=== PATIENT | male | born 1945 | race Caucasian/White ===

== ENCOUNTER → 2017-09-02 17:01 | Outpatient (CLI) | payer MEDICARE, OTHER, SELFPAY ==
[2017-09-02 17:08] LABS: Bacteria 0 SEEN /hpf (None Seen); Mucous, Urine 0 SEEN /hpf (<or=2+); Squamous Epithelial Cells - UA 0 SEEN /hpf (0-5); White Blood Cells 0 SEEN /hpf (0-5)
[2017-09-02 17:35] LABS: Color, Urine Yellow (Yellow); Glucose, Dipstick Normal (Normal); Ketone-Dipstick Negative (Negative); Leukocyte Esterase-Dipstick Negative /ul (Negative); Nitrite-Dipstick Negative (Negative); Occult Blood-Urine 10 /ul (Negative); Protein-Dipstick Negative (Negative); Specific Gravity, Urine 1.015 (1.002-1.030); Urine Bilirubin Dipstick Negative (Negative); Urine Clarity Clear (Clear); Urine Urobilinogen Normal (Normal)
[2017-09-02 17:45] LABS: Red Blood Cells-Urine 0-5 SEEN /hpf (0-5)
== END ==
PROVIDERS: Family Provider Preventive Medicine Occupational Medicine; PCP Preventive Medicine Occupational Medicine; Visit Provider Nurse Practitioner Adult Health
DX: R31.29 Other microscopic hematuria (principal)
CPT/HCPCS: 81001

== ENCOUNTER → 2018-12-15 06:30 | Outpatient (CLI) | payer MEDICARE, OTHER, SELFPAY ==
[2018-12-08 13:36] VITALS: BMI 25.7
--- NOTE | 2018-12-15 06:33 | MRI_ITS ---
STUDY: MRI BRAIN WITH AND WITHOUT CONTRAST REASON FOR EXAM: Male, 73 years old. Intermittent left-sided numbness. History of large B-cell lymphoma. CLL. TECHNIQUE: Standardized multiplanar fat and water weighted pulse sequences were obtained. 17 IV Dotarem was administered for the contrast portion of the examination. COMPARISON: MRI brain with and without contrast 08/17/2015. FINDINGS: No restricted diffusion to suspect acute or subacute ischemic infarct. Normal size of the ventricles and extra-axial spaces for the patient's age. Subcortical white matter T2 FLAIR hyperintensity foci in both cerebral hemispheres, left more than right. They are presumably secondary to microvascular disease and are unchanged. No midline shift and no mass effects. Normal bilateral basal ganglia. Normal thalami. There is no extra-axial fluid accumulation. Normal flow voids within the major intracranial circulation suggesting patency by spin echo criteria. Normal venous enhancement. There is no enhancing intra-axial or extra-axial abnormality. Normal sella turcica, pituitary gland, infundibular stalk, optic chiasm and hypothalamus. Normal tectal plate and pineal gland. Normal midbrain, laura and medulla. Normal cerebellum. Normal basal cisterns. Normal bilateral temporal bones. Normal bilateral internal auditory canals. No demonstrated orbital abnormality, within the constraints of a routine brain study. Normal visualized paranasal sinuses. Normal calvarium and skull base. Normal visualized soft tissue structures. Normal visualized upper cervical spine. MRI/Brain W/WO Contrast IMPRESSION: 1. No MRI evidence of acute or subacute ischemic infarct. 2. No MRI evidence of any enhancing lesions or enhancing mass extra-axially or intraaxially. 3. Chronic subcortical white matter ischemic changes in both cerebral hemispheres, left more than right. 4. No significant interval changes when compared to 08/17/2015. Electronically Signed: Hawk Bernal MD at 13:37 EDT , Service support ,
== END ==
PROVIDERS: Family Provider Preventive Medicine Occupational Medicine; PCP Preventive Medicine Occupational Medicine; Referring Provider Internal Medicine Medical Oncology; Visit Provider Internal Medicine Medical Oncology
DX: R20.2 Paresthesia of skin (principal)
CPT/HCPCS: 70553; A9575

== ENCOUNTER → 2019-06-14 12:33 | Outpatient (CLI) | payer MEDICARE, OTHER, SELFPAY ==
[2019-06-14 11:18] VITALS: BMI 25.9
[2019-06-14 12:15] VITALS: BMI 25.9
--- NOTE | 2019-06-14 12:34 | CT_ITS ---
STUDY: CT CHEST WITH CONTRAST REASON FOR EXAM: Male, 74 years old. HX NHL, NEW AXILLARY LUMP LEFT SIDE -- LAST CHEMO 2016 -- SURG-BILAT INGUINAL HERNIA -- +HTN RADIATION DOSAGE (If Supplied By Facility): CTDIvol = ( 16.21 ) mGy, DLP = ( 1536.09 ) mGycm TECHNIQUE: Transaxial imaging was performed following intravenous administration of IV 100mL Isovue-300. Individualized dose optimization techniques were used for this CT. COMPARISON: None. FINDINGS: Bilateral axillary lymphadenopathy consistent with known non-Hodgkin''s lymphoma. The largest discrete lymph node on the right measures 1.6 x 3.0 cm and the largest lymph node on the left measures 2.6 x 3.6 cm. The lungs are normal. There is no demonstrated pleural abnormality. Normal heart and pericardium. Normal mediastinum. Normal hilar regions. Normal enhanced pulmonary arteries. Normal aorta arch and descending thoracic aorta. Normal osseous structures. There is no demonstrated abnormality of the visualized upper abdomen. CT/Chest WITH Contrast IMPRESSION: Bilateral axillary lymphadenopathy consistent with known non-Hodgkin''s lymphoma. Electronically Signed: Arthur Aceves MD at 16:07 EST Tel , Service support ,
--- NOTE | 2019-06-14 12:34 | CT_ITS ---
STUDY: CT ABDOMEN AND PELVIS WITH CONTRAST REASON FOR EXAM: Male, 74 years old. HX NHL, NEW AXILLARY LUMP LEFT SIDE -- LAST CHEMO 2016 -- SURG-BILAT INGUINAL HERNIA -- +HTN RADIATION DOSAGE (If Supplied By Facility): CTDIvol = ( 16.21 ) mGy, DLP = ( 1536.09 ) mGycm TECHNIQUE: Transaxial images were obtained from the dome of the diaphragm to the symphysis pubis with oral contrast. IV 100mL Isovue-300 was administered. Sagittal and coronal images were reconstructed. Individualized dose optimization techniques were used for this CT. COMPARISON: None. FINDINGS: The visualized lung bases are unremarkable. The visualized portions of the heart are within normal limits. Normal liver. Normal gallbladder and extrahepatic biliary system. Normal spleen. Normal pancreas. Normal bilateral adrenal glands. 3 cm cyst lower pole right kidney. 3 cm exophytic cyst in the midsection left kidney. Normal visualized stomach. Normal small intestine. There are multiple colonic diverticula consistent with diverticulosis. There is non-visualization of the appendix. Normal abdominal aorta. Normal inferior vena cava. Mesenteric and retroperitoneal lymphadenopathy consistent with known lymphoma. Retrocaval lymphadenopathy measures 1.8 x 2.0 cm. Right common iliac lymphadenopathy measures 1.8 x 2.4 cm. Left external iliac lymphadenopathy measures 1.8 x 2.0 cm. Normal urinary bladder. Radiation seeds within the prostate gland. Small bilateral anal hernias containing fat. Normal osseous structures. CT/Abdomen/Pelvis WITH Contrast IMPRESSION: Mesenteric and retroperitoneal lymphadenopathy consistent with known non-Hodgkin''s lymphoma. Electronically Signed: Arthur Aceves MD at 15:59 EST Tel , Service support ,
== END ==
PROVIDERS: Family Provider Preventive Medicine Occupational Medicine; PCP Preventive Medicine Occupational Medicine; Referring Provider Nurse Practitioner Family; Visit Provider Nurse Practitioner Family
DX: R22.9 Localized swelling, mass and lump, unspecified (principal); Z85.72 Personal history of non-Hodgkin lymphomas
CPT/HCPCS: 36415; 71260; 74177; 80053; 83615; 85025; Q9967

== ENCOUNTER 2019-06-17 12:14 | Day surgery (SDC) | payer MEDICARE, OTHER, SELFPAY ==
[2019-06-15 09:15] VITALS: BMI 25.9
--- NOTE | 2019-06-17 | AXNB_PTH ---
PATIENT: LUCIEN BASS [place] [facility] [id number] AGE/SX: 74/M ROOM: RE06/17/[address]: Dr. Patsy Shoemaker MD : 1945 BED: DIS: 06/17/2019 SPEC #: [id number] RECD: 06/17/19 14:25 STATUS: TIGRE REQ #: [id number] JOSE: 06/17/19 00:[address]: Patsy Shoemaker DEPT: SURGICAL PATHOLOGY RECD BY: Karina Srinivasan ENTERED: 06/17/19 14:57 SP TYPE: AX NODE BX OTHR DR: Dr. Baldo Lanier DO Tissues: Axillary lymph node, NOS Procedures: Special Stain Group II Surgery Specimen Level IV Imprint (control) HEADER OPERATION: Excisional axillary lymph node biopsy PRE-OP DIAGNOSIS: Left axillary adenopathy with history of non-Hodgkin's lymphoma TISSUE SUBMITTED: Left axillary lymph node sent fresh at 1418 MICROSCOPIC DIAGNOSIS Left axillary lymph node, excisional biopsy: Consistent with involvement by Non Hodgkin lymphoma, small lymphocytic lymphoma/chronic lymphocytic leukemia. [facility] by a CD5 positive, CD23 positive, clonal Bcell population, CLL/SLL phenotype. See microscopic description and comment. SJ:rg 06/21/19 COMMENT Immediate evaluation by Dr. Pulliam: Monomorphous population of small lymphocytes mixed a few large atypical lymphocytes is noted. Immunohistochemistry ([id number]) supports the above diagnosis. Please make reference to previous specimen ([id number]), left axillary lymph node, biopsy with diagnosis of non-Hodgkin B-cell lymphoma consistent with small lymphocytic lymphoma. Correlation with clinical findings and appropriate follow up are necessary. Case has been reviewed in consultation with Dr. Pearson who concurs with the above diagnosis. IDC:AM MICROSCOPIC DESCRIPTION Slides are reviewed. The specimen shows lymph node tissue with complete effacement of normal lymph node architecture with infiltration with monomorphous lymphocytes. Focal areas of proliferation centers are noted, showing intermediate sized lymphocytes and large lymphocytes with prominent nuclei (immunoblasts). Differential diagnosis also includes possible Ricther transformation. Area of necrosis is not seen. The abnormal lymphocytic infiltrate is also present in the perinodal adipose tissue. GROSS DESCRIPTION Received fresh for lymphoma protocol labeled with the patient's name is a specimen designated left axillary lymph node. The specimen consists of a nodular piece of paris-pink soft tissue measuring 5 x 3.8 x 2 cm. Sections reveal fleshy cut surfaces. A section is submitted for flow cytometry studies. Four touch imprints are prepared, two submitted for Diff-Quik staining and two for H & E staining. Stitch Bonding Machine Drawer In sections are submitted in six cassettes. / SJ:ana 06/17/19 TC:0 CPT: 14826, 69041
--- NOTE | 2019-06-17 | IMM_PTH ---
PATIENT: LUCIEN BASS [place] [facility] [id number] AGE/SX: 74/M ROOM: RE06/17/[address]: Dr. Patsy Shoemaker MD : 1945 BED: DIS: 06/17/2019 SPEC #: [id number] RECD: 06/18/19 09:39 STATUS: TIGRE REQ #: [id number] JOSE: 06/17/19 00:[address]: Patsy Shoemaker DEPT: IMMUNOHISTOCHEMISTRY RECD BY: Karina Srinivasan ENTERED: 06/18/19 09:42 SP TYPE: IMMUNO OTHR DR: Dr. aBldo Lanier DO Tissues: Axillary lymph node, NOS Procedures: BCL-2 (add) BCL-6 (add) CD10 (add) CD20 (add) CD23 (add) CD43 (add) CD45 (add) CD5 (add) CD79A (add) CYCLIN (add) KI-67 (add) MUM1 (add) CD3 (initial) PHYSICIAN & [address] [address] SPECIMEN INFORMATION: Tissue Source: Left axillary lymph node Clinical Info: Left axillary adenopathy Specimen Number: [id number] #7 CPT code: 07573, 03288 x12 METHODOLOGY: Deparaffinized sections of prefer/formalin-fixed tissue or PAP/DQ stained slides are incubated with monoclonal/polyclonal antibodies/oligonucleotide probes. Localization is made via biotin free immunoperoxidase method. Appropriate controls are performed and reacted as expected. Results on target cell population are indicated in the following table: RESULTS: ANTIBODY / CLONE RESULT Block 7 CD3 (PS1) negative CD5 (SP10) positive CD20 (L26) positive CD43 (L60) positive CD45 (RP2/18) positive CD79a (11E3) positive CD10 (56C6) negative CD23 (1B12) positive BCL-2 (bcl-2/100/D5) positive BCL-6 (WH114A/A8) negative Cyclin D1/BCL-1 (SP4) negative MUM1 (MRQ-43) positive, in large atypical lymphocytes Ki-67 (30-9) positive, low to moderate These tests were developed and their performance characteristics determined by [facility]. They may not have been cleared or approved by the U.S. Food and Drug Administration. The FDA has determined that such clearance or approval is not necessary. The above immunohistochemical/dualISH markers are ordered and reviewed by the Pathologist. INTERPRETATION: Left axillary lymph node, excisional biopsy: Consistent with involvement by non-Hodgkin B-cell lymphoma, small lymphocytic lymphoma/ chronic lymphocytic leukemia. See comment. SJ:ana 06/21/19 Comment: Focal areas also show large atypical lymphocytes consistent with proliferative center. Differential diagnosis also includes possible Arriaga's transformation. Clinical correlation is necessary. Case has been reviewed in consultation with Dr. Pearson who concurs with the above diagnosis. IDC:AM
[2019-06-17 12:37] VITALS: BP 176/75; PULSE 71; RESP 15; TEMP 36.5; O2SAT 99; BMI 26.7
--- NOTE | 2019-06-17 12:40 | PCM.HP.BLA ---
History and Physical Date of Admission: 06/17/19 Date of Service: 06/15/19 MR#: [id number] Acct: [id number] Name: LUCIEN BASS Rep #: [id number] : 1945 Provider: Patsy Shoemaker MD Age/Sex: 74/M Location: [facility] Status: Signed Intake Vital Signs 06/15/19 BMI 25.9 06/15/19 Height 6 ft 06/15/19 Weight: 197 lb 06/15/19 BMI 26.7 06/15/19 BP 177/82 H 06/15/19 Blood Pressure Location Rt brachial 06/15/19 Position Sitting 06/15/19 Respiration 18 06/15/19 Pulse 61 06/15/19 Pulse Source Monitor 06/15/19 Temp 97.5 F L 06/15/19 Temp Source Oral 06/15/19 Pulse Oximetry (%) 97 06/15/19 Oxygen Delivery Method room air Intake Visit Reasons: axil lymphnode Chief Complaint: Acute visit- Lump under arm Small Engine Technician Required: No Is patient in pain?: No Allergies No Known Allergies Allergy (Verified 06/15/19 09:14) Medications Cholecalciferol (VIT D3) [Vitamin D] 1,000 unit PO DAILY 03/27/15 [History Confirmed 06/15/19] Cyanocobalamin (Vitamin B-12) [Vitamin B-12] 1,000 mcg PO DAILY 03/27/15 [History Confirmed 06/15/19] Diltiazem HCl [Diltiazem ER] 240 mg PO DAILY 03/27/15 [History Confirmed 06/15/19] Fluticasone Propionate [Flonase Allergy Relief] 9.9 ml NS PRN PRN 03/27/15 [History Confirmed 06/15/19] Latanoprost 1 drp EACH EYE QHS 03/27/15 [History Confirmed 06/15/19] Levothyroxine [Synthroid] 100 mcg PO DAILY 03/27/15 [History Confirmed 06/15/19] Mirtazapine [Remeron] 30 mg PO QHS 09/09/16 [History Confirmed 06/15/19] Venlafaxine HCl [Venlafaxine HCl ER] 150 mg PO QHS 09/09/16 [History Confirmed 06/15/19] Losartan Potassium [Cozaar] 50 mg PO DAILY 06/02/17 [History Confirmed 06/15/19] Aspirin [Lite Coat Aspirin] 325 mg PO DAILY 06/14/19 [History Confirmed 06/15/19] COUNT INCLUDES THE [facility] Medical History Stroke (Acute) med port removal (Acute) Glaucoma (Acute) Hyperlipidemia (Acute) Hypothyroidism (Acute) Seasonal allergies (Acute) Hypertension (Chronic) Surgical History (Updated 06/15/19 @ 09:12 by Caitie Ferrell) History of bilateral inguinal hernia repair (Acute) BILATERAL SHOULDER SURGERY (Acute) H/O cataract extraction (Acute) History of back surgery (Acute) Hx of tonsillectomy (Acute) S/P cardiac catheterization (Acute) Status post glaucoma surgery (Acute) Family History Mother Arthritis Hypertension Heart disease Father Hypertension Hyperlipidemia Heart disease Social History (Updated 06/15/19 @ 09:38 by Patsy Shoemaker MD) Smoking Status: Never smoker alcohol intake: current alcohol intake frequency: a few times a month substance use type: does not use HPI HPI HPI: LUCIEN BASS, is a 74 M who presents to the office today for HPI HPI HPI: LUCIEN BASS, is a 74 M who presents to the office today for enlarged left axillary lymph node. Patient states he felt its last Friday night when he was in the shower denies any pain. Patient does have past medical history for non-Hodgkin's lymphoma and had a previous left axillary node excision in 2014 as well as chemotherapy and the last one was in 2016. Patient has had follow-up CT PET scans that did not show any activity in the lymph nodes. Patient repeat CT chest did show a left axillary node largest is 3.6 x 2.6 cm and largest right axillary node is 3 cm x 1.6 cm. Patient also had a CT abdomen pelvis showed some retroperitoneal adenopathy. ROS General General: No weight change, appetite, fatigue, colon cancer, breast cancer or weakness HEENT HEENT: Yes eye surgery; no difficulty swallowing, eye injury, swollen glands or hoarseness Endo Endocrine: Yes thyroid disease; no diabetes mellitus, thyroid cancer, Hair loss, heat intolerance or cold intolerance Skin Skin: No rash or changing moles Breast Breast: No left breast lump, right breast lump, nipple discharge, breast pain, abnormal mammogram, abnormal US or breast enlargement Musc Musculoskeletal: Yes back problems; no arthritis, rheumatoid arthritis, gout or joint pain Cardio Cardiovascular: Yes high blood pressure; no murmur, pacemaker, heart disease, atrial fibrillation, heart attack, heart stent, palpitations, shortness of breat with exertion or chest pain Psych Psychiatric: Yes depression; no anxiety or hearing voices Resp Respiratory: No shortness of breath, No sleep apnea, No cough, No COPD, No asthma, No emphysema, No wheezing Gastro Gastrointestinal: No abdominal pain, No nausea or vomiting, No diarrhea, Yes constipation, No blood in stool, Yes acid reflux, Yes hemorrhoids, No ulcers, No gallbladder problem, No black,tarry stools Nick Hematologic: Yes blood thinners, No blood disorders, No bleeding, No anemia, No blood clots Neuro Neurologic: No system reviewed and no additional complaints, except as docu, No as per HPI, No abnormal walking, No abnormal hearing, No abnormal movements, No abnormal speech, No behavioral changes, No burning sensations, No confusion, No seizure-like activity, No unsteadiness, No dizziness, No localized weakness, No frequent falls, No headache(s), No lack of coordination, No loss of vision, No memory loss, No numbness, No other visual disturbances, No radiating pain, No restless legs, No sensory deficit, No fainting, No tingling, No tremor(s), No weakness, Yes other (Stroke) Exam Const General: cooperative, comfortable, no acute distress Chest Breast inspection: abnormal inspection of the axilla (Left axilla with an obvious bulge) Breast Palpation: Yes axillary lymphadenopathy (Bilaterally, largest in the left about 4 cm x 3 cm on exam, nontender, mobile), No nipple discharge Resp Effort & Inspection: normal respiratory effort Cardio Rate: regular rate Heart Sounds: no murmurs Assessment & Plan Problems 1. Axillary adenopathy R59.0 2. History of non-Hodgkin's lymphoma Z85.72 Plan Discussed with patient would plan for an excisional left axillary lymph node biopsy. Discussed procedure including but not limited to risk of bleeding, infection, seroma, etc. Patient no further questions this time. Patsy Shoemaker M.D. Pager: [phone] [facility] [address] [place] [address], [facility], [address] [place] [address] Office: [phone] Plan Detail Follow Up We will schedule excisional biopsy Coding Level of Care Code Off vis,new,level 3 Diagnoses Axillary adenopathy R59.0 History of non-Hodgkin's lymphoma Z85.72 06/15/19 0938 <Electronically signed by Patsy Shoemaker MD> Date Patsy Shoemaker MD
[2019-06-17] MEDS: Lactated Ringers 1,000 ML 100 ML IV (12:50)
[2019-06-17] MEDS: Cefazolin 2 GM in 0.9% Normal Saline 100 ML IV (13:24)
[2019-06-17] MEDS: Bupivacaine Mpf 0.5% 30 ML VIAL (14:20)
--- NOTE | 2019-06-17 14:22 | OP.PCM_ITS ---
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 Correct patient, procedure, site, positioning, special equipment was verified prior to the procedure. General anesthesia was induced. Left axilla was prepped draped in usual sterile fashion. An incision was made with 15 blade scalpel at the lower hairline. This was dissected with electrocautery through the subcutaneous tissue. The enlarged lymph node was dissected. Clips were used for vessel/lymphatics. Left axillary lymph nodes were sent to pathology as a fresh specimen. It was approximately 4 cm x 3 cm. Wound was irrigated. Hemostasis was assured. Wound was closed with a single suture of 3-0 Vicryl interrupted to close the space, subdermal 3-0 Vicryl sutures and the skin was ran with a 4-0 Monocryl. Dermabond was placed on the incision. Patient was extubated. Patient tolerated procedure well and was taken to the postanesthesia care unit in stable condition. - Complications None
--- NOTE | 2019-06-17 14:26 | DCINST_ITS ---
Discharge Diet: Light diet - advance as tolerated May shower in (days): 1 Lifting Restrictions: No lifting greater than 20 pounds with the left arm x1 week Call your doctor if your incision/area has: Continuous Slow Oozing, Sudden Increased Bleeding, Increased Pain/ Swelling, Increased Redness, Foul Smelling Discharge, Swelling at the incision site Call your doctor if you observe: Fever of 101 or Higher Allergies/Adverse Reactions: Allergies No Known Allergies Allergy (Verified 06/17/19 12:25) Medications to take at Discharge Cholecalciferol (VIT D3) [Vitamin D] 1,000 unit PO DAILY 03/27/15 Cyanocobalamin (Vitamin B-12) [Vitamin B-12] 1,000 mcg PO DAILY 03/27/15 Diltiazem HCl [Diltiazem ER] 240 mg PO DAILY 03/27/15 Latanoprost 1 drp EACH EYE QHS 03/27/15 Levothyroxine [Synthroid] 100 mcg PO DAILY 03/27/15 Mirtazapine [Remeron] 30 mg PO QHS 09/09/16 Venlafaxine HCl [Venlafaxine HCl ER] 75 mg PO QHS 09/09/16 Losartan Potassium [Cozaar] 50 mg PO DAILY 06/02/17 Aspirin [Lite Coat Aspirin] 325 mg PO DAILY 06/14/19 Esomeprazole Mag Trihydrate [Nexium] 20 mg PO DAILY 06/15/19 Pravastatin [Pravachol] 80 mg PO QHS 06/15/19 Primary Care Physician: Baldo Lanier DO [Primary Care Provider] - Test Results: Test results from this visit will be discussed in further detail at your follow- up appointment, if applicable. Please Follow Up With: Patsy Shoemaker MD - After 5:00 on the weekends call [phone] with any concerns When: Call the office for a follow-up appointment in 1 to 2 weeks Proposed Discharge Date: 06/17/19
[2019-06-17 14:47] VITALS: BP 128/75; BP 175/75; PULSE 83; RESP 14; TEMP 37.1; O2SAT 96
[2019-06-17 15:00] VITALS: BP 133/70; BP 175/75; PULSE 68; RESP 16; O2SAT 93
[2019-06-17 15:15] VITALS: BP 127/68; BP 175/75; PULSE 63; RESP 16; O2SAT 94
[2019-06-17 15:33] VITALS: BP 122/69; BP 175/75; PULSE 61; RESP 16; TEMP 37; O2SAT 96
[2019-06-17 15:57] VITALS: BP 175/75
== END 2019-06-17 15:59 | disposition home or self-care (01) ==
LOC: SDC 12:15 → AC 12:17
PROVIDERS: Family Provider Preventive Medicine Occupational Medicine; PCP Preventive Medicine Occupational Medicine; Referring Provider Surgery; Visit Provider Surgery
PROC: (CPT 38500; principal; 2019-06-17 13:35)
DX: C91.10 Chronic lymphocytic leukemia of B-cell type not having achieved remission (principal); I10 Essential (primary) hypertension; E03.9 Hypothyroidism, unspecified; E78.5 Hyperlipidemia, unspecified; K21.9 Gastro-esophageal reflux disease without esophagitis; Z85.72 Personal history of non-Hodgkin lymphomas; Z79.82 Long term (current) use of aspirin; Z79.899 Other long term (current) drug therapy; Z86.73 Personal history of transient ischemic attack (TIA), and cerebral infarction without residual deficits
CPT/HCPCS: 38525; 88305; 88313; 88341; 88342; J7120; J2405

== ENCOUNTER → 2019-09-01 06:30 | Outpatient (CLI) | payer MEDICARE, OTHER, SELFPAY ==
[2019-08-24 10:24] VITALS: BMI 26.5
--- NOTE | 2019-09-01 06:30 | MRI_ITS ---
STUDY: MRI LEFT HAND REASON FOR EXAM: Male, 74 years old. left hand/wrist swelling, nki, hx CLL lyphoma TECHNIQUE: Standardized fat and water weighted pulse sequences were obtained in all 3 orthogonal planes. COMPARISON: None. FINDINGS: FIRST DIGIT: Normal visualized first metacarpus. Normal metacarpophalangeal joint. Normal interphalangeal joint. Normal proximal, and distal phalanges. Normal flexor and extensor tendons. There is no soft tissue abnormality. SECOND DIGIT: Normal visualized second metacarpus. Normal metacarpophalangeal joint. Normal proximal and distal interphalangeal joints. Normal proximal, middle and distal phalanges. Normal flexor and extensor tendons. There is no soft tissue abnormality. THIRD DIGIT: Normal visualized third metacarpus. Normal metacarpophalangeal joint. Normal proximal and distal interphalangeal joints. Normal proximal, middle and distal phalanges. Normal flexor and extensor tendons. There is no soft tissue abnormality. FOURTH DIGIT: Normal visualized fourth metacarpus. Normal metacarpophalangeal joint. Normal proximal and distal interphalangeal joints. Normal proximal, middle and distal phalanges. Normal flexor and extensor tendons. There is no soft tissue abnormality. FIFTH DIGIT: Normal visualized fifth metacarpus. Normal metacarpophalangeal joint. Normal proximal and distal interphalangeal joints. Normal proximal, middle and distal phalanges. Normal flexor and extensor tendons. There is no soft tissue abnormality. Normal visualized thenar and hypothenar muscles. Normal lumbricalis and interosseous muscles. Diffuse edema of the subcutaneous fat particularly in the metacarpal region and wrist but also to a lesser extent in the fingers possibly consistent with cellulitis or passive venous congestion. No left-sided fluid collection to suggest abscess. MRI/Upper Ext No Joint W/WO Cont IMPRESSION: Diffuse soft tissue swelling possibly from cellulitis or passive congestion. Electronically Signed: Arthur Aceves MD at 14:15 EDT Tel , Service support ,
--- NOTE | 2019-09-01 06:30 | MRI_ITS ---
STUDY: MRI LEFT WRIST WITH AND WITHOUT CONTRAST REASON FOR EXAM: Male, 74 years old. swelling left hand/wrist, hx of CLL lymphoma,nki TECHNIQUE: Standardized fat and water weighted pulse sequences were obtained in all 3 orthogonal planes, pre-and post contrast administration. IV Dotarem 18ml was administered for the contrast portion of the examination. COMPARISON: None. FINDINGS: Normal visualized distal radius and ulna. Normal distal radioulnar Articulation (DRUJ). Normal triangular fibrocartilaginous complex (TFCC). Normal carpal bones. Normal pisotriquetral articulation. The scapholunate ligament is torn with widening of the scapholunate interval to 10 mm consistent with scapholunate dissociation. Slight volar rotation of the scaphoid but relatively normal position of the lunate and no evidence of dorsal intercalated segment instability (DISI). Mild radiocarpal joint arthrosis with small erosions of the dorsal aspect of the distal radius and scaphoid. Normal visualized dorsal (extrinsic) ligaments. Normal visualized volar (extrinsic) ligaments. Normal extensor tendons. Normal flexor tendons. Normal carpal tunnel with a normal median nerve. There is degenerative arthrosis of the carpometacarpal articulation of the thumb with mild radial subluxation of the first metacarpus. Normal second through fifth carpometacarpal articulations. Normal visualized metacarpal bones. Diffuse skin thickening and edema of the subcutaneous fat both volarly and dorsally which may be related to cellulitis or venous congestion. There is no abnormal contrast enhancement. MRI/Upper Ext Joint Only W/WO Cont IMPRESSION: 1. Diffuse skin thickening and soft tissue swelling possibly from cellulitis or passive venous congestion. No abscess. 2. 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 Associated mild radiocarpal joint arthrosis. 3. Mild first carpometacarpal joint arthrosis. Electronically Signed: Arthur Aceves MD at 13:24 EDT Tel , Service support ,
== END ==
PROVIDERS: PCP Preventive Medicine Occupational Medicine; Referring Provider Internal Medicine Medical Oncology; Visit Provider Internal Medicine Medical Oncology
DX: M79.89 Other specified soft tissue disorders (principal); Z85.72 Personal history of non-Hodgkin lymphomas
CPT/HCPCS: 73220; 73223; A9575; A4216

== ENCOUNTER 2019-09-20 12:00 | Outpatient (RCR) | payer MEDICARE, OTHER, SELFPAY ==
[2019-09-06 11:35] VITALS: BMI 26.1
--- NOTE | 2019-09-08 14:20 | HP.OTEVAL_ITS ---
Patient's Visit Information LUCIEN BASS is a 74 year old M, referred to Occupational Therapy by Connor Roca MD, with a diagnosis of left UE lymphedema. Date of Evaluation: 09/08/19 Occupational Therapist: Vika Davison, OTR/Khalif, CHT - Subjective Subjective: This 74 year old male was seen for OT eval with dx of lymphedema. pt states Jun.17 he had one lymph node removed. pt states he has had swelling since. pt states he had this lymphnode biopsy in 2015 and had no swelling then. pt is concerned with suha- states he works out with free weights about every other day. pt would like to know what he can do to assist in decreasing edema and what compression garments he might need. - Pain left UE 0 - Lymphedema (Circumferential Measure) MCP: right 22cm left 24cm Wrist: right 18cm left 20cm Lower forearm: right 19cm left 21.5cm Largest forearm: right 27cm left 28cm Elbow: right 28cm left 28cm Largest humerus: right 29cm left 30cm Axcillary: right 36 left 36cm - Sensation Sensation Comments: denies - Quick DASH-Disab of Arm,Shoulder& Hand Quick DASH Score: 9.0900 - Goals Demonstrate a 20% reduction in edema by d/c: Yes Demonstrate adequate knowledge of self-massage by 2nd week: Yes Demonstrate adequate knowledge skin care/prec by 2nd week: Yes Demonstrate adequate knowledge therapeutic exercises by d/c: Yes Select approp compression garment w/donning/care/wear by d/c: Yes Voice need to replace compression garment every 4-6mo by dc: Yes - Rehabilitation General Assessment: Pt demo with edema in left arm/hand and would benefit from skilled OT services 2-3 visits to ensure proper fit of compression garments 20- 30mmHg, and glove, along with manual lymph drainage. Today therapists ed. pt on lymph systme, beneficial ex, and need of compression garments. pt demo understanding and agree to POC. Rehabilitation Potential: Good - Anticipated Interventions Anticipated Interventions: Education re Diagnosis, Manual Lymph Drainage, Edu cation re Life-long lymphedema Management, Education re Skin Care and Precautions, Education re Self Massage Techniques, Education re Correct Donning Tech,Care&Wearing Sched Comp Garments, Home Program - Visit Plan Frequency: 1x/Week Duration: 3 Weeks TEXT: Thank you for the opportunity to evaluate your patient. For Medicare and Medicare HMO plans, please review the plan of care and approve it. It will need to be FAXED BACK to us at [phone] for Medicare purposes. Please let me know if there are questions or concerns regarding this plan of care. Physician Signature: Date:
--- NOTE | 2020-02-16 15:41 | HP.OT.NRP ---
LUCIEN BASS was seen in my office for initial evaluation on 09/08/19. The following Plan of Care was established for this patient: Initial Frequency: 1x/Week Initial Duration: 3 Weeks Plan: pt to call if he has questions or wants to bring his in to learn manual lymph massage Anticipated Interventions: Education re Diagnosis, Manual Lymph Drainage, Education re Life-long lymphedema Management, Education re Skin Care and Precautions, Education re Self Massage Techniques, Education re Correct Donning Tech,Care&Wearing Sched Comp Garments, Home Program This patient was last seen in our office 09/20/19. Pertinent comments regarding their Occupational therapy will appear below: pt seen for one visit following initial eval- pt states he was doing fine and would call if he needed further tx. due to time lapse in services pt d/c at this time. At this point I will be discontinuing this patient from occupational therapy. I would be happy to see this patient again in the future if found appropriate by the physician. Thank you! Vika Davison, OTR/L, CHT
== END 2019-09-20 19:00 | disposition home or self-care (01) ==
LOC: OT 12:00
PROVIDERS: PCP Preventive Medicine Occupational Medicine; Referring Provider Internal Medicine Medical Oncology; Visit Provider Internal Medicine Medical Oncology
DX: M79.89 Other specified soft tissue disorders (principal)
CPT/HCPCS: 97140; 97166; 97530

== ENCOUNTER 2020-03-25 12:17 | Emergency (ER) | payer MEDICARE, OTHER, SELFPAY ==
[2020-03-23 10:26] VITALS: BMI 27.4
[2020-03-25 12:18] VITALS: BP 118/64; PULSE 103; RESP 15; TEMP 36.6; O2SAT 97; BMI 27.7
--- NOTE | 2020-03-25 12:30 | EKG12_ITS ---
Test Reason : Blood Pressure : / mmHG Vent. Rate : 092 BPM Atrial Rate : 092 BPM P-R Int : 180 ms QRS Dur : 082 ms QT Int : 356 ms P-R-T Axes : 069 070 072 degrees QTc Int : 440 ms Normal sinus rhythm Nonspecific T-wave Abnormality Confirmed by KARTHIK FLOERS, BOBBY ([id number]), news video editor FELICITA STODDARD ([id number]) on 03/28/2020 12:32:31 PM Referred By: MARIANNE Confirmed By:BOBBY ANGELES MD
--- NOTE | 2020-03-25 12:32 | CT_ITS ---
STUDY: CT ABDOMEN AND PELVIS WITH CONTRAST REASON FOR EXAM: Male, 75 years old. ABD PAIN, INCREASE IN SIZE OF? RT INGUINAL HERNIA, HX-DIVERTICULITIS, NHL, CLL HAD CHEMO, SURG-LOW BACK, BILAT INGUINAL HERNIA REPAIR RADIATION DOSAGE (If Supplied By Facility): CTDIvol = ( 16.42 ) mGy, DLP = ( 2201.53 ) mGycm TECHNIQUE: Transaxial images were obtained from the dome of the diaphragm to the symphysis pubis without oral contrast. IV 100mL Isovue-300 was administered. Sagittal and coronal images were reconstructed. Individualized dose optimization techniques were used for this CT. COMPARISON: 06/14/2019 FINDINGS: The visualized lung bases are unremarkable. The visualized portions of the heart are within normal limits. Normal liver. There is a stable right subphrenic calcification. Normal gallbladder and extrahepatic biliary system. Normal spleen. Normal pancreas. Normal bilateral adrenal glands. There are bilateral renal cysts. Normal visualized stomach. Normal small intestine. There are multiple colonic diverticula consistent with diverticulosis. There is non-visualization of the appendix. There is diffuse atherosclerotic calcification of the abdominal aorta, without a demonstrated aneurysm. Normal inferior vena cava. Normal retroperitoneum. The urinary bladder is slightly irregular anteriorly, not significantly changed since the prior examination. There are postsurgical changes of the prostate gland. Normal abdominal wall. There is a right inguinal hernia that contains a rounded low attenuation focus that appears to be focal fluid and not contiguous with a loop of bowel. There appears to be fat and mesentery extending into the right inguinal hernia as well. No bowel obstruction is visualized. There are diffuse degenerative changes of the visualized lumbar spine. CT/Abdomen/Pelvis W IV Cont ONLY IMPRESSION: Right inguinal hernia containing mesentery, fat and focal fluid. Colonic diverticulosis. Atherosclerosis. Degenerative changes of the lumbar spine. Bilateral renal cysts. Electronically Signed: Ebony Beach MD at 14:35 EDT Tel , Service support ,
--- NOTE | 2020-03-25 12:44 | ED.DCSUM_ITS ---
- ER Visit Summary Date of Service: 03/25/20 Chief Complaint: [Abdominal pain] History of Present Illness: The patient is a 75 M [presents to the emergency department complaint of abdominal pain that started initially 3 weeks ago with a lump to his right lower quadrant. Patient states that pain started about a week ago. Patient states that he was seen by the nurse practitioner at his oncologist office yesterday however the lump is gotten twice as big in the last 24 hours and become more painful. Pain worse with movement. He has had no nausea or vomiting. He denies any fever. Food does not seem to affect it. Patient states that he had bilateral mesh repair many years ago for inguinal hernias. Patient has history of hypertension high cholesterol, lymphoma, CLL, and hypothyroidism.] Physical Examination: [HEENT-PERRLA, EOMI. Cranial nerves II through XII grossly intact. TMs clear. Mucous membranes moist. No adenopathy. Cardiovascular-regular rate and rhythm without murmur or ectopy Lungs-clear to auscultation, chest wall stable without crepitus or subcu emphy sema Abdomen-normoactive bowel sounds, soft. Patient does have a right-sided inguinal swelling that is tender to palpation. There is no discoloration to the skin noted. I attempted to reduce the suspected hernia unsuccessfully and this was painful. Extremities-intact ?4, normal range of motion, normal pulses, atraumatic] Test Results: [CBC with differential showed a white of 7.2, hemoglobin 13, hematocrit 41, plates 192. Chemistries unremarkable. Lactate was normal at 1.7. CT scan of the abdomen pelvis with IV contrast obtained showed a right inguinal hernia with fat and mesentery as well as a fluid collection within it.] Emergency Department Course and Treatment: [ IV established He denies anything for pain. I immediately discussed case with surgeon on-call who asked that we obtain a CT scan of the abdomen with IV contrast and place patient in Trendelenburg position with ice to the suspected hernia.] CT results were discussed with surgeon. I was asked to have patient follow-up with Dr. Song Brennan whom the patient has an appointment to see in 2 days. Patient also to follow-up with his urologist. It was felt that patient did not need emergent surgery at this time. Treatment Plan: [Follow-up with general surgery in 2 days. Patient advised to return if worsening pain, fever, vomiting, increased swelling or discoloration to the skin. Patient given a prescription for Jameson for pain.] Disposition: [Discharged home in stable condition] Impression: [Inguinal hernia] This note was generated with [employer] dictation software. It may contain incorrect words, spelling, and punctuation that were not noted in review of the chart prior to signing ED Disposition - Plan for ED Patient: Referrals: Baldo Lanier DO [Primary Care Provider] -
[2020-03-25 13:03] LABS: Absolute Neutrophil Count 3.5 X10^3/uL (2.0-7.7); Basophil# 0.05 X10^3/uL; Basophil% 0.7 % (0-1); Eosinophil# 0.09 X10^3/uL; Eosinophils% 1.3 % (0-5); Hematocrit 40.6 % (40-54); Lymphocyte % 27.9 % (19-41); Mean Corpuscular Hgb 31.2 pg (27.0-32.0); Mean Corpuscular Volume 97.4 fL (80-94); Mean Platelet Vol. 10.3 fl (6.2-12.0); Monocyte# 1.41 X10^3/uL; Monocyte% 19.7 % (0-10); NRBC Flagged by Analyzer 0 % (0-5); Neutrophil # 3.45 X10^3/uL (2.7-7.7); Neutrophil % 48.2 % (47-70); Platelet Count 192 K/mm3 (150-450); RBC Distribution Width CV 13.7 % (11.6-14.6); RBC Distribution Width SD 49.6 fl (35.1-43.9); Red Blood Count 4.17 M/mm3 (4.6-6.2); White Blood Count 7.2 K/mm3 (4.4-11.0)
[2020-03-25 13:14] LABS: Anion Gap 5 (5-15); BUN 23 mg/dL (7-18); BUN/Creat Ratio 22.3 RATIO (10-20); Calcium,Total 8.4 mg/dL (8.5-10.1); Chloride 108 mmol/L (98-107); Creatinine, Serum 1.03 mg/dL (0.70-1.30); EST Glomerular Filtration Rate 75 mL/min (>60); Est Glom Filt Rate - Afr Amer 91 mL/min (>60); Estimated Creatinine Clearance 69.06 ml/min; Glucose 98 mg/dL (74-106); Potassium 3.8 mmol/L (3.5-5.1); Sodium Level 142 mmol/L (136-145)
[2020-03-25] MEDS: 0.9% Normal Saline 1,000 ML 150 ML IV (13:14)
[2020-03-25 13:27] LABS: Lactic Acid 1.7 mmol/L (0.4-1.9)
--- NOTE | 2020-03-25 15:14 | ED.DEP ---
ED Disposition - Plan for ED Patient: Instructions: ED Hernia Inguinal Prescriptions: Hydrocodone Bitart/Apap 5-325 [[place] 5MG-325MG] 1 tab PO Q4H PRN PRN 2 Days #10 tab PRN Reason: Pain Prescription Printed Referrals: Baldo Lanier DO [Primary Care Provider] - Song Brennan MD [STAFF PHYSICIAN] - 2 Days
[2020-03-25 15:21] VITALS: BP 150/82; PULSE 72; RESP 12; O2SAT 97
--- NOTE | 2020-03-26 08:13 | PCM.CONS.GEN ---
Problem List (1) Recurrent right inguinal hernia Status: Acute Reason for Consult Date of Consultation: 03/25/20 Reason for Consultation: Right inguinal hernia History of Present Illness: The patient is a 75 year old M presents with right inguinal pain. The patient has had bulging for several weeks and has an appointment on Friday with Dr. Brennan. Patient reports he had his hernias fixed in the 90s. Patient reports that he is having pain when pressing on the hernia but no nausea or vomiting or abdominal pain. Past Medical History Past Medical History (Chronic Problems): Chronic Problems (Last Reviewed 03/23/20 @ 10:26 by Milena Stratton) History of non-Hodgkin's lymphoma (Chronic) CLL (chronic lymphocytic leukemia) (Chronic) NHL (non-Hodgkin's lymphoma) (Chronic) Swelling of left hand (Chronic) Medical History: Medical History (Last Reviewed 03/23/20 @ 10:26 by Milena Stratton) Glaucoma H40.9 Hyperlipidemia E78.5 Hypothyroidism E03.9 Seasonal allergies J30.2 Stroke I63.22 NOVEMBER 2018 med port removal Hypertension I10 Allergies No Known Allergies Allergy (Verified 03/25/20 12:18) Home Medications: Ambulatory Orders Medication Instructions Recorded Cholecalciferol (VIT D3) [Vitamin 1,000 unit PO DAILY 03/27/15 D] Cyanocobalamin (Vitamin B-12) 1,000 mcg PO DAILY 03/27/15 [Vitamin B-12] Latanoprost 1 drp EACH EYE QHS 03/27/15 Levothyroxine [Synthroid] 100 mcg PO DAILY 03/27/15 Losartan Potassium [Cozaar] 100 mg PO DAILY 06/02/17 Aspirin [Lite Coat Aspirin] 325 mg PO DAILY 06/14/19 Esomeprazole Mag Trihydrate 20 mg PO DAILY 06/15/19 [Nexium] Pravastatin [Pravachol] 80 mg PO QHS 06/15/19 Carisoprodol [Soma] 350 mg PO 4X/DAY PRN PRN 12/23/19 Mirtazapine [Remeron] 30 mg PO QHS 12/23/19 Venlafaxine HCl [Venlafaxine HCl 150 mg PO DAILY 12/23/19 ER] hydrALAZINE [Apresoline] 50 mg PO BID 12/23/19 Ibrutinib [Imbruvica] 280 mg PO QHS 03/16/20 Hydrocodone Bitart/Apap 5-325 1 tab PO Q4H PRN PRN 2 Days #10 tab 03/25/20 [[place] 5MG-325MG] Surgical History: Surgical History (Last Reviewed 03/23/20 @ 10:26 by Milena Startton) History of surgical procedure on eye proper using laser Z98.890 BILATERAL SHOULDER SURGERY H/O cataract extraction Z98.49 History of back surgery Z98.890 History of bilateral inguinal hernia repair Z98.890, Z87.19 Hx of tonsillectomy Z98.890, Z90.89 S/P cardiac catheterization Z98.890 Status post glaucoma surgery Z98.83 s/p axillary lymph node biopsy 06/17/19 Smoking Status: Never smoker Review of Systems Constitutional: Denies: Anorexia, Fever HEENT: Denies: Difficulty Swallowing Cardiovascular: Denies: Chest Pain Respiratory: Denies: Cough, Shortness of Breath Gastrointestinal: Reports: - - Right groin bulging and pain with palpation. Denies: Constipation, Diarrhea, Hematemesis, Hematochezia, Nausea, Vomiting Musculoskeletal: Denies: Joint Tenderness Skin: Denies: Dryness Neurological: Denies: Balance problems Hematologic/ Lymphatic: Denies: Anemia Patient Problems: Active and Suspected Problems (Last Reviewed 03/23/20 @ 10:26 by Milena Stratton) Seroma after procedure (Acute) Encounter for education (Acute) Bradycardia (Acute) Inguinal hernia (Acute) - Physical Exam Vitals/I&O's: Vital Signs Temp Pulse Resp BP Pulse Ox 97.8 F 72 12 150/82 H 97 03/25/20 12:18 03/25/20 15:21 03/25/20 15:21 03/25/20 15:21 03/25/20 15:21 Oxygen Delivery Method Room Air Weight: 204 lb 5.896 oz Body Mass Index (BMI) 27.7 Intake and Output for Last 24 Hours 03/24/20 03/25/20 03/26/20 23:59 23:59 23:59 Intake Total 320 / 320 Balance 320 / 320 General: Alert, Oriented x3 Neck: No JVD Lungs: Normal air movement Cardiovascular: Regular rate, Regular Rhythm Abdomen: Soft, Non Tender, Non-Distended, - - Hernia in the right inguinal region Psych/Mental Status: Normal Affect Laboratory Results 03/25/20 12:55: WBC 7.2, RBC 4.17 L, Hgb 13.0, Hct 40.6, MCV 97.4 H, MCH 31.2, MCHC 32.0, RDW Std Deviation 49.6 H, RDW Coeff of Deborah 13.7, Plt Count 192, MPV 10.3, Immature Gran % (Auto) 2.200 H, Neut % (Auto) 48.2, Lymph % (Auto) 27.9, [place] % (Auto) 19.7 H, Eos % (Auto) 1.3, Baso % (Auto) 0.7, Absolute Neuts (auto) 3.5, Absolute Lymphs (auto) 2.00, Nucleated RBC % 0 03/25/20 12:55: Sodium 142, Potassium 3.8, Chloride 108 H, Carbon Dioxide 29.0, Anion Gap 5, BUN 23 H, Creatinine 1.03, Estim Creat Clear Calc 69.06, Est GFR (MDRD) Af Amer 91, Est GFR (MDRD) Non-Af 75, BUN/Creatinine Ratio 22.3 H, Glucose 98, Calcium 8.4 L 03/25/20 12:55: Lactic Acid 1.7 Clinical Impression(s) from Imaging Studies Abdomen/Pelvis CT 03/25/20 12:32 IMPRESSION: Right inguinal hernia containing mesentery, fat and focal fluid. Colonic diverticulosis. Atherosclerosis. Degenerative changes of the lumbar spine. Bilateral renal cysts. Electronically Signed: Ebony Beach MD at 14:35 EDT Tel , Service support , Assessment/Plan All Active Problems (Last Reviewed 03/23/20 @ 10:26 by Milena Stratton) Axillary adenopathy (Acute) Night sweats (Acute) Elevated LDH (Acute) Seroma after procedure (Acute) Encounter for education (Acute) Bradycardia (Acute) Inguinal hernia (Acute) Recurrent right inguinal hernia (Acute) 75-year-old male with recurrent right inguinal hernia 1. The patient's hernia contains fat and a fluid collection. The fluid collection is not contiguous with bowel. The fat portion of his inguinal hernia appears stable when compared to his CAT scan from May 2019. Patient is not having any nausea or vomiting or dilated bowel. I believe the fluid collection could be a new hydrocele but there was a small area that appeared to contain fluid on his prior CT and his prior PET scan. It was not as full but it is increased in size. Given the fact that he is not having any obstruction and the hernia does not contain bowel and he is not having any pain at rest only when pushing on it, I believe he does not have a surgical emergency. The patient has an appointment on Friday with Dr. Brennan. Patient may need concurrent urology consult for possible hydrocele resection during surgery if that is found. I believe the patient can be discharged and follow-up with Dr. Brennan. If anything changes he can follow-up in the emergency room tomorrow or tonight and if needed to have emergency surgery but right now his white count is normal and he does not appear to have any skin changes. Vinh Sandoval MD Pager: [facility] [address] [place] [address], [address] [place] [address] Office:
== END 2020-03-25 15:28 | disposition home or self-care (01) ==
LOC: ED 13:09
PROVIDERS: Emergency Provider Emergency Medicine; PCP Preventive Medicine Occupational Medicine
DX: K40.90 Unilateral inguinal hernia, without obstruction or gangrene, not specified as recurrent (principal); Z85.72 Personal history of non-Hodgkin lymphomas; Z86.73 Personal history of transient ischemic attack (TIA), and cerebral infarction without residual deficits
CPT/HCPCS: 74177; 80048; 83605; 85025; 93005; 96360; 96361; 99284; J7030; Q9967; A4216

== ENCOUNTER 2020-04-14 09:27 | Day surgery (SDC) | payer MEDICARE, OTHER, SELFPAY ==
[2020-03-27 13:48] VITALS: BMI 27.7
[2020-04-13 10:57] VITALS: BMI 27.6
[2020-04-14] VITALS (7 sets, daily range): BP systolic 110–150; BP diastolic 60–74; PULSE 84–97; RESP 16–18; TEMP 36.2–36.9; O2SAT 92–98; BMI 27.3
[2020-04-14] MEDS: Lactated Ringers 1,000 ML 100 ML IV ×2 (10:10→12:39)
--- NOTE | 2020-04-14 10:22 | PCM.HP.STD ---
Problem List (1) Hydrocele Status: Acute Qualifiers: Hydrocele type: encysted Qualified Code(s): N43.0 - Encysted hydrocele History of Present Illness Date of Admission: 04/14/20 Chief Complaint: Right groin with communicating hydrocele The patient is a 75 year old male who appears to have a communicating hydrocele in the right groin inguinal area down to the testicle renal proceed with a open hydrocelectomy of a complex communicating hydrocele Past Medical History Past Medical History (Chronic Problems): Chronic Problems (Last Reviewed 04/13/20 @ 10:56 by Milena Stratton) History of non-Hodgkin's lymphoma (Chronic) CLL (chronic lymphocytic leukemia) (Chronic) NHL (non-Hodgkin's lymphoma) (Chronic) Swelling of left hand (Chronic) Medical History: Medical History (Last Reviewed 04/13/20 @ 10:56 by Milena Stratton) History of non-Hodgkin's lymphoma (Chronic) Z85.72 Axillary adenopathy (Acute) R59.0 Night sweats (Acute) R61 Elevated LDH (Acute) R74.0 CLL (chronic lymphocytic leukemia) (Chronic) C91.10 Seroma after procedure (Acute) NHL (non-Hodgkin's lymphoma) (Chronic) C85.90 Swelling of left hand (Chronic) M79.89 Encounter for education (Acute) Z71.9 Bradycardia (Acute) R00.1 Inguinal hernia (Acute) K40.90 Recurrent right inguinal hernia (Acute) K40.91 Glaucoma H40.9 Hyperlipidemia E78.5 Hypothyroidism E03.9 Seasonal allergies J30.2 Stroke I63.22 NOVEMBER 2018 med port removal Hypertension I10 Allergies No Known Allergies Allergy (Verified 04/13/20 10:56) Home Medications: Ambulatory Orders Medication Instructions Recorded Cholecalciferol (VIT D3) [Vitamin 1,000 unit PO DAILY 03/27/15 D] Latanoprost 1 drp EACH EYE QHS 03/27/15 Levothyroxine [Synthroid] 100 mcg PO DAILY 03/27/15 Losartan Potassium [Cozaar] 100 mg PO QHS 06/02/17 Aspirin [Lite Coat Aspirin] 325 mg PO DAILY 06/14/19 Esomeprazole Mag Trihydrate 20 mg PO DAILY 06/15/19 [Nexium] Pravastatin [Pravachol] 80 mg PO QHS 06/15/19 Carisoprodol [Soma] 350 mg PO 4X/DAY PRN PRN 12/23/19 Mirtazapine [Remeron] 30 mg PO QHS 12/23/19 Venlafaxine HCl [Venlafaxine HCl 150 mg PO DAILY 12/23/19 ER] hydrALAZINE [Apresoline] 100 mg PO BID 12/23/19 Ibrutinib [Imbruvica] 280 mg PO QHS 03/16/20 Cyanocobalamin (Vitamin B-12) 1,000 mcg PO DAILY 04/06/20 [Vitamin B-12] Surgical History: Surgical History (Last Reviewed 04/13/20 @ 10:56 by Milena Stratton) BILATERAL SHOULDER SURGERY H/O cataract extraction Z98.49 History of back surgery Z98.890 History of bilateral inguinal hernia repair Z98.890, Z87.19 History of surgical procedure on eye proper using laser Z98.890 Hx of tonsillectomy Z98.890, Z90.89 S/P cardiac catheterization Z98.890 Status post glaucoma surgery Z98.83 s/p axillary lymph node biopsy 06/17/19 Surgical History: no surgical history Smoking Status: Never smoker Review of Systems Constitutional: Denies: Chills, Fever, Weight Change HEENT: Denies: Head Aches, Sinus Congestion, Sinus Drainage Cardiovascular: Denies: Chest Pain, Palpitations Respiratory: Denies: Cough, Shortness of breath at rest, Sputum production Gastrointestinal: Denies: Abdominal Pain, Nausea, Vomiting Genitourinary: Denies: Dysuria Musculoskeletal: Denies: Joint Pain, Joint Tenderness Skin: Denies: Rash, Wounds Neurological: Denies: Numbness, Tingling, Focal weakness Psychiatric: Denies: Anxiety, Depression, Homicidal Ideations, Suicidal Ideations Hematologic/ Lymphatic: Denies: Easy Bruising, Easy Bleeding VTE Information - Inpt Only VTE Present on Admission: No VTE Mechan Device Prophylaxis: SCD's - Physical Exam Vitals/I&O's: Vital Signs Temp Pulse Resp BP Pulse Ox 97.7 F L 91 16 150/74 H 98 04/14/20 09:51 04/14/20 09:51 04/14/20 09:51 04/14/20 09:51 04/14/20 09:51 Oxygen Delivery Method Room Air Weight: 91.5 kg Body Mass Index (BMI) 27.3 General: Alert, Oriented x3, Cooperative HEENT: Atraumatic, PERRLA, EOMI, Normocephalic Neck: Supple, No JVD, Negative Carotid Bruits Lungs: Clear to auscultation, Normal air movement Cardiovascular: Regular rate, No murmurs Abdomen: Bowel Sounds Present, Soft, Non Tender Extremities: No edema, Capillary Refill Less than 3 Seconds Skin: No rashes, No breakdown Musculoskeletal: No Tenderness to Palpation of Joints or Extremities Neurological: Cranial nerves II-XII grossly intact Psych/Mental Status: Normal Affect, Appropriate Current Medications Lactated Ringer's () 1,000 mls @ 100 mls/hr IV .Q10H KARON Last Admin: 04/14/20 10:10 Dose: 100 mls/hr Documented by: Assessment/Plan All Active Problems (Last Reviewed 04/13/20 @ 10:56 by Milena Stratton) Hydrocele (Acute) Axillary adenopathy (Acute) Night sweats (Acute) Elevated LDH (Acute) Seroma after procedure (Acute) Encounter for education (Acute) Bradycardia (Acute) Inguinal hernia (Acute) Recurrent right inguinal hernia (Acute) Plan to proceed with repair of communicating hydrocele in the right groin.
--- NOTE | 2020-04-14 10:33 | DCINST_ITS ---
Discharge Diet: Light diet - advance as tolerated Discharge Activity: May not drive while taking narcotic pain medications. Call your doctor if your incision/area has: Continuous Slow Oozing, Sudden Increased Bleeding, Increased Pain/ Swelling, Increased Redness, Foul Smelling Discharge, Swelling at the incision site Suture Line Care: Avoid Pulling/Pushing, Avoid Pinching/Bending Drain: Suction Additional Instructions: HIRAL drain to bulb suction Allergies/Adverse Reactions: Allergies No Known Allergies Allergy (Verified 04/13/20 10:56) Medications to take at Discharge Cholecalciferol (VIT D3) [Vitamin D] 1,000 unit PO DAILY 03/27/15 Latanoprost 1 drp EACH EYE QHS 03/27/15 Levothyroxine [Synthroid] 100 mcg PO DAILY 03/27/15 Losartan Potassium [Cozaar] 100 mg PO QHS 06/02/17 Aspirin [Lite Coat Aspirin] 325 mg PO DAILY 06/14/19 Esomeprazole Mag Trihydrate [Nexium] 20 mg PO DAILY 06/15/19 Pravastatin [Pravachol] 80 mg PO QHS 06/15/19 Carisoprodol [Soma] 350 mg PO 4X/DAY PRN PRN 12/23/19 Mirtazapine [Remeron] 30 mg PO QHS 12/23/19 Venlafaxine HCl [Venlafaxine HCl ER] 150 mg PO DAILY 12/23/19 hydrALAZINE [Apresoline] 100 mg PO BID 12/23/19 Ibrutinib [Imbruvica] 280 mg PO QHS 03/16/20 Cyanocobalamin (Vitamin B-12) [Vitamin B-12] 1,000 mcg PO DAILY 04/06/20 Cephalexin [Keflex] 500 mg PO Q8 #20 cap 04/14/20 Hydrocodone/Acetaminophen [[place] 5-325 Tablet] 1 ea PO Q6H PRN PRN 5 Days tab 04/14/20 The following prescriptions were given: Cephalexin [Keflex] 500 mg PO Q8 #20 cap Transmission Status: Pending to [facility]/pharmacy #[id number] Hydrocodone/Acetaminophen [[place] 5-325 Tablet] 1 ea PO Q6H PRN PRN 5 Days tab PRN Reason: Pain 1-10 Or Fever Prescription Printed Primary Care Physician: Baldo Lanier DO [Primary Care Provider] - Test Results: Test results from this visit will be discussed in further detail at your follow- up appointment, if applicable. Please Follow Up With: Christ Palomo MD - [phone] When: please call to make an appointment- next to d/c drain
[2020-04-14] MEDS: Cefazolin 2 GM in 0.9% Normal Saline 100 ML IV (10:51)
--- NOTE | 2020-04-14 12:02 | PCM.OPRPT ---
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 Description of Surgical Findings:: 75-year-old male who I saw in the office as a referral from general surgery for a hydrocele on CAT scan he did have a fluid collection in the right inguinal area he had an episode of severe pain and was in emergency room and he had a large bulge in the groin which could not be reduced. CAT scan demonstrated a fluid collection in the groin suspected that he had a communicating hydrocele so decided take the patient to the operating room to remove the communicating hydrocele. Patient was taken back to the operating room at the smooth induction of general anesthesia he was placed upon the table the right groin was shaved prepped and draped in usual sterile fashion I first made a small 3 cm incision over the right inguinal canal identified the spermatic cord and then as I was dissecting down could feel a fat hard area I did open up the incision little bit more and as I kept on dissecting down what appeared to be a fluid pocket actually turned out to be an incarcerated strangulation of a fat hernia through a very tight direct inguinal hernia at this point I called general surgery who came and inspected and general surgery then proceeded with repair of a recurrent incarcerated hernia. I assisted the general surgery with the retraction but he did the repair of the hernia please see his dictation for details in this. At the end of the case we made sure that the spermatic cord was all intact was laid back into the appropriate position within the inguinal canal and then the incision was closed in 2 layers by general surgery please see the report for full details. The end of the case the testicle was viable very healthy back in normal position of the scrotum. Type of Anesthesia:: General - Admit VTE Documentation VTE Present on Admission: No VTE Mechan Device Prophylaxis: SCD's
--- NOTE | 2020-04-14 13:19 | DCINST_ITS ---
Discharge Diet: Light diet - advance as tolerated Discharge Activity: May not drive while taking narcotic pain medications. Lifting Restrictions: 20 pounds for 8 weeks. Additional Activity Instructions:: Climbing stairs is fine, walking is encouraged. Sitting in bed may be uncomfortable. Sitting up using your lateral muscles (sitting up sideways) is usually more comfortable. Do not drive, work heavy equipment of sign legal documents for 24 hours. If your hernia repair was an ingunial repair, you may have scrotal swelling, an ice pack and/or athletic support can provide more comfort. Pain medications may cause nausea, you should typically eat light foods as you take your pain medications. Pain medications may also cause constipation. If you have difficulty with this, discuss with your doctor. Call your doctor if your incision/area has: Continuous Slow Oozing, Sudden Increased Bleeding, Increased Pain/ Swelling, Increased Redness, Foul Smelling Discharge, Swelling at the incision site Call your doctor if you observe: Fever of 101 or Higher Suture Line Care: Avoid Pulling/Pushing, Avoid Pinching/Bending Drain: Suction Additional Dressing/Incision Instructions:: Leave the operative bandage on for 2-3 days. When you remove the bandage, leave the steri-strips on place until your follow up appointment or they fall off. Additional Instructions: HIRAL drain to bulb suction Allergies/Adverse Reactions: Allergies No Known Allergies Allergy (Verified 04/13/20 10:56) Medications to take at Discharge Cholecalciferol (VIT D3) [Vitamin D] 1,000 unit PO DAILY 03/27/15 Latanoprost 1 drp EACH EYE QHS 03/27/15 Levothyroxine [Synthroid] 100 mcg PO DAILY 03/27/15 Losartan Potassium [Cozaar] 100 mg PO QHS 06/02/17 Aspirin [Lite Coat Aspirin] 325 mg PO DAILY 06/14/19 Esomeprazole Mag Trihydrate [Nexium] 20 mg PO DAILY 06/15/19 Pravastatin [Pravachol] 80 mg PO QHS 06/15/19 Carisoprodol [Soma] 350 mg PO 4X/DAY PRN PRN 12/23/19 Mirtazapine [Remeron] 30 mg PO QHS 12/23/19 Venlafaxine HCl [Venlafaxine HCl ER] 150 mg PO DAILY 12/23/19 hydrALAZINE [Apresoline] 100 mg PO BID 12/23/19 Ibrutinib [Imbruvica] 280 mg PO QHS 03/16/20 Cyanocobalamin (Vitamin B-12) [Vitamin B-12] 1,000 mcg PO DAILY 04/06/20 Cephalexin [Keflex] 500 mg PO Q8 #20 cap 04/14/20 Hydrocodone/Acetaminophen [[place] 5-325 Tablet] 1 ea PO Q6H PRN PRN 5 Days tab 04/14/20 Oxycodone HCl/Acetaminophen [Percocet 5/325] 1 - 2 tablet PO Q4H PRN PRN #30 tablet 04/14/20 The following prescriptions were given: Cephalexin [Keflex] 500 mg PO Q8 #20 cap Transmission Status: Received by [facility]/pharmacy #[id number] Hydrocodone/Acetaminophen [[place] 5-325 Tablet] 1 ea PO Q6H PRN PRN 5 Days tab PRN Reason: Pain 1-10 Or Fever Prescription Printed Oxycodone HCl/Acetaminophen [Percocet 5/325] 1 - 2 tablet PO Q4H PRN PRN #30 tablet PRN Reason: Pain Transmission Status: Received by [facility]/pharmacy #[id number] Primary Care Physician: Baldo Lanier DO [Primary Care Provider] - Test Results: Test results from this visit will be discussed in further detail at your follow- up appointment, if applicable. Please Follow Up With: Eliza Fontaine, CAROLC - [phone] When: Plan to have a follow up appointment in 7 days. Call to schedule.
--- NOTE | 2020-04-14 13:20 | PCM.OPRPT ---
Problem List (1) Incarcerated inguinal hernia, unilateral Status: Acute Report of Operation Date of Procedure: 04/14/20 Pre-Operative Diagnosis: Incarcerated left inguinal hernia Post-Operative Diagnosis: Same Surgery/Procedure Performed:: Incarcerated inguinal hernia with mesh plug Type of Anesthesia:: General Description of Procedure: I had originally seen Sepideh in my office with a CAT scan suggested that there was a hydrocele and I sent him to Dr. Palomo for surgery. Dr. Aguayo had done the initial dissection dissected down and identified an incarcerated preperitoneal fat hernia. He called me in for evaluation and treatment. Identified the hernia he had already secured the cord and vessel structures with a Denise drain I lengthened the incision in a cephalad direction and was able to dissect down to the external oblique there was a significant amount of scarring in here from the previous surgery. Patient had mesh but it was not in a standard gonzalez ring fashion that high have been used to. Dr. Ragland had repaired this many years ago in [place]. I unfortunately did not have access to his operative report prior to coming down to the OR. This mesh appeared to be attached to the pubic tubercle and extended laterally To the external oblique fascia. We initially dissected he had a very small defect that was felt and we were unable to push this back into its preperitoneal space. I opened the mesh and we were easily able to push this hernia back into its preperitoneal space. I dissected some cremasteric muscles free with the electrocautery. I felt the safest thing to do was dissect the surrounding fascia free with electrocautery. I then placed a medium mesh plug into this defect and sutured it to surrounding fascia it covered the area quite nicely. I used 0 Prolene for the sutures. When this was completed I brought the mesh back together using a running 0 Prolene. When I was completed I could only get my fifth digit into the area and since I use the mesh plug I was confident that this would scar in and not allow any other hernias to come back through. We had very little bleeding with this procedure. And I was confident that the blood supply to the cord and vessel structures was intact. Dr. Palomo also made sure that the cord and vessel structures were intact and placed the testicle back into the scrotum. I brought the wound together with subcu of 2-0 Vicryl's. Deep dermal stitches of 3-0 Vicryl's. Then a running 4-0 Monocryl. Local was injected. Steri-Strips were applied sterile dressings were applied and the patient tolerated the procedure well. - Admit VTE Documentation VTE Present on Admission: No VTE Mechan Device Prophylaxis: SCD's VTE Pharm Prophylaxis ordered?: No Reason prophylaxis not ordered:: Treatment Not Indicated [id number]: Other Procedure See Notes - [id number] repair of a recurrent incarcerated inguinal hernia
== END 2020-04-14 15:22 | disposition home or self-care (01) ==
LOC: SDC 09:27 → AC 09:27
PROVIDERS: Anesthesiology; Surgery; PCP Preventive Medicine Occupational Medicine; Referring Provider Urology; Visit Provider Urology
PROC: (CPT 49521; 2020-04-14 11:05)
DX: K40.31 Unilateral inguinal hernia, with obstruction, without gangrene, recurrent (principal); C91.10 Chronic lymphocytic leukemia of B-cell type not having achieved remission; N43.0 Encysted hydrocele; Z79.899 Other long term (current) drug therapy; Z79.82 Long term (current) use of aspirin; E78.5 Hyperlipidemia, unspecified; E03.9 Hypothyroidism, unspecified; Z85.72 Personal history of non-Hodgkin lymphomas; I10 Essential (primary) hypertension
CPT/HCPCS: 00830; 49521; 87635; C9803; J7120; C1781; J2405; U0003

== ENCOUNTER 2020-08-22 11:10 | Outpatient (RCR) | payer MEDICARE, OTHER, SELFPAY ==
[2020-07-13 11:10] VITALS: BMI 29.0
[2020-08-22] MEDS: COVID-19 VACC, MRNA(PFIZER)/PF 30 MCG/0.3 ML SYRINGE IM (16:06)
[2020-09-12] MEDS: COVID-19 VACC, MRNA(PFIZER)/PF 30 MCG/0.3 ML SYRINGE IM (16:09)
== END 2020-11-21 23:59 ==
LOC: IMMUN 11:10
PROVIDERS: PCP Preventive Medicine Occupational Medicine; Referring Provider Family Medicine; Visit Provider Family Medicine
DX: Z23 Encounter for immunization (principal)
CPT/HCPCS: 0001A; 0002A; 91300

== ENCOUNTER → 2020-09-22 15:56 | Outpatient (CLI) | payer MEDICARE, OTHER, SELFPAY ==
[2020-09-07 10:39] VITALS: BMI 28.9
== END ==
PROVIDERS: PCP Preventive Medicine Occupational Medicine; Referring Provider Internal Medicine Gastroenterology; Visit Provider Internal Medicine Gastroenterology
DX: Z11.59 Encounter for screening for other viral diseases (principal)
CPT/HCPCS: 87635; C9803; U0002

== ENCOUNTER 2021-08-23 00:13 | Inpatient (IN) | payer MEDICARE, OTHER, SELFPAY ==
[2021-08-23] VITALS (7 sets, daily range): BP systolic 106–161; BP diastolic 51–84; PULSE 63–80; RESP 16–18; TEMP 36.6–37.2; O2SAT 94–96; BMI 27.8
--- NOTE | 2021-08-23 00:38 | HP.PCM.HOS_ITS ---
HPI - General General Date of Admission: 08/23/21 Date of Service: 08/23/21 Chief Complaint: Abdominal pain. HPI Narrative The patient is a 76 y/o M w/ PMHx: Anxiety and Depression, Hx CVA, HTN, HLD, Hypothyroidism, Hx NH Lymphoma, CLL following w/ Dr. Roca with most recent evaluation noted 08/07/2021 with reported ongoing treatments with ibrutinib which was started 09/29/2019 secondary to doubled lymphocytes over 3 months following left hand and wrist swelling with scapholunate ligament injury with following start of this medication complete hematological remission with transition 10/2019 140 mg daily steadily decreasing the dose who presents to the [facility] on 08/23/21 as direction admission from [facility] ED secondary to abdominal pain, ongoing 1-2 days, worsened over the last several house prior to OSH ED arrival, primarily RLQ, sharp pain which radiates rated 5-6/10 in severity, through to the back similar to a prior inguinal hernia pain with no fever but chills with diarrhea (>10 episodes on day of presentation) with no nausea or emesis. He notes upon [facility] presentation that pain improved with OSH ED morphine administration, currently pain 4/10. Vital signs: T 36.9, HR 71, RR 20, BP 165/81, 96% on RA CBC: WBC 13.9, Hgb 12.9, Plts 184 with mildly elevated abs neut CMP: Glucose 104, Na 139, K 3.4, Chl 100, CO2 24, BUn/Cr 19/1.02, hepatic profile unremarkable Lipase: 86 LA: 1.8 EKG with SR, low voltage T waves, prolonged QT 598--> mag pending, no arrythmia on telemetry (tender around burise on chest) CT abdomen and pelvis with IV contrast: Widespread lymphoproliferative disease with wall thickening cecum and free fluid tracking along the R pericolic gutter concerning for typhlitis with no evidence of perforation. Treatment at OSH ED: IV zosyn, morphine, zofran, 1L NS. [facility], [facility] Medical History (Updated 08/23/21 @ 00:[address] Kait Reeves MD) Axillary adenopathy Bradycardia CLL (chronic lymphocytic leukemia) Elevated LDH Encounter for education Glaucoma History of non-Hodgkin's lymphoma Hyperlipidemia Hypertension Hypothyroidism Inguinal hernia med port removal NHL (non-Hodgkin's lymphoma) Night sweats Recurrent right inguinal hernia Seasonal allergies Seroma after procedure Stroke Swelling of left hand Home Medications latanoprost 1 drp EACH EYE QHS 03/27/15 [History Last Taken Unknown] levothyroxine 100 mcg PO DAILY 03/27/15 [History Last Taken 04/14/20 08:30 100 MCG] losartan 100 mg PO QHS 06/02/17 [History Last Taken Unknown] esomeprazole magnesium 20 mg PO DAILY 06/15/19 [History Last Taken 04/14/20 08:30 20 MG] pravastatin 80 mg PO QHS 06/15/19 [History Last Taken Unknown] carisoprodol 350 mg PO 4X/DAY PRN PRN 12/23/19 [History Last Taken Unknown] hydralazine 100 mg PO BID 12/23/19 [History Last Taken 04/14/20 08:30 100 MG] mirtazapine 30 mg PO QHS 12/23/19 [History Last Taken Unknown] venlafaxine 150 mg PO DAILY 12/23/19 [History Last Taken Unknown] tzckqdtrplis-qvz-rung-FA-vit K 1 each PO DAILY 09/07/20 [History Last Taken Unknown] aspirin 81 mg chewable tablet 81 mg PO DAILY 11/02/20 [History Last Taken Unknown] pantoprazole 40 mg tablet,delayed release 40 mg PO DAILY 11/02/20 [History Last Taken Unknown] apple cider vinegar 300 mg tablet 500 mg PO DAILY tab 03/01/21 [History Last Taken Unknown] biotin 5,000 mcg disintegrating tablet 10,000 mcg PO DAILY 03/01/21 [History Last Taken Unknown] finasteride 5 mg tablet tablet PO 06/21/21 [History Last Taken Unknown] ibrutinib 140 mg PO DAILY 08/23/21 [History Last Taken 08/19/21] Allergy/AdvReac Type Severity Reaction Status Date / Time No Known Allergies Allergy Verified 08/07/21 13:00 Family History Mother Arthritis Hypertension Heart disease Father Hypertension Hyperlipidemia Heart disease Arthritis Sister Colon cancer Uncle Diabetes Surgical History BILATERAL SHOULDER SURGERY H/O cataract extraction History of back surgery History of bilateral inguinal hernia repair History of surgical procedure on eye proper using laser Hx of right inguinal hernia repair Hx of tonsillectomy s/p axillary lymph node biopsy S/P cardiac catheterization Status post glaucoma surgery Social History (Updated 08/23/21 @ 00:[address] Kait Reeves MD) household members: spouse Smoking Status: Never smoker alcohol intake: current alcohol intake frequency: a few times a month substance use type: does not use ROS ROS Narrative Admission Review of Systems: CONSTITUTIONAL: No weight loss, fever, + chills, weakness or fatigue. HEENT: Eyes: No visual loss, blurred vision, double vision or yellow sclerae. Ears, Nose, Throat: No hearing loss, sneezing, congestion, runny nose or sore throat. SKIN: No rash or itching, lesions, wounds. CARDIOVASCULAR: No chest pain, chest pressure or chest discomfort, palpitations, edema, orthopnea, syncopal events. RESPIRATORY: No shortness of breath, cough or sputum, wheezing, hemoptysis. GASTROINTESTINAL: + anorexia, abdominal pain, diarrhea, No nausea, vomiting, melena, BRBPR. GENITOURINARY: No dysuria, frequency, urgency or retention. NEUROLOGICAL: No headache, dizziness, syncope, paralysis, ataxia, numbness or tingling in the extremities, focal weakness, change in bowel or bladder control, seizure. MUSCULOSKELETAL: No muscle, back pain, joint pain or stiffness. HEMATOLOGIC: + anemia, bleeding or bruising. LYMPHATICS: No enlarged nodes. No history of splenectomy. PSYCHIATRIC: + history of depression or anxiety. ENDOCRINOLOGIC: No reports of sweating, cold or heat intolerance. No polyuria or polydipsia. ALLERGIES: No history of asthma, hives, eczema or rhinitis. Physical Exam Narrative Physical Examination: General: Awake, alert, oriented x 3 and cooperative, seated upright in the PCU bed in no apparent distress, notes pain improved, currently 4-5 out of 10. Skin: Normal color, normal turgor, no icterus, no cyanosis. HEENT: AT/NC, EOMI, PERRLA, mildly dry MM, no carotid bruits or JVD noted. Lungs: Mildly diminished bases, moderate effort, no rales, ronchi or wheezing. Heart: Currently regular rate and rhythm; no gallop, rub audible. Abdomen: Soft, still some residual right sided lower quadrant discomfort but no rebound or guarding, notes improved since outside hospital treatment with morphine, no obvious distention, mildly hyperactive bowel sounds, no obvious HSM. Extremities: No cyanosis, clubbing, or edema. Neurological: Patient awake, alert, oriented x 3, cognitive function intact; pupils equally reactive to light and accommodation, cranial nerves II-XII grossly normal, moving all 4 extremities, no focal deficits, strength mildly to moderately globally Melania secondary to acute pain/presentation Psychiatric: Affect appears fatigued, no acute evidence of depressive or anxiety feelings. Assessment & Plan Assessment/Plan (1) Typhlitis: PLAN: The patient is a 76 y/o M w/ PMHx: Anxiety and Depression, Hx CVA, HTN, HLD, Hypothyroidism, Hx NH Lymphoma, CLL following w/ Dr. Roca with most recent evaluation noted 08/07/2021 with reported ongoing treatments with ibrutinib who presents to the [facility] on 08/23/21 as direction admission from [facility] ED secondary to abdominal pain, ongoing x 2 days, worsened over the last several house prior to OSH ED arrival, primarily RLQ, sharp pain which radiates through to the back. #1. Acute ? typhlitis: CT A/P w/ widespread lymphoproliferative disease with wall thickening cecum and free fluid tracking along the R pericolic gutter concerning for typhlitis with no evidence of perforation with CBC at outside facility with WBC 13.9 with mildly elevated absolute neutrophil count so not neutropenic of note. Will admit to medical surgical floor, maintain on aggressive hydration, monitor I&Os, maintain NPO status w/ bowel rest, treat with BSA with Zosyn, IV PPI, anti-emetics, pain regimen PRN. #2. CLL, Hx NH Lymphoma: Patient following w/ Dr. Roca with most recent evaluation noted 08/07/2021 with reported ongoing treatments with ibrutinib which was started 09/29/2019 secondary to doubled lymphocytes over 3 months. Following left hand and wrist swelling with scapholunate ligament injury with following start of this medication complete hematological remission with transition 10/2019 1 to 140 mg daily steadily decreasing the dose. Mag, Phos pending. OSH did discuss case with Oncology, given CT findings of widespread lymphoproliferative disease will continue consultation request. #3. Hypertension: Continue home regimen including hydralazine, losartan with hold parameters as needed, PRN hydralazine. #4. Hyperlipidemia: We will continue patient on statin therapy. #5. Hypothyroidism: We will continue patient home levothyroxine regimen. #6. History CVA: We will continue patient aspirin, statin, hypertensive regimen as noted. #7. Anxiety and depression: We will continue patient home venlafaxine and mirtazapine regimen. #8. BPH: We will continue patient home finasteride regimen. #9. GERD: We will maintain on IV PPI. #10. DVT prophylaxis: SCDs, lovenox. Charges/Coding Visit Charges Inpatient E&M: 57749 Init Hosp L3
[2021-08-23] MEDS: 0.9% Normal Saline 1,000 ML 125 ML IV ×3 (00:59→17:44)
[2021-08-23 04:35] LABS: Hematocrit 37.9 % (40-54); Hemoglobin 12.6 g/dL (13.0-16.5); Mean Corp Hgb Conc 33.2 g/dL (32-36); Mean Corpuscular Hgb 31.1 pg (27.0-32.0); Mean Corpuscular Volume 93.6 fL (80-94); Mean Platelet Vol. 10.1 fl (6.2-12.0); POSITIVE COUNT YES; POSITIVE DIFFERENTIAL YES; POSITIVE MORPHOLOGY YES; Platelet Count 173 K/mm3 (150-450); RBC Distribution Width CV 14.4 % (11.6-14.6); RBC Distribution Width SD 49.1 fl (35.1-43.9); Red Blood Count 4.05 M/mm3 (4.6-6.2); White Blood Count 13.3 K/mm3 (4.4-11.0)
[2021-08-23 04:38] LABS: Differential Indicated MANUAL DIFF
[2021-08-23 04:53] LABS: Absolute Lymphocyte Count 1.07 X10^3/uL (0.83-4.51); Absolute Neutrophil Count 8.3 X10^3/uL (2.0-7.7); Lymphocyte 8 % (19-41); Myelocyte 4 % (0-0); Neutrophil-Band 8 % (0-5); Neutrophil-Segmented 59 % (47-70); Total Cells Counted 100 (MANUAL DIFF)
[2021-08-23 04:54] LABS: Monocyte 26 % (0-10); Platelet Estimate ADEQUATE (ADEQ); Red Cell Morphology NORM C+C NORMAL (NORM C&C)
[2021-08-23 04:56] LABS: Magnesium 1.9 mg/dL (1.6-2.6); Phosphorus 2.5 mg/dL (2.5-4.9)
[2021-08-23 05:04] LABS: ALB/GLOB Ratio 1.2 RATIO (0.9-2.4); AST(SGOT) 40 U/L (15-37); Alanine Aminotransfer ALT/SGPT 32 U/L (16-61); Albumin, Serum 2.9 g/dL (3.2-5.0); Alkaline Phosphatase 93 U/L (45-117); Anion Gap 7 (5-15); BUN 13 mg/dL (7-18); BUN/Creat Ratio 13.6 RATIO (10-20); Calcium,Total 7.5 mg/dL (8.5-10.1); Chloride 110 mmol/L (98-107); Creatinine, Serum 0.96 mg/dL (0.70-1.30); EST Glomerular Filtration Rate 81 mL/min (>60); Est Glom Filt Rate - Afr Amer 98 mL/min (>60); Estimated Creatinine Clearance 72.97 ml/min; Globulin 2.5 g/dL (2.2-4.2); Glucose 108 mg/dL (74-106); Protein, Total 5.4 g/dL (6.4-8.2); Sodium Level 141 mmol/L (136-145)
[2021-08-23] MEDS: oxyCODONE 5 MG Tablet PO ×4 (05:26→20:07)
[2021-08-23] MEDS: Piperacil/Tazobactam 3.375 GM/50 ML ML IV ×3 (05:45→22:41)
[2021-08-23] MEDS: Enoxaparin 40 MG/0.4 ML Syringe SC (08:49)
--- NOTE | 2021-08-23 10:00 | ONC.CONSULT ---
Assessment & Plan Assessment/Plan (1) CLL (chronic lymphocytic leukemia): Status: Chronic Code(s): C91.10 - Chronic lymphocytic leukemia of B-cell type not having achieved remission Plan: Ibrutinib has been on hold x1 week due to interruption of medication co pay assistance (this is being worked through by [facility] patient navigation and prior [facility] nurse staff) Typically, patient tolerates ibrutinib well without complaints. He is advised to remain off ibrutinib temporarily until etiology of abd pain is determined d/t increase risk for hemorrhage. CBC reviewed, it is reassuring that Hgb is stable, abs lymph count stable, no evidence of thrombocytopenia. With the exception of abd pain, he is not endorsing any systemic symptoms concerning for disease progression or transformation. Add LDH to today's labs. CT A/P performed at OSH yesterday, 08/22/2021. That report is not available for me to review however primary team documentation indicates concern was raised for typhlitis and the presence of widespread lymphoproliferative disease. Request disc with images be sent to radiology for internal second read and compared to CT abdomen and pelvis obtained 03/25/2020. If radiology reports progressive lymphadenopathy with comparison or extranodal sites of concern, will recommend PET/CT in the out patient setting and biopsy based on PET findings to exclude Arriaga transformation. (2) Abdominal pain: Status: Acute Code(s): R10.9 - Unspecified abdominal pain Qualifiers: Abdominal location: right lower quadrant Qualified Code(s): R10.31 - Right lower quadrant pain Plan: Acute x 2 days, accompanied by diarrhea with recent use of atb. Stool studies, culture and C. difficile are pending. Case was discussed with Dr. Roca who was in agreement aforementioned plan. Will follow with more suggestions if LDH grossly elevated or based on CT A/P internal read. Otherwise, advised patient to follow up with [facility] 1 to 2 days after discharge. HPI Consult Data Date of Service:: 08/23/21 PCP / Referring Provider: Dr. Baldo Lanier DO Attending: Dr. Ok Nava MD Chief Complaint Chief Complaint: CLL History of Present Illness History of Present Illness: Mr. Luther Roque is a very pleasant 76 year old gentleman with a PMH significant for HTN, HLD, CVA, inguinal hernia and CLL. 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 He is s/p standard dose R [facility] Patient was on surveillance until developed painful left axillary node for which he underwent biopsy on 06/17/2019. Pathology showed Small lymphocytic lymphoma. Flow cytometry on 06/28/2019 showed CLL, CD38 negative. Cytogenetics 06/28/2019 showed 45XY, +12, add17, t(8:15). ZAP70 and CD38 were positive on 07/21/2019. IgVH was done 07/21/2019 showed hypermutated. Lymphocytes doubled within a 3 month period early 2019, thus he initiated therapy with ibrutinib 09/29/19. Experienced complete hematologic response. Dose reduced to 280 mg March 2020 and further to 140 mg daily October 2020. Has remained in remission. He presented to OSH yesterday with c/o RLQ pain and diarrhea x [address] A/P was performed (although that report is unavailable for me to review at this time). Per [facility] records and verbal communication from [facility] ED physician, Dr. Simeon last evening prior to transfer, concern was raised for typhilitis. Thus, transferred with [facility]. Upon entering the room, the patient is lying supine in bed conversing with spouse at the bedside. Confirms he has not taken any ibrutinib in approx 1 week d/t a lapse in co pay assist. States pain involving RLQ is improved today, now rates 5/10. Describes pain as beginning yesterday mid-day. He administered otc dulcolax yesterday morning and subsequently had 6-7 episodes of diarrhea yesterday, with last episode at OSH. He admits bowel habits have been off lately, citing typically he produces a BM every other day. Reports had a day last week in which he produced 5 small BMs, experienced urgency but stool was not loose and the frequency/urgency resolved without intervention. He did complete a 10 day of course of atb to address concerns for sinusitis prescribed by his pcp just 4 days ago. He has been afebrile throughout. He specifically denies chills, sweats, dysphagia, enlarged lymph nodes, CP, SOB, cough, swelling of his extremities and any episodes of bleeding although admits he bruises easily. Advanced Directives Power of Inside Horticultural Specialty Grower: No Living Will: No [facility] Medical History (Updated 08/23/21 @ 11:56 by Melissa Lopez CLAY PIGEON SETTER, CLAY PIGEON SETTER-C) Abdominal pain Axillary adenopathy Bradycardia CLL (chronic lymphocytic leukemia) CLL (chronic lymphocytic leukemia) Elevated LDH Encounter for education Glaucoma History of non-Hodgkin's lymphoma Hyperlipidemia Hypertension Hypothyroidism Inguinal hernia med port removal NHL (non-Hodgkin's lymphoma) Night sweats Recurrent right inguinal hernia Seasonal allergies Seroma after procedure Stroke Swelling of left hand Home Medications latanoprost 1 drp EACH EYE QHS 03/27/15 [History Last Taken Unknown] levothyroxine 100 mcg PO DAILY 03/27/15 [History Last Taken 04/14/20 08:30 100 MCG] losartan 100 mg PO QHS 06/02/17 [History Last Taken Unknown] esomeprazole magnesium 20 mg PO DAILY 06/15/19 [History Last Taken 04/14/20 08:30 20 MG] pravastatin 80 mg PO QHS 06/15/19 [History Last Taken Unknown] carisoprodol 350 mg PO 4X/DAY PRN PRN 12/23/19 [History Last Taken Unknown] hydralazine 100 mg PO BID 12/23/19 [History Last Taken 04/14/20 08:30 100 MG] mirtazapine 30 mg PO QHS 12/23/19 [History Last Taken Unknown] venlafaxine 150 mg PO DAILY 12/23/19 [History Last Taken Unknown] paxikvbvqpad-ayy-xvrn-FA-vit K 1 each PO DAILY 09/07/20 [History Last Taken Unknown] aspirin 81 mg chewable tablet 81 mg PO DAILY 11/02/20 [History Last Taken Unknown] pantoprazole 40 mg tablet,delayed release 40 mg PO DAILY 11/02/20 [History Last Taken Unknown] apple cider vinegar 300 mg tablet 500 mg PO DAILY tab 03/01/21 [History Last Taken Unknown] biotin 5,000 mcg disintegrating tablet 1,000 mcg PO DAILY 03/01/21 [History Last Taken Unknown] finasteride 5 mg tablet 5 tablet PO DAILY 06/21/21 [History Last Taken Unknown] ibrutinib 140 mg PO DAILY 08/23/21 [History Last Taken 08/19/21] Allergy/AdvReac Type Severity Reaction Status Date / Time No Known Allergies Allergy Verified 08/07/21 13:00 Family History Mother Arthritis Hypertension Heart disease Father Hypertension Hyperlipidemia Heart disease Arthritis Sister Colon cancer Uncle Diabetes Surgical History BILATERAL SHOULDER SURGERY H/O cataract extraction History of back surgery History of bilateral inguinal hernia repair History of surgical procedure on eye proper using laser Hx of right inguinal hernia repair Hx of tonsillectomy s/p axillary lymph node biopsy S/P cardiac catheterization Status post glaucoma surgery Social History (Updated 08/23/21 @ 00:[address] Kait Reeves MD) household members: spouse Smoking Status: Never smoker alcohol intake: current alcohol intake frequency: a few times a month substance use type: does not use ROS ROS Narrative Negative except as documented in the interval HPI Physical Exam Const alert, oriented x3 and no apparent distress General Appearance: cooperative and comfortable HEENT normocephalic and head/scalp atraumatic Eyes PERRL, conjunctivae normal and no scleral icterus Neck supple and no JVD General: trachea midline Lymph Lymphatic: no lymphadenopathy noted Chest Chest: symmetrical chest wall rise Resp normal respiratory effort and normal air movement Effort and Inspection: able to speak in complete sentences Auscultation: clear to auscultation bilaterally Cardio regular rate, regular rhythm, S1 normal heart sound and S2 normal heart sound GI soft to palpation and non-distended; Negative for hepatosplenomegaly Auscultation: normoactive bowel sounds Palpation: tender RLQ no CVA tenderness Extremity no clubbing, cyanosis or edema and no calf tenderness Skin no jaundice General Skin Exam: ecchymosis; Negative for petechiae Neuro CN's II-XII intact bilaterally Speech: speech normal Psych cooperative and affect normal Attitude: calm and engaged Vital Signs Temperature 97.9 F 08/23/21 05:27 Temperature Source Oral 08/23/21 05:27 Pulse Rate 66 08/23/21 05:27 Respiratory Rate 16 08/23/21 05:27 Respiratory Effort Non-Labored 08/23/21 08:50 Respiratory Depth Normal 08/23/21 00:20 Respiratory Pattern Normal 08/23/21 00:20 Blood Pressure 132/75 H 08/23/21 05:27 Blood Pressure Mean 94 08/23/21 05:27 Blood Pressure Source Monitor 08/23/21 05:27 Blood Pressure Position Sitting 08/23/21 05:27 Blood Pressure Location Left Arm 08/23/21 05:27 Pulse Ox 96 08/23/21 05:27 Oxygen Delivery Method Room Air 08/23/21 08:50 Laboratory Results - last 24 hr 08/23/21 04:30: Phosphorus 2.5, Magnesium 1.9 08/23/21 04:30: WBC 13.3 H, RBC 4.05 L, Hgb 12.6 L, Hct 37.9 L, MCV 93.6, MCH 31.1, MCHC 33.2, RDW Std Deviation 49.1 H, RDW Coeff of Deborah 14.4, Plt Count 173, MPV 10.1, Neut % (Auto) Not Reportable, Absolute Neuts (auto) 8.3 H, Absolute Lymphs (auto) 1.07, Total Counted 100, Neutrophils % (Manual) 59, Band Neutrophils % 8 H, Lymphocytes % (Manual) 8 L, Monocytes % (Manual) 26 H, Myelocytes % 4 H, Diff Path Review May foll, Platelet Estimate ADEQUATE, RBC Morphology NORM C+C 08/23/21 04:30: Sodium 141, Potassium 4.0, Chloride 110 H, Carbon Dioxide 24.0, Anion Gap 7, BUN 13, Creatinine 0.96, Estim Creat Clear Calc 72.97, Est GFR (MDRD) Af Amer 98, Est GFR (MDRD) Non-Af 81, BUN/Creatinine Ratio 13.6, Glucose 108 H, Calcium 7.5 L, Total Bilirubin 0.40, AST 40 H, ALT 32, Alkaline Phosphatase 93, Total Protein 5.4 L, Albumin 2.9 L, Globulin 2.5, Albumin/Globulin Ratio 1.2
--- NOTE | 2021-08-23 10:30 | CASEMGMT ---
RN CM Face to Face with patient for initial transition planning/care coordination assessment. RN CM introduced self and role at [facility]. Patient lying in bed, alert and oriented, at bedside. Patient willing to participate in assessment and is able to answer all questions appropriately. Care providers, pharmacy, and demographics verified. Patient wishes to discharge home, denies need for home health at this time. Patient states he has no further needs or concerns at this time. CM to follow for discharge planning needs that may arise. PCP: Yolande Specialists: Chanelle, oncologist; Dewey, urologist; Tomy, cloth spreader; Mae GI; Zi PROFESSIONAL APPLICATION DESIGNER, packaging associate; Preferred Pharmacy: [facility] Insurance: [facility] [place] Prescription Benefit: yes Living Will/HPOA: none LNOK: Living Arrangements: Patient lives with in a 1.5 story home with bed and bath on 1st floor. Patient is independent at home. Transportation: self, DME/HHC: Patient states he has raised toilet, cane, walker, and grab bars at home. No previous HHC or SNF. Disposition Plan: Patient to discharge home with family support and follow-up plans in place. Gillian VEGA, RN, CM
--- NOTE | 2021-08-23 11:59 | PCM.PN.HOSP ---
Documented by User: Gaby Ashford CIVIL GEOTECHNICAL ENGINEER, CIVIL GEOTECHNICAL ENGINEER-C 08/23/21 12:13 Subjective Subjective Patient seen and examined. Reports ongoing abdominal pain. Denies nausea, vomiting. Denies further diarrhea. States he was on antibiotics recently and stopped 2 days prior to admission. Objective Data Objective Data Vital Signs: Vital Signs Temp Pulse Resp BP Pulse Ox 98.4 F 68 18 129/54 H 94 08/23/21 11:45 08/23/21 11:45 08/23/21 11:45 08/23/21 11:45 08/23/21 11:45 Oxygen Delivery Method Room Air Weight: 205 lb 4.006 oz Body Mass Index (BMI) 27.8 Intake & Output: Intake and Output for Last 24 Hours 08/21/21 08/22/21 08/23/21 23:59 23:59 23:59 Intake Total 1350 / 1350 Balance 1350 / 1350 Lab / Micro Data Result Diagrams: 08/23/21 04:30 08/23/21 04:30 Labs: Laboratory Results - last 24 hr 08/23/21 04:30: Phosphorus 2.5, Magnesium 1.9 08/23/21 04:30: WBC 13.3 H, RBC 4.05 L, Hgb 12.6 L, Hct 37.9 L, MCV 93.6, MCH 31.1, MCHC 33.2, RDW Std Deviation 49.1 H, RDW Coeff of Deborah 14.4, Plt Count 173, MPV 10.1, Neut % (Auto) Not Reportable, Absolute Neuts (auto) 8.3 H, Absolute Lymphs (auto) 1.07, Total Counted 100, Neutrophils % (Manual) 59, Band Neutrophils % 8 H, Lymphocytes % (Manual) 8 L, Monocytes % (Manual) 26 H, Myelocytes % 4 H, Diff Path Review October, Platelet Estimate ADEQUATE, RBC Morphology NORM C+C 08/23/21 04:30: Sodium 141, Potassium 4.0, Chloride 110 H, Carbon Dioxide 24.0, Anion Gap 7, BUN 13, Creatinine 0.96, Estim Creat Clear Calc 72.97, Est GFR (MDRD) Af Amer 98, Est GFR (MDRD) Non-Af 81, BUN/Creatinine Ratio 13.6, Glucose 108 H, Calcium 7.5 L, Total Bilirubin 0.40, AST 40 H, ALT 32, Alkaline Phosphatase 93, Total Protein 5.4 L, Albumin 2.9 L, Globulin 2.5, Albumin/Globulin Ratio 1.2 Physical Exam Const alert, oriented x3 and no apparent distress Orientation / Consciousness: awake, oriented to person, oriented to place and oriented to time HEENT normocephalic and moist oral mucous membranes Eyes PERRL, EOMs intact bilaterally and conjunctivae normal Neck no lymphadenopathy Resp normal respiratory effort and clear to auscultation bilaterally Cardio regular rate, regular rhythm and no murmurs Peripheral Pulses: pulses 2+ throughout GI normal to inspection, nondistended, normoactive bowel sounds, non-tender and non-distended Extremity normal to inspection Skin no rashes or lesions noted Lesions: no lesions Rashes: no rashes Trauma: no lacerations or abrasions Neuro CN's II-XII intact bilaterally, no focal motor deficits, no sensory deficits noted and deep tendon reflexes 2+ bilaterally Psych mental status grossly normal and affect normal A/P Addt'l Comments Addt'l Comments 1. Suspected acute typhlitis-CT of abdomen pelvis with widespread lymphoproliferative disease with wall thickening of cecum and free fluid tracking along the right pericolic gutter concerning for typhlitis. Oncology consulted. On IV PPI and IV Zosyn empirically. Per oncology, plan to have CT read by internal radiology. If radiology reports progressive lymphadenopathy compared to prior study, will need further outpatient evaluation including PET/biopsy. As needed pain regimen. As needed antiemetics. 2. CLL, history of non-Hodgkin's lymphoma- follows with Dr. Roca. Oncology consulted as noted above. 3. Hypertension-continue home regimen including hydralazine, losartan. 4. Hyperlipidemia-continue statin. 5. Hypothyroidism-continue Synthroid regimen. 6. History of CVA-continue aspirin, statin. 7. Anxiety/depression-on venlafaxine, mirtazapine. 8. BPH- on finasteride. 9. GERD-PPI. DVT prophylaxis-Lovenox This patient was seen by BILLY Gorman under the supervision of Dr. Nava. Documented by User: Dr. Ok Nava MD 08/23/21 13:34 Objective Data Lab / Micro Data Result Diagrams: 08/23/21 04:30 08/23/21 04:30 Charges/Coding Visit Charges Inpatient E&M: 28347 Subs Hosp L3 A/P Addt'l Comments Addt'l Comments This patient was seen in conjunction with BILLY Gorman . I have independently interviewed and examined the patient and reviewed pertinent historical, laboratory, and other data. Please refer to BILLY Gorman note for details of this patient's presentation, findings, and recommendations. I have reviewed BILLY Gorman note and concur with documented findings. In brief, patient is a 36-year-old gentleman with a history of chronic lymphocytic leukemia of B-cell type who was admitted with abdominal pain. CT obtained demonstrated widespread lymphoproliferative disease with wall thickening involving the cecum and free fluid tracking along the right paracolic gutter concerning for typhlitis with no evidence of perforation. Antibiotics initiated per protocol patient admitted to regular nursing floor for further management Physical Examination: GENERAL: cooperative HEENT: Atraumatic; EYES; Anicteric, Normal Conjunctiva NECK; supple, normal thyroid, RESPIRATORY: Diminished to auscultation CARDIOVASCULAR: Regular S1 S2, GI: soft, normoactive bowel sounds, : No Renal angle tenderness; EXTREMITIES: No edema, no clubbing, MUSCULOSKELETAL: no muscle wasting NEURO: Awake; no lateralizing signs. SKIN: No Rash PSYCH; Flat affect Assessment: 1. Acute typhlitis 2. Chronic lymphocytic leukemia of B-cell type 3. History of non-Hodgkin's lymphoma 4. Essential hypertension 5. Dyslipidemia 6. Hypothyroidism 7. History of previous CVA with no residual effect 8. Depression with anxiety 9. BPH 10. DVT prophylaxis next Recommendations: 1. I have discussed the results of my overview and impressions with the patient 2. Options for management were reviewed Total time spent by myself and the advanced practice practitioner evaluating patient, reviewing labs, subsequent management decisions, discussion with patient as well as other providers 40 minutes ( 25 of which was spent by myself)
[2021-08-23 12:48] LABS: Pathologist Review Reviewed
[2021-08-23 13:03] LABS: LDH 380 U/L (87-241)
--- NOTE | 2021-08-23 14:06 | CHAPLAIN ---
Type of Pastoral Visit _x__ Initial Visit ___ Follow-up Visit ___ On-call Visit ___ General Patient Visit ___ Spiritual Assessment ___ Family Conference ___ Bereavement ___ Rapid Response ___ Code Blue ___ Other (describe below) Pastoral Care Referral From _x__ Patient ___ Family ___ Nurse ___ Physician ___ General Scrap Worker ___ Financial Advisor ___ Other (describe below) Sacrament/Intervention _x__ Active listening ___ Anointing ___ Religious ___ Bereavement ___ Communion ___ Anjelica exploration ___ _x__ Life review _x__ Prayer ___ Reconciliation ___ Sacrament of Sick __x_ Supportive presence ___ Wedding ___ Other (describe below) Pastoral Comments patient and spouse in room; pt admits to some discomfort and lack of sleep since this episode started; pt is a cancer patient undergoing treatment; life review and anjelica connection is explored; pt has managed cancer for several years and has been doing his best through it; spouse is evidently very supportive; pt welcomes prayer; pt has local gnosticism connection for support too
[2021-08-23] MEDS: hydrALAZINE 50 MG Tablet 100 MG PO (17:44)
[2021-08-23] MEDS: Pravastatin 80 MG Tablet PO (22:36)
[2021-08-23] MEDS: Mirtazapine 30 MG Tablet PO (22:36)
[2021-08-23] MEDS: Losartan Potassium 100 MG Tablet PO (22:37)
[2021-08-24] MEDS: 0.9% Normal Saline 1,000 ML 125 ML IV ×2 (02:11→08:59)
[2021-08-24 04:30] VITALS: BP 157/78; PULSE 73; RESP 18; TEMP 36.7; O2SAT 96
[2021-08-24 05:09] LABS: Hematocrit 35.7 % (40-54); Hemoglobin 11.6 g/dL (13.0-16.5); Mean Corp Hgb Conc 32.5 g/dL (32-36); Mean Corpuscular Hgb 30.9 pg (27.0-32.0); Mean Corpuscular Volume 94.9 fL (80-94); Mean Platelet Vol. 10.6 fl (6.2-12.0); POSITIVE COUNT YES; POSITIVE DIFFERENTIAL YES; POSITIVE MORPHOLOGY YES; Platelet Count 172 K/mm3 (150-450); RBC Distribution Width CV 14.7 % (11.6-14.6); RBC Distribution Width SD 51.2 fl (35.1-43.9); Red Blood Count 3.76 M/mm3 (4.6-6.2); White Blood Count 14.2 K/mm3 (4.4-11.0)
[2021-08-24 05:40] LABS: Anion Gap 7 (5-15); BUN 13 mg/dL (7-18); BUN/Creat Ratio 15.1 RATIO (10-20); Calcium,Total 7.2 mg/dL (8.5-10.1); Chloride 110 mmol/L (98-107); Creatinine, Serum 0.86 mg/dL (0.70-1.30); EST Glomerular Filtration Rate 92 mL/min (>60); Est Glom Filt Rate - Afr Amer 111 mL/min (>60); Estimated Creatinine Clearance 81.46 ml/min; Glucose 114 mg/dL (74-106); Potassium 3.4 mmol/L (3.5-5.1); Sodium Level 139 mmol/L (136-145)
[2021-08-24] MEDS: Piperacil/Tazobactam 3.375 GM/50 ML ML IV (06:01)
[2021-08-24] MEDS: Levothyroxine 112 MCG Tablet PO (06:01)
[2021-08-24 07:54] VITALS: O2SAT 94
[2021-08-24 08:00] LABS: Blast 6 % (0-0); Lymphocyte 7 % (19-41); Monocyte 29 % (0-10); Neutrophil-Band 1 % (0-5); Neutrophil-Segmented 57 % (47-70); Total Cells Counted 100 (MANUAL DIFF)
[2021-08-24 08:01] LABS: Platelet Estimate ADEQUATE (ADEQ); Red Cell Morphology NORM C+C NORMAL (NORM C&C)
[2021-08-24 08:02] LABS: Differential Indicated MANUAL DIFF
[2021-08-24 08:04] LABS: Absolute Neutrophil Count 8.2 X10^3/uL (2.0-7.7)
[2021-08-24 08:05] LABS: Absolute Lymphocyte Count 0.99 X10^3/uL (0.83-4.51); Lymphocyte # 0.99 X10^3/ul (0.83-4.51)
[2021-08-24 08:56] VITALS: BP 178/89; PULSE 83; RESP 18; TEMP 36.7; O2SAT 94
[2021-08-24 09:00] VITALS: BP 178/89; PULSE 83
[2021-08-24] MEDS: hydrALAZINE 50 MG Tablet 100 MG PO (09:00)
[2021-08-24] MEDS: Finasteride 5 MG Tablet PO (09:01)
[2021-08-24] MEDS: Venlafaxine XR 150 MG Capsule PO (09:01)
[2021-08-24] MEDS: Enoxaparin 40 MG/0.4 ML Syringe SC (09:01)
[2021-08-24] MEDS: Potassium Chloride Oral Tablet 20 MEQ 40 MEQ PO (09:06)
--- NOTE | 2021-08-24 10:58 | PCM.DC ---
Discharge Instructions Diet Discharge Diet: Light diet - advance as tolerated Activity Discharge Activity: Return to Normal Activity Dressing / Incision Call your doctor if you observe: Fever of 101 or Higher, Shortness of breath, Dizziness, Chest pain and Uncontrolled pain Follow Up Care Test Results: Test results from this visit will be discussed in further detail at your follow-up appointment, if applicable. Discharge Plan Admission Admit Date/Time: 08/23/21 00:13 Primary Reason for Your Visit: Abdominal pain Attending Provider: Ok Nava Primary Care Provider: Baldo Lanier Consulting Providers: Ok Orozco ; Connor Roca ; Brooks Mistry ; Baldo Boss ; Rudi Vega ; Carter Irving ; Daniel Cohen ; Melissa Lopez DRAWBRIDGE TENDER Instructions Additional Instructions / Restrictions: If you have any recurrent abdominal pain, signs of bleeding or worsening of symptoms, you will need to return the ER immediately for evaluation. Discharge Orders/Prescriptions Prescriptions: New amoxicillin-pot clavulanate 875-125 mg tablet 1 tab PO BID Qty: 20 RF: 0 Continued pantoprazole [Protonix] 40 mg tablet,delayed release (DR/EC) 40 mg PO DAILY RF: 0 aspirin 81 mg tablet,chewable 81 mg PO DAILY RF: 0 biotin 5,000 mcg tablet,disintegrating 1,000 mcg PO DAILY RF: 0 finasteride 5 mg tablet 5 tablet PO DAILY RF: 0 latanoprost 2.5 ML drops 1 drp EACH EYE QHS RF: 0 levothyroxine 88 MCG tablet 112 mcg PO DAILY RF: 0 losartan 50 MG tablet 100 mg PO QHS RF: 0 carisoprodol 350 MG tablet 350 mg PO 4X/DAY PRN PRN (Reason: Muscle Spasm) RF: 0 venlafaxine 75 MG capsule,extended release 24hr 150 mg PO DAILY RF: 0 mirtazapine 30 MG tablet 30 mg PO QHS RF: 0 hydralazine 50 MG tablet 100 mg PO BID RF: 0 dkrncevjkdjp-lqy-noqh-FA-vit K 1 EACH tablet 1 each PO DAILY RF: 0 apple cider vinegar 300 mg tablet 500 mg PO DAILY RF: 0 pravastatin 80 MG tablet 80 mg PO QHS RF: 0 esomeprazole magnesium 20 MG capsule 20 mg PO DAILY RF: 0 Held ibrutinib 140 mg tablet 140 mg PO DAILY RF: 0 Hold Instructions: Resume on 08/31/21. Until OK per oncology Referrals / Follow Up: Baldo Lanier DO [Primary Care Provider] - In 1 Week Melissa Lopez DRAWBRIDGE TENDER, DRAWBRIDGE TENDER-C [Nurse Practitioner] - 08/27/21 2:30 pm (Friday) Disposition Disposition (needs filled in before D/C Order can be placed): Home, Self Care
--- NOTE | 2021-08-24 13:10 | PCM.DC.SUM ---
Documented by User: Gaby Ashford NP, DIRECTOR PHYSICAL THERAPY-C 08/24/21 13:16 Providers Date of Admission: 08/23/21 Date of Discharge: 08/24/21 Primary Care Physician: Dr. Baldo Lanier DO Consultations 08/23/21 01:00 Consult: Oncology/Hematology Routine Consulting Provider: [facility] ([facility]) Reason for Consult: Txf from [facility] to [facility] w/ ?Typhlitis EMERGENT Consult: No MD Notified: Yes Date Notified: 08/23/21 Time Notified: 01:00 Method of Notification: notified per ED. Reason For Visit: TYPHLITIS Diagnosis Discharge Diagnosis (1) CLL (chronic lymphocytic leukemia): Status: Chronic Code(s): C91.10 - Chronic lymphocytic leukemia of B-cell type not having achieved remission (2) Abdominal pain: Status: Acute Code(s): R10.9 - Unspecified abdominal pain Qualifiers: Abdominal location: right lower quadrant Qualified Code(s): R10.31 - Right lower quadrant pain Medications at Discharge Home Medications latanoprost 1 drp EACH EYE QHS 03/27/15 levothyroxine 112 mcg PO DAILY 03/27/15 losartan 100 mg PO QHS 06/02/17 esomeprazole magnesium 20 mg PO DAILY 06/15/19 pravastatin 80 mg PO QHS 06/15/19 carisoprodol 350 mg PO 4X/DAY PRN PRN 12/23/19 hydralazine 100 mg PO BID 12/23/19 mirtazapine 30 mg PO QHS 12/23/19 venlafaxine 150 mg PO DAILY 12/23/19 rslmglvxervy-njq-dujh-FA-vit K 1 each PO DAILY 09/07/20 aspirin 81 mg chewable tablet 81 mg PO DAILY 11/02/20 pantoprazole 40 mg tablet,delayed release 40 mg PO DAILY 11/02/20 apple cider vinegar 300 mg tablet 500 mg PO DAILY tab 03/01/21 biotin 5,000 mcg disintegrating tablet 1,000 mcg PO DAILY 03/01/21 finasteride 5 mg tablet 5 tablet PO DAILY 06/21/21 ibrutinib 140 mg PO DAILY 08/23/21 amoxicillin-pot clavulanate 1 tab PO BID #20 tab 08/24/21 Hospital Course Operations None Procedures None Summary of Care Provided Hospital Course: Patient is a 76-year-old male admitted 08/23/2021 due to abdominal pain. 1. Acute typhlitis-CT of abdomen pelvis with widespread lymphoproliferative disease with wall thickening of cecum and free fluid tracking along the right pericolic gutter concerning for typhlitis. Oncology consulted during admission. IV PPI and IV Zosyn during admission. Patient's abdominal pain completely resolved, tolerating diet. Discharged on Augmentin to complete course. Continue oral PPI. Advance diet as tolerated. Instructed if any return of abdominal pain, will need to return to the emergency room immediately. Follow-up with PCP and oncology at discharge. 2. CLL, history of non-Hodgkin's lymphoma- follows with Dr. Roca. Oncology consulted as noted above. Patient noted to have 6% blast cells, elevated LDH. CT at outside facility concerning for worsening lymphoproliferative disease. Patient has follow-up with oncology on 08/27/2021. Plan for aggressive outpatient work-up. 3. Hypertension-continue home regimen including hydralazine, losartan. 4. Hyperlipidemia-continue statin. 5. Hypothyroidism-continue Synthroid regimen. 6. History of CVA-continue aspirin, statin. 7. Anxiety/depression-on venlafaxine, mirtazapine. 8. BPH- on finasteride. 9. GERD-PPI. Physical Exam Const alert, oriented x3 and no apparent distress Orientation / Consciousness: awake, oriented to person, oriented to place and oriented to time HEENT normocephalic and moist oral mucous membranes Eyes PERRL, EOMs intact bilaterally and conjunctivae normal Neck no lymphadenopathy Resp normal respiratory effort and clear to auscultation bilaterally Cardio regular rate, regular rhythm and no murmurs Peripheral Pulses: pulses 2+ throughout GI normal to inspection, nondistended, normoactive bowel sounds, non-tender and non-distended Extremity normal to inspection Skin no rashes or lesions noted Lesions: no lesions Rashes: no rashes Trauma: no lacerations or abrasions Neuro CN's II-XII intact bilaterally, no focal motor deficits, no sensory deficits noted and deep tendon reflexes 2+ bilaterally Psych mental status grossly normal and affect normal Patient seen and examined prior to discharge. Physical assessment as noted above. Patient is stable for discharge with follow up recommendations as noted above. This patient was seen by BILLY Gorman under the supervision of Dr. Nava. Weight / BMI Weight Weight: 212 lb 1.355 oz Body Mass Index (BMI) 27.8 ABG / Lab / Microbiology Data Result Diagrams: 08/24/21 03:56 08/24/21 03:56 Laboratory: Laboratory Results - last 24 hr 08/24/21 03:56: WBC 14.2 H, RBC 3.76 L, Hgb 11.6 L, Hct 35.7 L, MCV 94.9 H, MCH 30.9, MCHC 32.5, RDW Std Deviation 51.2 H, RDW Coeff of Deborah 14.7 H, Plt Count 172, MPV 10.6, Immature Gran % (Auto) DIRECTOR PHYSICAL THERAPY, Neut % (Auto) DIRECTOR PHYSICAL THERAPY, Lymph % (Auto) DIRECTOR PHYSICAL THERAPY, [place] % (Auto) DIRECTOR PHYSICAL THERAPY, Eos % (Auto) DIRECTOR PHYSICAL THERAPY, Baso % (Auto) DIRECTOR PHYSICAL THERAPY, Absolute Neuts (auto) 8.2 H, Absolute Lymphs (auto) 0.99, Total Counted 100, Neutrophils % (Manual) 57, Band Neutrophils % 1, Lymphocytes % (Manual) 7 L, Monocytes % (Manual) 29 H, Blast Cells % 6 H*, Nucleated RBC % DIRECTOR PHYSICAL THERAPY, Diff Path Review May foll, Platelet Estimate ADEQUATE, RBC Morphology NORM C+C 08/24/21 03:56: Sodium 139, Potassium 3.4 L, Chloride 110 H, Carbon Dioxide 22.0, Anion Gap 7, BUN 13, Creatinine 0.86, Estim Creat Clear Calc 81.46, Est GFR (MDRD) Af Amer 111, Est GFR (MDRD) Non-Af 92, BUN/Creatinine Ratio 15.1, Glucose 114 H, Calcium 7.2 L Microbiology: Microbiology 08/24/21 08:45 Stool C. difficile DNA Amplification - Final D/C Instructions Discharge Diet: Light diet - advance as tolerated Call your doctor if you observe: Fever of 101 or Higher, Shortness of breath, Dizziness, Chest pain and Uncontrolled pain Meaningful Use Info Meaningful Use Diagnoses (Choose all that apply): None applicable Discharge Plan Admission Admit Date/Time: 08/23/21 00:13 Primary Reason for Your Visit: Abdominal pain Attending Provider: Ok Nava Primary Care Provider: Baldo Lanier Consulting Providers: Ok Orozco ; Connor Roca ; Brooks Mistry ; Baldo Boss ; Rudi Vega ; Carter Irving ; Daniel Cohen ; Melissa Lopez DIRECTOR PHYSICAL THERAPY Instructions Additional Instructions / Restrictions: If you have any recurrent abdominal pain, signs of bleeding or worsening of symptoms, you will need to return the ER immediately for evaluation. Discharge Orders/Prescriptions Prescriptions: New amoxicillin-pot clavulanate 875-125 mg tablet 1 tab PO BID Qty: 20 RF: 0 Continued pantoprazole [Protonix] 40 mg tablet,delayed release (DR/EC) 40 mg PO DAILY RF: 0 aspirin 81 mg tablet,chewable 81 mg PO DAILY RF: 0 biotin 5,000 mcg tablet,disintegrating 1,000 mcg PO DAILY RF: 0 finasteride 5 mg tablet 5 tablet PO DAILY RF: 0 latanoprost 2.5 ML drops 1 drp EACH EYE QHS RF: 0 levothyroxine 88 MCG tablet 112 mcg PO DAILY RF: 0 losartan 50 MG tablet 100 mg PO QHS RF: 0 carisoprodol 350 MG tablet 350 mg PO 4X/DAY PRN PRN (Reason: Muscle Spasm) RF: 0 venlafaxine 75 MG capsule,extended release 24hr 150 mg PO DAILY RF: 0 mirtazapine 30 MG tablet 30 mg PO QHS RF: 0 hydralazine 50 MG tablet 100 mg PO BID RF: 0 zrtakxrjnigu-sra-piyp-FA-vit K 1 EACH tablet 1 each PO DAILY RF: 0 apple cider vinegar 300 mg tablet 500 mg PO DAILY RF: 0 pravastatin 80 MG tablet 80 mg PO QHS RF: 0 esomeprazole magnesium 20 MG capsule 20 mg PO DAILY RF: 0 Held ibrutinib 140 mg tablet 140 mg PO DAILY RF: 0 Hold Instructions: Resume on 08/31/21. Until OK per oncology Referrals / Follow Up: Baldo Lanier DO [Primary Care Provider] - In 1 Week Melissa Lopez DIRECTOR PHYSICAL THERAPY, DIRECTOR PHYSICAL THERAPY-C [Nurse Practitioner] - 08/27/21 2:30 pm (Friday) Disposition Disposition (needs filled in before D/C Order can be placed): Home, Self Care Documented by User: Dr. Ok Nava MD 08/24/21 13:27 Providers Date of Admission: 08/23/21 Reason For Visit: TYPHLITIS Medications at Discharge Home Medications latanoprost 1 drp EACH EYE QHS 03/27/15 levothyroxine 112 mcg PO DAILY 03/27/15 losartan 100 mg PO QHS 06/02/17 esomeprazole magnesium 20 mg PO DAILY 06/15/19 pravastatin 80 mg PO QHS 06/15/19 carisoprodol 350 mg PO 4X/DAY PRN PRN 12/23/19 hydralazine 100 mg PO BID 12/23/19 mirtazapine 30 mg PO QHS 12/23/19 venlafaxine 150 mg PO DAILY 12/23/19 ezdrfhpdcmiz-jzn-yttt-FA-vit K 1 each PO DAILY 09/07/20 aspirin 81 mg chewable tablet 81 mg PO DAILY 11/02/20 pantoprazole 40 mg tablet,delayed release 40 mg PO DAILY 11/02/20 apple cider vinegar 300 mg tablet 500 mg PO DAILY tab 03/01/21 biotin 5,000 mcg disintegrating tablet 1,000 mcg PO DAILY 03/01/21 finasteride 5 mg tablet 5 tablet PO DAILY 06/21/21 ibrutinib 140 mg PO DAILY 08/23/21 amoxicillin-pot clavulanate 1 tab PO BID #20 tab 08/24/21 Hospital Course Summary of Care Provided Minutes Spent on Discharge: 40 Hospital Course: This patient was seen in conjunction with BILLY Gorman . I have independently interviewed and examined the patient and reviewed pertinent historical, laboratory, and other data. Please refer to BILLY Gorman note for details of this patient's presentation, findings, and recommendations. I have reviewed BILLY Gorman note and concur with documented findings. In brief, patient is a 36-year-old gentleman with a history of chronic lymphocytic leukemia of B-cell type who was admitted with abdominal pain. CT obtained demonstrated widespread lymphoproliferative disease with wall thickening involving the cecum and free fluid tracking along the right paracolic gutter concerning for typhlitis with no evidence of perforation. Antibiotics initiated per protocol patient admitted to regular nursing floor for further management Physical Examination: GENERAL: cooperative HEENT: Atraumatic; EYES; Anicteric, Normal Conjunctiva NECK; supple, normal thyroid, RESPIRATORY: Diminished to auscultation CARDIOVASCULAR: Regular S1 S2, GI: soft, normoactive bowel sounds, : No Renal angle tenderness; EXTREMITIES: No edema, no clubbing, MUSCULOSKELETAL: no muscle wasting NEURO: Awake; no lateralizing signs. SKIN: No Rash PSYCH; Flat affect Assessment: 1. Acute typhlitis 2. Chronic lymphocytic leukemia of B-cell type 3. History of non-Hodgkin's lymphoma 4. Essential hypertension 5. Dyslipidemia 6. Hypothyroidism 7. History of previous CVA with no residual effect 8. Depression with anxiety 9. BPH 10. DVT prophylaxis next Hospital course; as documented above Total time spent by myself and the advanced practice practitioner evaluating patient, reviewing labs, subsequent management decisions, discussion with patient as well as other providers 40 minutes ( 25 of which was spent by myself) ABG / Lab / Microbiology Data Result Diagrams: 08/24/21 03:56 08/24/21 03:56 Discharge Plan Admission Admit Date/Time: 08/23/21 00:13 Primary Reason for Your Visit: Abdominal pain Attending Provider: Ok Nava Primary Care Provider: Baldo Lanier Consulting Providers: Ok Orozco ; Connor Roca ; Brooks Mistry ; Baldo Boss ; Rudi Vega ; Carter Irving ; Daniel Cohen ; Melissa Lopez DIRECTOR PHYSICAL THERAPY Instructions Additional Instructions / Restrictions: If you have any recurrent abdominal pain, signs of bleeding or worsening of symptoms, you will need to return the ER immediately for evaluation. Discharge Orders/Prescriptions Prescriptions: New amoxicillin-pot clavulanate 875-125 mg tablet 1 tab PO BID Qty: 20 RF: 0 Continued pantoprazole [Protonix] 40 mg tablet,delayed release (DR/EC) 40 mg PO DAILY RF: 0 aspirin 81 mg tablet,chewable 81 mg PO DAILY RF: 0 biotin 5,000 mcg tablet,disintegrating 1,000 mcg PO DAILY RF: 0 finasteride 5 mg tablet 5 tablet PO DAILY RF: 0 latanoprost 2.5 ML drops 1 drp EACH EYE QHS RF: 0 levothyroxine 88 MCG tablet 112 mcg PO DAILY RF: 0 losartan 50 MG tablet 100 mg PO QHS RF: 0 carisoprodol 350 MG tablet 350 mg PO 4X/DAY PRN PRN (Reason: Muscle Spasm) RF: 0 venlafaxine 75 MG capsule,extended release 24hr 150 mg PO DAILY RF: 0 mirtazapine 30 MG tablet 30 mg PO QHS RF: 0 hydralazine 50 MG tablet 100 mg PO BID RF: 0 btycgmbwygbm-hhp-qoor-FA-vit K 1 EACH tablet 1 each PO DAILY RF: 0 apple cider vinegar 300 mg tablet 500 mg PO DAILY RF: 0 pravastatin 80 MG tablet 80 mg PO QHS RF: 0 esomeprazole magnesium 20 MG capsule 20 mg PO DAILY RF: 0 Held ibrutinib 140 mg tablet 140 mg PO DAILY RF: 0 Hold Instructions: Resume on 08/31/21. Until OK per oncology Referrals / Follow Up: Baldo Lanier DO [Primary Care Provider] - In 1 Week Melissa Lopez NP, DIRECTOR PHYSICAL THERAPY-C [Nurse Practitioner] - 08/27/21 2:30 pm (Friday) Disposition Disposition (needs filled in before D/C Order can be placed): Home, Self Care Charges/Coding Visit Charges Inpatient E&M: 57332 Disch Hosp
[2021-08-24 13:32] LABS: Pathologist Review Reviewed
[2021-08-24 13:56] VITALS: BP 163/82; PULSE 80; RESP 18; TEMP 36.7; O2SAT 91
[2021-08-24 14:59] LABS: Scan Smear per Review Criteria MANUAL DIFF
== END 2021-08-24 14:22 | disposition home or self-care (01) | DRG 392 ==
PROVIDERS: Nurse Practitioner Family; Admitting Provider Family Medicine; PCP Preventive Medicine Occupational Medicine; Visit Provider Internal Medicine
DX: K52.89 Other specified noninfective gastroenteritis and colitis (principal); K35.80 Unspecified acute appendicitis; C91.10 Chronic lymphocytic leukemia of B-cell type not having achieved remission; E03.9 Hypothyroidism, unspecified; E78.5 Hyperlipidemia, unspecified; K21.9 Gastro-esophageal reflux disease without esophagitis; I10 Essential (primary) hypertension; N40.0 Benign prostatic hyperplasia without lower urinary tract symptoms; F41.8 Other specified anxiety disorders; Z79.82 Long term (current) use of aspirin; Z79.890 Hormone replacement therapy; Z79.899 Other long term (current) drug therapy; Z86.73 Personal history of transient ischemic attack (TIA), and cerebral infarction without residual deficits; Z85.72 Personal history of non-Hodgkin lymphomas
CPT/HCPCS: 36415; 80048; 80053; 83615; 83735; 84100; 85025; 87493; 87506; J7030; J7050

== ENCOUNTER 2021-08-28 08:45 | Outpatient (CLI) | payer MEDICARE, OTHER, SELFPAY ==
--- NOTE | 2021-08-28 08:48 | CT_ITS ---
STUDY: CT CHEST, ABDOMEN T PELVIS WITH CONTRAST REASON FOR EXAM: Male, 76 years old. abd bloating, concern for progressive CLL RADIATION DOSAGE (If Supplied By Facility): CTDIvol = ( 28.53 ) mGy, DLP = ( 1987.25 ) mGycm TECHNIQUE: Transaxial imaging was performed following intravenous administration of 100 mm ISOVUE 300. Individualized dose optimization techniques were used for this CT. COMPARISON: 06/14/2019 FINDINGS: CHEST Mild fibrotic changes are the lung bases. There is no demonstrated pleural abnormality. Normal heart and pericardium. There are calcifications of the coronary arteries. Bilateral axillary adenopathy redemonstrated with interval surgery on the left side (new surgical clips). Lymph node lateral to the right pectoralis muscle on image 48 of series 2 has increased in size currently measuring 1.6 x 1.9 cm (previously measured 1.0 x 1.1 cm) on image 37 of series 2. Mediastinal adenopathy has also increased in size. For instance, 2 lymph nodes of the anterior superior mediastinum measure up to 1.1 x 1.7 cm on the left side on image 51 of series 2 (previously measured 0.8 x 1.0 cm). Normal hilar regions. Normal unenhanced pulmonary arteries. There is atherosclerotic calcification of the aortic arch with tortuosity and elongation of the aortic arch and descending thoracic aorta. No destructive bony process. ABDOMEN Focal fatty sparing adjacent to the falciform ligament. No solid hepatic masses. Normal gallbladder and extrahepatic biliary system. Normal spleen. Normal pancreas. Normal bilateral adrenal glands. Simple bilateral renal cysts. No required imaging follow-up needed given high likelihood of benign nature. No hydronephrosis. There is a small hiatal hernia. Normal small intestine. There are multiple colonic diverticula consistent with diverticulosis. There is non-visualization of the appendix. There is diffuse atherosclerotic calcification of the abdominal aorta, without a demonstrated aneurysm. Normal inferior vena cava. Increased retroperitoneal and bilateral iliac chain adenopathy extending to the inguinal regions. For instance, largest single retroperitoneal lymph node on image 43 of series 3 measures 3.1 x 3.6 cm (previously measured 1.6 x 1.8 cm). Distal right iliac chain adenopathy on image 87 of series 3 measures 2.5 x 3.7 cm (previously measured 1.4 x 1.8 cm). Mesenteric adenopathy has also increased in size. Normal abdominal wall. PELVIS Bladder diverticula are noted but incompletely distended bladder. There is no pelvic fluid. Mildly enlarged pelvic sidewall lymph nodes have also increased in size. There is diffuse atherosclerotic calcification of the pelvic arteries. There is are bilateral inguinal hernia containing fat. There are diffuse degenerative changes of the visualized lumbar spine. CT/CT Chest, Abd, Pel w/Contrast IMPRESSION: Since 06/14/2019, unfavorable change. Increased bilateral axillary, mediastinal, retroperitoneal, mesenteric and bilateral iliac chain adenopathy. Electronically Signed: Isaac Griffin MD (Brooks) at 12:48 EDT ,
== END 2021-08-28 23:59 | disposition home or self-care (01) ==
LOC: CT 08:46
PROVIDERS: PCP Preventive Medicine Occupational Medicine; Referring Provider Nurse Practitioner Family; Visit Provider Nurse Practitioner Family
DX: C91.10 Chronic lymphocytic leukemia of B-cell type not having achieved remission (principal)
CPT/HCPCS: 71260; 74177; Q9967; A4216

== ENCOUNTER → 2022-04-02 | Outpatient (CLI) | payer MEDICARE, OTHER, SELFPAY ==
--- NOTE | 2022-04-02 07:15 | CT_ITS ---
CT without contrast involving the left lower extremity. COMPARISON: None FINDINGS: Numerous varicosities within the subcutaneous tissues of the extremity both anteriorly and posteriorly. Irregularity suggestive of Juan R-Schlatter''s disease at the anterior tibial tubercle. Thickened appearance of the distal patellar tendon. Tricompartmental osteoarthrosis of the knee. No acute or healing fracture or malalignment. No unusual lytic or sclerotic lesions of bone. Peripheral vascular calcifications, multivessel. Small lipoma involving the medial head of the gastrocnemius. CT/Extremity Lower WITH Contrast IMPRESSION: No concerning soft tissue masses. Thickening of the distal patellar tendon along with adjacent irregularity at the tibial tuberosity suggestive of sequela of the osseous/disease or sequela of microtrauma. Electronically Signed: Marshall Richardson MD at 23:50 EDT ,
== END | disposition home or self-care (01) ==
LOC: CT 07:13
PROVIDERS: PCP Preventive Medicine Occupational Medicine; Referring Provider Internal Medicine Medical Oncology; Visit Provider Internal Medicine Medical Oncology
DX: M79.89 Other specified soft tissue disorders (principal)
CPT/HCPCS: 73701; Q9967

== ENCOUNTER → 2022-08-21 | Outpatient (CLI) | payer MEDICARE, OTHER, SELFPAY ==
--- NOTE | 2022-08-21 10:44 | VDUE_ITS ---
Reason For Study: Swelling Left Proximal Left jugular vein is spontaneous, widely patent, phasic, with no intraluminal echogenicity noted. Left subclavian vein is spontaneous, widely patent, phasic, with no intraluminal echogenicity noted. Left Arm Left axillary vein is spontaneous, patent, phasic, competent, compressible and demonstrates augmentation. Left brachial vein is compressible. Left cephalic vein is compressible. Left basilic vein is compressible. Left Lower Arm Left radial vein is compressible. Left ulnar vein is compressible. Patient Safety Preliminary called to RN @ Jessica's office. VL/Venous Duplex US, Unilateral Interpretation Summary No evidence for acute deep venous thrombosis[left] upper extremity with patent and compressible cephalic and basilic veins. Ordering Physician: Melissa Lopez Referring Physician: Baldo Lanier Performed By: Gillian Haines RVT ???
== END | disposition home or self-care (01) ==
LOC: CVS 10:44
PROVIDERS: PCP Preventive Medicine Occupational Medicine; Visit Provider Internal Medicine Medical Oncology
DX: M79.89 Other specified soft tissue disorders (principal); C91.10 Chronic lymphocytic leukemia of B-cell type not having achieved remission
CPT/HCPCS: 36415; 80053; 83615; 85025; 93971

== ENCOUNTER 2022-11-26 14:30 | Outpatient (RCR) | payer MEDICARE, OTHER, SELFPAY ==
--- NOTE | 2022-08-30 08:01 | HP.OTEVAL_ITS ---
Patient's Visit Information LUCIEN BASS is a 77 year old M, referred to Occupational Therapy by BILLY Rodriguez, with a diagnosis of left UE lymphedema. Date of Evaluation: 08/29/22 Occupational Therapist: Vika Davison, ANTIONETTER/Khalif, CHT - Subjective This 77 year old male was seen for OT eval with dx of left UE lymphedema pt states swelling started about a month ago. pt states he had swelling almost two years ago and did some lymphedema treatment and used compression sleeve at that time. But now left arm began swelling about 4 weeks ago. At this time he can not find his compression sleeve pt states in 2014 he was dx with non Hodgkin's lymphoma- he had increase in numbers so medication changed to maximum dose. pt works out at [facility] and would like to continue. pt would like to know what more he can do to decrease the swelling in his left UE. - Lymphedema (Circumferential Measure) MCP: right 22.5cm left 24cm Wrist: right 18cm left 20.5cm Lower forearm: right 21cm left 24cm Largest forearm: right left 26cm 30.5cm Elbow: right 27cm left 30cm Largest humerus: right 29.5cm left 30cm Axcillary: right 34cm left 33.5cm - Sensation Sensation Comments: denies - Goals Demonstrate a 20% reduction in edema by d/c: Yes Demonstrate adequate knowledge of self-bangaging by 1st week: Yes Demonstrate adequate knowledge of self-massage by 2nd week: Yes Demonstrate adequate knowledge skin care/prec by 2nd week: Yes Demonstrate adequate knowledge therapeutic exercises by d/c: Yes Select approp compression garment w/donning/care/wear by d/c: Yes Voice need to replace compression garment every 4-6mo by dc: Yes - Rehabilitation General Assessment: pt demo with stage II left UE lymphedema- pt would benefit from skilled OT services 3-4 visits to ensure proper understanding of lymphedema mtg. lymph stimulation ex. self manual lymph drainage massage and fitting and use of compression garment 20-30 mmHg. Today therapist ed. pt on skin care precautions, and POC- will initiate use of compression sleeve and glove daily- off at night- lotion for skin and initiate Exercise. pt to work on his own for 1-2 weeks and return - if arm has not changed will initiate compression short stretch wrapping at night. Pt demo understanding and agree to POC. - Anticipated Interventions Education re assistive Equipment, Education re Diagnosis, Education re Life-long lymphedema Management, Education re Self-Bandaging Techniques, Education re Skin Care and Precautions, Education re Self Massage Techniques, Education re Correct Donning Tech,Care&Wearing Sched Comp Garments, Home Program - Visit Plan TEXT: Thank you for the opportunity to evaluate your patient. For Medicare and Medicare HMO plans, please review the plan of care and approve it. It will need to be FAXED BACK to us at [phone] for Medicare purposes. Please let me know if there are questions or concerns regarding this plan of care. Physician Signature: __Date:
--- NOTE | 2022-08-30 08:03 | HP.OTEVAL_ITS ---
Patient's Visit Information LUCIEN BASS is a 77 year old M, referred to Occupational Therapy by BILLY Rodriguez, with a diagnosis of left UE lymphedema. Date of Evaluation: 08/29/22 Occupational Therapist: Vika Davison, ANTIONETTER/Khalif, CHT - Subjective This 77 year old male was seen for OT eval with dx of left UE lymphedema pt states swelling started about a month ago. pt states he had swelling almost two years ago and did some lymphedema treatment and used compression sleeve at that time. But now left arm began swelling about 4 weeks ago. At this time he can not find his compression sleeve pt states in 2014 he was dx with non Hodgkin's lymphoma- he had increase in numbers so medication changed to maximum dose. pt works out at [facility] and would like to continue. pt would like to know what more he can do to decrease the swelling in his left UE. - Lymphedema (Circumferential Measure) MCP: right 22.5cm left 24cm Wrist: right 18cm left 20.5cm Lower forearm: right 21cm left 24cm Largest forearm: right left 26cm 30.5cm Elbow: right 27cm left 30cm Largest humerus: right 29.5cm left 30cm Axcillary: right 34cm left 33.5cm - Sensation Sensation Comments: denies - Quick DASH-Disab of Arm,Shoulder& Hand Quick DASH Score: 0 - Goals Demonstrate a 20% reduction in edema by d/c: Yes Demonstrate adequate knowledge of self-bangaging by 1st week: Yes Demonstrate adequate knowledge of self-massage by 2nd week: Yes Demonstrate adequate knowledge skin care/prec by 2nd week: Yes Demonstrate adequate knowledge therapeutic exercises by d/c: Yes Select approp compression garment w/donning/care/wear by d/c: Yes Voice need to replace compression garment every 4-6mo by dc: Yes - Rehabilitation General Assessment: pt demo with stage II left UE lymphedema- pt would benefit from skilled OT services 3-4 visits to ensure proper understanding of lymphedema mtg. lymph stimulation ex. self manual lymph drainage massage and fitting and use of compression garment 20-30 mmHg. Today therapist ed. pt on skin care precautions, and POC- will initiate use of compression sleeve and glove daily- off at night- lotion for skin and initiate Exercise. pt to work on his own for 1-2 weeks and return - if arm has not changed will initiate compression short stretch wrapping at night. Pt demo understanding and agree to POC. - Anticipated Interventions Education re assistive Equipment, Education re Diagnosis, Education re Life-long lymphedema Management, Education re Self-Bandaging Techniques, Education re Skin Care and Precautions, Education re Self Massage Techniques, Education re Correct Donning Tech,Care&Wearing Sched Comp Garments, Home Program - Visit Plan TEXT: Thank you for the opportunity to evaluate your patient. For Medicare and Medicare HMO plans, please review the plan of care and approve it. It will need to be FAXED BACK to us at [phone] for Medicare purposes. Please let me know if there are questions or concerns regarding this plan of care. Physician Signature: Date:
--- NOTE | 2022-11-19 14:26 | OTREVAL_ITS ---
Melissa Lopez, PEDIATRIC CRITICAL CARE NURSE-C, It has been my pleasure to treat LUCIEN BASS over the last 4 visits for left UE lymphedema. Please see the progress note below for an update on the occupational therapy plan of care! Subjective: pt states he is interested in the arm pump-. would like to see if he can get one for home Objective/Function: Lymphedema (Circumferential Measure). MCP: right 22.5cm left 21cm. Wrist: right 18cm left 20 cm. Lower forearm: right 21cm left 21.5cm. Largest forearm: right left 26cm left 27cm. Elbow: right 27cm left 30cm. Largest humerus: right 29.5cm left 30cm. Axcillary: right 34cm left 35cm Plan Plan: pt has not progressed well with decreasing his left arm limb. will work on home compression pump for more consistent mtg of left UE lymphedema. Goals - Goals Demonstrate a 20% reduction in edema by d/c: Yes Demonstrate adequate knowledge of self-bangaging by 1st week: Yes Demonstrate adequate knowledge of self-massage by 2nd week: Yes Demonstrate adequate knowledge skin care/prec by 2nd week: Yes Demonstrate adequate knowledge therapeutic exercises by d/c: Yes Select approp compression garment w/donning/care/wear by d/c: Yes Voice need to replace compression garment every 4-6mo by dc: Yes Patient Goals: Learn how to Manage Lymphedema, Learn how to Apply Compression Stockings Anticipated Interventions Anticipated Interventions: Education re assistive Equipment, Education re Diagnosis, Education re Life-long lymphedema Management, Education re Self- Bandaging Techniques, Education re Skin Care and Precautions, Education re Self Massage Techniques, Education re Correct Donning Tech,Care&Wearing Sched Comp Garments, Home Program Please do not hesitate to contact me at [phone] by phone or if you have questions or concerns regarding this new plan of care! Sincerely, Vika Davison OTR/L, CHT
--- NOTE | 2023-02-06 10:55 | HP.OTDCNRP_ITS ---
Patient Information Patient Information: LUCIEN BASS was seen in my office for initial evaluation on 08/29/22. The following Plan of Care was established for this patient: POC Established Plan: pt has not progressed well with decreasing his left arm limb. will work on home compression pump for more consistent mtg of left UE lymphedema. Anticipated Interventions Anticipated Interventions: Education re assistive Equipment, Education re Diagnosis, Education re Life-long lymphedema Management, Education re Self- Bandaging Techniques, Education re Skin Care and Precautions, Education re Self Massage Techniques, Education re Correct Donning Tech,Care&Wearing Sched Comp Garments and Home Program Last Seen Last Seen: This patient was last seen in our office 11/26/22. Pertinent comments regarding their Occupational therapy will appear below: pt was seen for 5 OT session to ed. pt on mtg of lymphedema- pt did get home compression pump from [facility] and is happy with results. At this time pt will cont. with home mtg and is d/c from OT services. At this point I will be discontinuing this patient from occupational therapy. I would be happy to see this patient again in the future if found appropriate by the physician. Thank you! Vika Davison, OTR/L, CHT
== END 2022-11-26 19:00 | disposition home or self-care (01) ==
LOC: OT 14:30
PROVIDERS: PCP Preventive Medicine Occupational Medicine; Referring Provider Nurse Practitioner Family; Visit Provider Nurse Practitioner Family
DX: I89.0 Lymphedema, not elsewhere classified (principal)
CPT/HCPCS: 97166; 97530

== ENCOUNTER 2023-10-17 08:00 | Outpatient (RCR) | payer MEDICARE, OTHER, SELFPAY ==
--- NOTE | 2023-05-20 11:50 | HP.OTEVAL_ITS ---
Patient's Visit Information Visit Information Visit Information: LUCIEN BASS is a 78 year old M, referred to Occupational Therapy by BILLY Rodriguez, with a diagnosis of left UE lymphedema. Date of Evaluation: 05/19/23 Occupational Therapist: CHER Bella/Khalif, CHT Subjective Subjective: This 78 year old male was seen for OT eval with dx of left UE lymphedema- pt arrives with compression sleeve. pt states he is using compression sleeve during the day 20-30 mmHg. And using his compression pump 1 x a day for 60 min. pt states he has good success with using pump and his compression sleeve. pt states he does take compression sleeve on and off during the day to avoid getting his sleeve dirty. pt admits he does not wear his compression sleeve at times. pt states arm is swollen when he wakes up. states compression sleeve is greater than 6 months old pt would like to know if he should use pump 2x a day to help mtg. his swelling. Lymphedema (Circumferential Measure) MCP: left 21cm Wrist: left 20cm Lower forearm: left 22cm Largest forearm: left 30cm Elbow: left 30cm Largest humerus: left 29cm Axcillary: left 34cm Upper Exremity Comments: retrieved from initial eval: MCP: right 22.5cm left 24cm Wrist: right 18cm left 20.5cm Lower forearm: right 21cm left 24cm Largest forearm: right left 26cm 30.5cm Elbow: right 27cm left 30cm Largest humerus: right 29.5cm left 30cm Axillary: right 34cm left 33.5cm measurements demo reduction from prior therapy sessions Quick DASH-Disab of Arm,Shoulder& Hand Quick DASH Score: 20.4525 Goals Goal: Patient will demonstrate a 20% reduction in edema by discharge: Yes Goal: Patient will demonstrate adequate knowledge of self-bandaging by the end of the first week.: Yes Goal: Patient will demonstrate adequate knowledge of self-massage by the end of the second week.: Yes Goal: Patient will demonstrate adequate knowledge of skin care and precautions by the end of the first week.: Yes Goal: Patient will select an appropriate compression garment and demonstrate graham quate knowledge of correct donning technique, care and wearing schedule by discharge.: Yes Goal: Patient will voice understanding of need to replace compression garment every four to six months by discharge.: Yes Rehabilitation General Assessment: pt demo with stage 2 lymphedema and demo with increase swelling at night ( pt is without compression at night) After further discussion with pts on POC- pt will order new compression sleeve 20-30mmH- and use daily- if this does not help mtg swelling advised pt he will need to wrap arm at night to help mtg. his lymphedema- therapist reviewed pts home program- of performing his self manual lymph massage to neck/under arm even with the pump to assist in fluid movement- pt demo understanding- pt to return in 2-3 weeks after receiving his new garment, returning to perform SMLD and using compression pump 1x a day for 60 min, use compression sleeve daily and with his UB strengthening program. pt demo understanding and agree to POC. Rehabilitation Potential: Good Anticipated Interventions Anticipated Interventions: A/AAROM/PROM, Education re Life-long lymphedema Management, Education re Self-Bandaging Techniques, Education re Skin Care and Precautions, Education re Self Massage Techniques and Education re Correct Donning Tech,Care&Wearing Sched Comp Garments Visit Plan Frequency: 1-2x /Week Duration: 4 Weeks TEXT: Thank you for the opportunity to evaluate your patient. For Medicare and Medicare HMO plans, please review the plan of care and approve it. It will need to be FAXED BACK to us at [phone] for Medicare purposes. Please let me know if there are questions or concerns regarding this plan of care. Physician Signature:____ Date:
--- NOTE | 2023-09-09 12:25 | HP.OTREVAL ---
Re-Evaluation Intro: Melissa Lopez, JOSEFA-C, It has been my pleasure to treat LUCIEN BASS over the last 3 visits for left UE lymphedema. Please see the progress note below for an update on the occupational therapy plan of care! Subjective Subjective: pt arrives to session- states he just finished using his pump for his arm- has not been able to perform short stretch wrapping as this is to hard on his wifes hands. Pt states he continues to wear his compression sleeve and glove but still is unable to keep swelling down- states he is using his pump 2 x a day. Objective Objective/Function: pt demo with edema distal to left elbow MCP: right 22.5cm left 24cm Wrist: right 18cm left 23cm increase from 20 cm Lower forearm: right 21cm left 27cm increase from 24cm Largest forearm: right 26cm left 33.4cm increase from 30.5cm Elbow: right 27cm left 32cm increase from 30cm Largest humerus: right 29.5cm left 34cm increase from 33cm Axillary: right 34cm left 33.5cm no change pt reports compliance with his HEP of using compression garments- and home compression pump x 2 without change in limb size. pt states short stretch wrapping did not go well due to wifes OA in her hands. due to regression and increase in limb size pt rec'd custom compression sleeve and glove increasing compression class to 30-40mmHg. will send order to be sign by to submit custom compression garment order. pt will return in 2-3 weeks following a sx procedure. Plan Plan Plan: advised pt we can wrap hand/arm at night use compression during the day and pump obtain custom compression garment Goals Goals Goal: Patient will demonstrate a 20% reduction in edema by discharge: Yes Goal: Patient will demonstrate adequate knowledge of self-bandaging by the end of the first week.: Yes Goal: Patient will demonstrate adequate knowledge of self-massage by the end of the second week.: Yes Goal: Patient will demonstrate adequate knowledge of skin care and precautions by the end of the first week.: Yes Goal: Patient will select an appropriate compression garment and demonstrate adequate knowledge of correct donning technique, care and wearing schedule by discharge.: Yes Goal: Patient will voice understanding of need to replace compression garment every four to six months by discharge.: Yes Patient Goals: Learn how to Manage Lymphedema and Learn how to Apply Compression Stockings Anticipated Interventions Anticipated Interventions Anticipated Interventions: A/AAROM/PROM, Education re Life-long lymphedema Management, Education re Self-Bandaging Techniques, Education re Skin Care and Precautions, Education re Self Massage Techniques and Education re Correct Donning Tech,Care&Wearing Sched Comp Garments Re-Evaluation Ending Re-evaluation ending: Please do not hesitate to contact me at [phone] by phone or if you have questions or concerns regarding this new plan of care! Sincerely, Vika Davison, OTR/L, CHT
== END 2023-10-17 19:00 | disposition home or self-care (01) ==
LOC: OT 08:00
PROVIDERS: PCP Preventive Medicine Occupational Medicine; Visit Provider Nurse Practitioner Family
DX: I89.0 Lymphedema, not elsewhere classified (principal)
CPT/HCPCS: 97166; 97530

== ENCOUNTER 2024-04-17 18:16 | Emergency (ER) | payer MEDICARE, OTHER, SELFPAY ==
[2024-04-17 18:16] VITALS: BP 149/86; PULSE 63; RESP 16; TEMP 36.6; O2SAT 98; BMI 26.9
--- NOTE | 2024-04-17 18:20 | EKG12_ITS ---
Test Reason : CP Blood Pressure : */* mmHG Vent. Rate : 66 BPM Atrial Rate : 66 BPM P-R Int : 202 ms QRS Dur : 68 ms QT Int : 404 ms P-R-T Axes : 57 13 27 degrees QTcB Int : 423 ms Normal sinus rhythm Septal infarct , age undetermined Abnormal ECG Confirmed by MILADYS ECHOLS MD ([id number]), material expeditor MAREK REIS ([id number]) on 04/19/2024 9:25:13 AM Referred By: Confirmed By: MILADYS ECHOLS MD
--- NOTE | 2024-04-17 18:55 | RAD_ITS ---
INDICATION: chest pain EXAMINATION/TECHNIQUE: X-RAY - portable upright AP chest x-ray COMPARISON: 05/02/2015 FINDINGS: LINES/DEVICES: None. LUNGS: Bibasilar subsegmental atelectasis and/or fibrosis. No consolidation, vascular congestion or pleural effusion. MEDIASTINUM AND CARDIOVASCULAR STRUCTURES: Cardiac silhouette stable within normal limits. BONES AND SOFT TISSUES: Unremarkable. RAD/Chest 1 View (Portable) IMPRESSION: No acute consolidative process. Electronically Signed: Trav Henderson MD at 19:44 EDT ,
[2024-04-17 19:06] LABS: Hematocrit 39.5 % (40-54); Mean Corp Hgb Conc 32.9 g/dL (32-36); Mean Corpuscular Hgb 28.6 pg (27.0-32.0); Mean Platelet Vol. 10.8 fl (6.2-12.0); POSITIVE COUNT YES; POSITIVE DIFFERENTIAL YES; POSITIVE MORPHOLOGY YES; Platelet Count 124 K/mm3 (150-450); RBC Distribution Width CV 16.1 % (11.6-14.6); RBC Distribution Width SD 51.1 fl (35.1-43.9); Red Blood Count 4.54 M/mm3 (4.6-6.2); White Blood Count 14.9 K/mm3 (4.4-11.0)
[2024-04-17 19:11] LABS: Differential Indicated MANUAL DIFF
[2024-04-17 19:22] LABS: Anion Gap 7 (5-15); BUN 24 mg/dL (7-18); BUN/Creat Ratio 24.7 RATIO (10-20); Chloride 105 mmol/L (98-107); Creatinine, Serum 0.97 mg/dL (0.70-1.30); EST Glomerular Filtration Rate 80 mL/min (>60); Est Glom Filt Rate - Afr Amer 96 mL/min (>60); Estimated Creatinine Clearance 68.89 ml/min; Glucose 159 mg/dL (74-106); Potassium 3.7 mmol/L (3.5-5.1); Sodium Level 138 mmol/L (136-145); Troponin-I HS (w/2H Reflex) 20 pg/mL (3.0-78.0)
--- NOTE | 2024-04-17 19:25 | ED.RN ---
Patient ambulated to bathroom.
[2024-04-17 19:38] LABS: Mucous, Urine 0 SEEN /hpf (<or=2+)
[2024-04-17 19:41] LABS: Color, Urine Yellow (Yellow); Glucose, Dipstick Normal (Normal); Ketone-Dipstick 5 mg/dl (Negative); Leukocyte Esterase-Dipstick 25 /ul (Negative); Nitrite-Dipstick Positive (Negative); Occult Blood-Urine 250 /ul (Negative); Protein-Dipstick 100 mg/dl (Negative); Specific Gravity, Urine 1.015 (1.002-1.030); Urine Bilirubin Dipstick Negative (Negative); Urine Clarity Cloudy (Clear); Urine Urobilinogen 1 mg/dl (Normal)
[2024-04-17 19:53] LABS: Bacteria 1+ /hpf (None Seen); Red Blood Cells-Urine 50-100 SEEN /hpf (0-5); Red Cell Cast 0-5 SEEN /lpf (None Seen); Squamous Epithelial Cells - UA 0-5 SEEN /hpf (0-5); White Blood Cells 5-10 SEEN /hpf (0-5)
[2024-04-17 20:10] LABS: Lymphocyte 7 % (19-41); Monocyte 19 % (0-10); Neutrophil-Band 2 % (0-5); Neutrophil-Segmented 72 % (47-70); Total Cells Counted 100 (MANUAL DIFF)
[2024-04-17 20:13] LABS: Absolute Lymphocyte Count 1.04 X10^3/uL (0.83-4.51); Reactive Lymphocyte RARE
[2024-04-17 20:16] VITALS: PULSE 81; RESP 13
--- NOTE | 2024-04-17 20:43 | EDS_ITS ---
HPI HPI - GI History of Present Illness Chief Complaint: Abd Pain Informant: patient and spouse/S.O. Abdominal Pain/Flank Pain Onset: Days Context: Gradual Onset Timing: Intermittent Quality: Cramping Location: - (Suprapubic abdominal pain.) Current Severity: Mild Maximum Severity: Mild Worsened by: Nothing Relieved by: Nothing Nausea/Vomiting/Emesis GI Symptom: Negative for Nausea or Vomiting Diarrhea/Melena/Hematochezia GI Symptom: Negative for Diarrhea, Melena or Hematochezia Associated Symptoms Associated Symptoms: Positive for Hematuria; Negative for Dysuria or Frequency Narrative Narrative: 79-year-old male history of non-Hodgkin's lymphoma and CLL. Prior to 3 hernias repaired. Complaint of lower abdominal pain that started 2 days ago. Is intermittent. No nausea vomiting diarrhea. No dysuria. But today did notice hematuria. He was seen at [place] emergency department diagnosis abdominal pain uncertain etiology and discharged home on narcotic pain medication Zofran as needed. He denies any other prior abdominal surgeries other than his hernia repairs. Denies any back pain. No fever Prior similar symptoms: No Recent Illness/Hospitalization: No PFSH PFSH Medical History Infectious colitis Prerenal azotemia Lymphedema of left upper extremity Left upper extremity swelling CLL (chronic lymphocytic leukemia) Abdominal pain Recurrent right inguinal hernia Inguinal hernia Bradycardia Encounter for education Swelling of left hand NHL (non-Hodgkin's lymphoma) Seroma after procedure CLL (chronic lymphocytic leukemia) Elevated LDH Night sweats Axillary adenopathy Stroke med port removal Hypothyroidism Hypertension Hyperlipidemia Glaucoma Seasonal allergies History of non-Hodgkin's lymphoma Home Medications ?Medication ?Instructions ?Recorded ?Last Taken ?Type latanoprost 0.005 % eye drops 1 drp EACH EYE QHS Check with 03/27/15 Unknown History primary doctor losartan 50 mg tablet 100 mg PO QHS bp 06/02/17 Unknown History pravastatin 80 mg tablet 80 mg PO QHS Check with primary 06/15/19 Unknown History doctor carisoprodol 350 mg tablet 350 mg PO 4X/DAY PRN PRN Muscle 12/23/19 Unknown History Spasm hydralazine 50 mg tablet 100 mg PO BID bp 12/23/19 04/14/20 08:30 History 100 MG mirtazapine 30 mg tablet 30 mg PO QHS Check with primary 12/23/19 Unknown History doctor venlafaxine 75 mg capsule,extended 150 mg PO DAILY depression 12/23/19 Unknown History release 24 hr pantoprazole 40 mg tablet,delayed 40 mg PO DAILY reflux 11/02/20 Unknown History release (Protonix) biotin 5,000 mcg disintegrating 1,000 mcg PO DAILY Check with 03/01/21 Unknown History tablet primary doctor ibrutinib 140 mg tablet 140 mg PO DAILY cancer 08/23/21 08/19/21 History ferrous sulfate 140 mg (45 mg 140 mg PO DAILY 03/05/23 Unknown History iron) tablet,extended release levothyroxine 88 mcg tablet 112 mcg PO DAILY Check with 04/02/23 Unknown History primary doctor multivitamin 1 tab PO DAILY 06/25/23 Unknown History aspirin 81 mg chewable tablet 81 mg PO BID Check with primary 12/31/23 Unknown History doctor ciprofloxacin HCl 500 mg tablet 500 mg PO BID 10 days #20 tabs 04/17/24 Unknown Rx (Cipro) hydralazine 100 mg tablet 100 mg PO BID 04/17/24 Unknown History hydrocodone-acetaminophen 5-325mg 1 tab PO Q6H PRN PRN pain 04/17/24 Unknown History 5mg-325mg liothyronine 5 mcg tablet 10 mcg PO DAILY 04/17/24 Unknown History losartan 100 mg tablet 100 mg PO DAILY 04/17/24 Unknown History ondansetron 4 mg disintegrating 4 mg PO Q8H PRN PRN nausea and 04/17/24 Unknown History tablet vomiting venlafaxine 150 mg 150 mg PO DAILY 04/17/24 Unknown History capsule,extended release 24 hr Allergy/AdvReac Type Severity Reaction Status Date / Time No Known Allergies Allergy Verified 04/17/24 18:16 Family History Mother Arthritis Hypertension Heart disease Father Hypertension Hyperlipidemia Heart disease Arthritis Sister Colon cancer Uncle Diabetes Surgical History Hx of right inguinal hernia repair History of surgical procedure on eye proper using laser s/p axillary lymph node biopsy History of bilateral inguinal hernia repair Status post glaucoma surgery S/P cardiac catheterization BILATERAL SHOULDER SURGERY Hx of tonsillectomy H/O cataract extraction History of back surgery Social History household members: spouse Smoking Status: Never smoker alcohol intake: current alcohol intake frequency: a few times a month substance use type: does not use ROS ROS ED ROS Narrative Lower abdominal pain. Hematuria today. Constitutional Constitutional ED: Denies chills or fever(s) ENT ENT ED: Denies ear pain Respiratory/Chest Respiratory/Chest: Denies cough or dyspnea Gastrointestinal Gastrointestinal: Reports abdominal pain; Denies constipation, diarrhea, melena, nausea or vomiting Genitourinary Genitourinary ED: Reports hematuria; Denies dysuria Musculoskeletal Musculoskeletal: Denies arthralgias or back pain Integumentary Denies abscess Neurologic Neurologic: Denies headache(s) Psychiatric Psychiatric: Denies anxiety Endocrine Endocrinology: Denies polydipsia Hematologic/Lymphatic Hematologic/Lymphatic: Denies easy bleeding Allergic/Immunologic Allergic/Immunologic ED: Denies mouth swelling, tongue swelling or urticaria EXAM Physical Exam Narrative Exam Narrative: Well-appearing or male. Vital signs stable afebrile. H EENT exam unremarkable. Neck nontender no JVD. Lungs to auscultation. Heart regular rate and rhythm rate about 60 no murmur. Chest wall ribs nontender. Abdomen soft nondistended normal bowel sounds no peritoneal signs. Right upper outer quadrant unremarkable. Mild suprapubic tenderness. No hernia or mass. No pulsatile mass. Moving all 4 extremities. Nontender no edema. Back nontender. Neurologically is awake alert no focal motor deficits. Const Vital Signs: 04/17/24 18:16 04/17/24 18:53 04/17/24 20:16 Temperature 98 F Temperature Source Oral Pulse Rate 63 81 Respiratory Rate 16 13 Blood Pressure 149/86 H Blood Pressure Mean 107 Pulse Ox 98 Oxygen Delivery Method Room Air Room Air 04/17/24 22:00 Temperature Temperature Source Pulse Rate 70 Respiratory Rate 16 Blood Pressure Blood Pressure Mean Pulse Ox Oxygen Delivery Method Room Air Positive well nourished and well developed; Negative for obese, cachectic, cont ractures or unkempt General Appearance ED: well developed and NAD; Negative for unkempt, cachectic, contractures or pallor Nutritional Appearance: Negative for cachectic or obese HEENT Reports moist mucous membranes normocephalic and atraumatic; Negative for trauma or tenderness Eyes PERRL and EOMs intact bilaterally General Eye ED: Negative for pale conjunctiva or scleral icterus Neck no lymphadenopathy, supple and no JVD General: Negative for tenderness Resp normal respiratory effort and clear to auscultation bilaterally Effort and Inspection: Negative for respiratory distress Auscultation: Negative for rales, rhonchi, wheezes or diminished lung sounds Cardio regular rate, regular rhythm, S1 normal heart sound, S2 normal heart sound and no murmurs Rate: Negative for bradycardia or tachycardic Rhythm: Negative for abnormal rhythm GI non-distended and no masses; Negative for non-tender Inspection: Negative for abdominal distention Auscultation: normoactive bowel sounds Palpation: soft and tender; Negative for guarding, rigid, hepatomegaly, splenomegaly, hernia, mass, pulsatile mass or rebound tenderness present Back/Spine no CVA tenderness General Back: Negative for CVA tenderness Cervical Spine: Negative for cervical spine tenderness Thoracic Spine / Upper Back: Negative for thoracic spinal tenderness Lumbar Spine / Lower Back: Negative for lumbar spinal tenderness Extremity full ROM General Extremety ED: Negative for edema or tenderness General Extremity: Negative for edema Neuro CN's II-XII intact bilaterally and moves all extremities Sensorium / Orientation: alert, oriented to person, oriented to place and oriented to time; Negative for orientation impaired, confused, lethargic or stuporous Motor Exam: strength 5/5 throughout; Negative for general weakness or strength abnormal Psych mental status grossly normal and thought process normal Appearance: Negative for unkempt Attitude: No agitated Mood & Affect: Negative for depressed, anxious or tearful Skin no wounds General Skin Exam: Negative for jaundice or pallor Lesions: no lesions Rashes: no rashes Trauma: Negative for abrasion Nails: Negative for discolored MDM MDM MDM Narrative Medical decision making narrative: 79-year-old male lower abdominal pain. May be UTI versus other etiologies. CAT scan and labs are being obtained. This could be diverticulitis I do not think it is going to be. Clinically does not look like appendicitis or gallbladder disease. Clinically does not look like an obstruction. Repeat exam patient is doing well at 10:05 PM. We went over his test results. Repeat abdominal exam is benign. Awaiting his CAT scan results. Currently treated for a UTI. Culture sent. He will be placed on Cipro 500 twice daily for 10 days. History & Record Review Discussion w/independent historian: Patient Additional record(s) reviewed:: Prior inpatient record, Prior outpatient record, Prior ED visit and Prior labs Lab Data Attestation: I reviewed the patient's lab results. Lab results narrative: CBC shows white count 14.9. H&H 13 and 39. Platelets 124. Electrolytes show 7. BUN 24 creatinine 0.9. Nursing protocol to the troponin is normal at 20. UA shows 50-100 red cells. 5-10 white cells. 1+ bacteria and positive nitrates consistent with a UTI. A culture will be sent. Labs: Laboratory Results - last 24 hr 04/17/24 04/17/24 04/17/24 18:52 19:29 21:12 WBC 14.9 H RBC 4.54 L Hgb 13.0 Hct 39.5 L MCV 87.0 MCH 28.6 MCHC 32.9 RDW Std Deviation 51.1 H RDW Coeff of Deborah 16.1 H Plt Count 124 L MPV 10.8 Neut % (Auto) Not Reportable Absolute Neuts (auto) 11.0 H Absolute Lymphs (auto) 1.04 Total Counted 100 Neutrophils % (Manual) 72 H Band Neutrophils % 2 Lymphocytes % (Manual) 7 L Monocytes % (Manual) 19 H Diff Path Review May foll Reactive Lymphocytes RARE Sodium 138 Potassium 3.7 Chloride 105 Carbon Dioxide 26.0 Anion Gap 7 BUN 24 H Creatinine 0.97 Estim Creat Clear Calc 68.89 Est GFR (MDRD) Af Amer 96 Est GFR (MDRD) Non-Af 80 BUN/Creatinine Ratio 24.7 H Glucose 159 H Calcium 9.0 Troponin I High Sens 20 20 Urine Color Yellow Urine Clarity Cloudy Urine pH 6.0 Ur Specific [place] 1.015 Urine Protein 100 H Urine Glucose (UA) Normal Urine Ketones 5 H Urine Occult Blood 250 H Urine Nitrite Positive H Urine Bilirubin Negative Urine Urobilinogen 1 H Ur Leukocyte Esterase 25 H Urine RBC 50-100 SEEN Urine WBC 5-10 SEEN Ur Squamous Epith Cells 0-5 SEEN Urine Bacteria 1+ RBC Casts 0-5 SEEN Urine Mucus 0 SEEN Radiography Diagnostic Testing: Clinical Impression(s) from Imaging Studies Chest X-Ray 04/17/24 18:55 IMPRESSION: No acute consolidative process. Electronically Signed: Trav Henderson MD at 19:44 EDT , Abdomen/Pelvis CT 04/17/24 20:48 IMPRESSION: No acute findings in the abdomen or pelvis. Overall progression of retroperitoneal, mesenteric and pelvic adenopathy consistent with lymphoproliferative disorder. Electronically Signed: Trav Henderson MD at 22:13 EDT Reading Location ID and State: [address] [place] [address] Tel , Service support , Chest x-ray, portable, single view interpreted by myself showed no acute abnormality. Normal cardiac silhouette. Normal lung christie. Chronic changes. Also read the radiologist who agrees. Discharge Plan Triage Chief Complaint: Abd Pain ED Provider: Don Manrique Dx/Rx/DC Orders Clinical Impression: Urinary tract infection, Abdominal pain, History of lymphoma Instructions: ED Bladder Infection, Male (Adult) Prescriptions: New ciprofloxacin HCl [Cipro] 500 mg tablet 500 mg PO BID 10 Days Qty: 20 0RF No Action pantoprazole [Protonix] 40 mg tablet,delayed release (DR/EC) 40 mg PO DAILY aspirin 81 mg tablet,chewable 81 mg PO BID biotin 5,000 mcg tablet,disintegrating 1,000 mcg PO DAILY ferrous sulfate 140 mg (45 mg iron) tablet extended release 140 mg PO DAILY Rx Instructions: 45mg oral tablet (elemental iron) multivitamin Tablet 1 tab PO DAILY latanoprost 2.5 ML drops 1 drp EACH EYE QHS Patient Comments: EACH EYE levothyroxine 88 mcg tablet 112 mcg PO DAILY losartan 50 MG tablet 100 mg PO QHS carisoprodol 350 MG tablet 350 mg PO 4X/DAY PRN PRN (Reason: Muscle Spasm) venlafaxine 75 MG capsule,extended release 24hr 150 mg PO DAILY mirtazapine 30 MG tablet 30 mg PO QHS hydralazine 50 MG tablet 100 mg PO BID pravastatin 80 MG tablet 80 mg PO QHS ibrutinib 140 mg tablet 140 mg PO DAILY hydrocodone-acetaminophen 5-325 mg tablet 1 tab PO Q6H PRN PRN (Reason: pain) hydralazine 100 mg tablet 100 mg PO BID liothyronine 5 mcg tablet 10 mcg PO DAILY ondansetron 4 mg tablet,disintegrating 4 mg PO Q8H PRN PRN (Reason: nausea and vomiting) venlafaxine 150 mg capsule,extended release 24hr 150 mg PO DAILY losartan 100 mg tablet 100 mg PO DAILY Primary Care Provider: Baldo Lanier Referrals: Baldo Lanier DO [Primary Care Provider] - 3-5 Days Activity Restrictions/Additional Instructions: Tylenol for pain. Cipro the antibiotic 1 pill twice a day for 10 days. You have a urinary tract infection. Follow-up to ensure it is improving. Return if worse. Plenty of fluids like water to help flush out your bladder and prevent blood from obstructing you from being able to urinate. Print Language: Romansh Disposition Disposition: Home, Self Care
--- NOTE | 2024-04-17 20:48 | CT_ITS ---
INDICATION: Lower abdominal pain, history of non-Hodgkin''s lymphoma, CLL EXAMINATION: CT ABDOMEN AND PELVIS WITH CONTRAST - CT Abdomen And Pelvis W/ Contrast Injection TECHNIQUE: Helically acquired images were obtained of the abdomen and pelvis following IV contrast. A radiation dose optimization technique was used for this scan. IV Contrast dosage and agent: 100 cc [id number] Oral contrast: None. COMPARISON: 08/28/2021 FINDINGS: LOWER CHEST: Bibasilar dependent and/or fibrotic changes. No cardiomegaly or pericardial effusion. LIVER: No concerning focal mass. GALLBLADDER AND BILIARY TREE: No calcified gallstones. No gallbladder distension or wall edema. No intra- or extrahepatic biliary ductal dilation. PANCREAS: No focal cystic or solid mass. SPLEEN: Normal size without focal cystic or solid mass. ADRENAL GLANDS: No nodules. KIDNEYS AND URETERS: Uniform enhancement with bilateral cortical cysts. No hydronephrosis. PERITONEUM: No ascites or free air. BOWEL: No evidence of acute appendicitis. No stomach or bowel distension. Colonic diverticulosis without focal inflammatory bowel wall changes. LYMPH NODES: Progressive enlargement to numerous to count retroperitoneal, mesenteric and pelvic lymph nodes consistent with the clinical history. VESSELS: Aorta is non-dilated. URINARY BLADDER: Small bladder diverticula. REPRODUCTIVE ORGANS: Mild prostate hypertrophy. ABDOMINAL WALL: Small fat-containing umbilical hernia. BONES: No lytic or blastic abnormality. CT/Abdomen/Pelvis W IV Cont ONLY IMPRESSION: No acute findings in the abdomen or pelvis. Overall progression of retroperitoneal, mesenteric and pelvic adenopathy consistent with lymphoproliferative disorder. Electronically Signed: Trav Henderson MD at 22:13 EDT ,
[2024-04-17 20:57] LABS: Reflex Troponin-HS? (from REC) Y
[2024-04-17 21:57] LABS: Troponin-I HS 20 pg/mL (3.0-78.0)
[2024-04-17 22:00] VITALS: PULSE 70; RESP 16
[2024-04-17] MEDS: Ciprofloxacin 500 MG Tablet PO (22:28)
[2024-04-17 22:35] VITALS: BP 149/86; PULSE 70; RESP 16; TEMP 36.6; O2SAT 98
[2024-04-19 14:24] LABS: Pathologist Review Reviewed
== END 2024-04-17 22:35 | disposition home or self-care (01) ==
PROVIDERS: Emergency Provider Emergency Medicine; PCP Preventive Medicine Occupational Medicine; Visit Provider Emergency Medicine
DX: N39.0 Urinary tract infection, site not specified (principal); R10.9 Unspecified abdominal pain; E78.5 Hyperlipidemia, unspecified; I10 Essential (primary) hypertension; E03.9 Hypothyroidism, unspecified; Z79.82 Long term (current) use of aspirin; Z79.899 Other long term (current) drug therapy; Z86.73 Personal history of transient ischemic attack (TIA), and cerebral infarction without residual deficits
CPT/HCPCS: 71045; 74177; 80048; 81001; 84484; 85025; 87077; 87086; 87088; 87186; 93005; 99284; Q9967; A4216

== ENCOUNTER → 2024-07-30 | Outpatient (CLI) | payer MEDICARE, OTHER, SELFPAY ==
--- NOTE | 2024-07-30 09:47 | VDUE_ITS ---
Reason For Study Reason For Study: Swelling Right Proximal Left Proximal Right subclavian vein is spontaneous, widely patent, Left jugular vein is spontaneous, widely patent, phasic, with no intraluminal echogenicity noted. phasic, with no intraluminal echogenicity noted. Left subclavian vein is spontaneous, widely patent, phasic, with no intraluminal echogenicity noted. Left Arm Left axillary vein is spontaneous, patent, phasic, competent, compressible and demonstrates augmentation. Left brachial vein is compressible. Left cephalic vein is compressible. Left basilic vein is compressible. Left Lower Arm Left radial vein is compressible. Left ulnar vein is compressible. Procedure This was a unilateral left upper extremity venous doppler examination. Exam performed in department. VL/Venous Duplex US, Unilateral Interpretation Summary Deep veins of the left upper extremity are patent and compressible segmentally. There is no evidence of deep vein thrombosis. Superficial veins of the left upper extremity are patent and compressible segme ntally. There is no evidence of superficial vein thrombosis. Ordering Physician: Baldo Marsh Referring Physician: MD Baldo Lanier Performed By: Gillian Haines RVT and Student ???
== END | disposition home or self-care (01) ==
LOC: CVS 09:44
PROVIDERS: PCP Preventive Medicine Occupational Medicine; Referring Provider Surgery Plastic and Reconstructive Surgery; Visit Provider Surgery Plastic and Reconstructive Surgery
DX: M79.89 Other specified soft tissue disorders (principal); I70.92 Chronic total occlusion of artery of the extremities; I89.0 Lymphedema, not elsewhere classified
CPT/HCPCS: 93971

== ENCOUNTER 2024-08-25 06:38 | Day surgery (SDC) | payer MEDICARE, OTHER, SELFPAY ==
[2024-08-25] VITALS (7 sets, daily range): BP systolic 136–150; BP diastolic 67–80; PULSE 69; RESP 17; TEMP 36.6; O2SAT 97–98; BMI 26.9
--- NOTE | 2024-08-25 07:35 | HP.PCM.SX_ITS ---
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 Roca for chronic suppression of the disease) who presents today for left upper extremity lymphedema evaluation. Patient reports that he developed lymphedema several months after the completion axillary dissection, but that it went away, and then returned a couple of years ago and got persistently worse. He reports for the past year or so and no longer comes and goes, but his left upper extremity is persistently swollen from the hand, wrist, and distal arm. He has been working with our physical therapy team for years and has pumps and lymphedema wear, which helps but does not alleviate the problem. He has not yet had any bouts of cellulitis. Patient follows with Dr. Godfrey, and is getting a left knee replacement this month. He has been off of his CLL medication in anticipation of the surgery. Patient does not smoke. He does not have a history personally or within his family of bleeding or clotting problems. He has never had problems with anesthesia. Current encounter, 23 July 2024: Patient doing well overall after his left knee replacement with Dr. Godfrey. Patient was dealing with these orthopedic issues, but is now ready to work on the lymphedema. He has been off of his CLL medicine and is following up with Dr. Roca. He reports persistent left upper extremity lymphedema, that is not improving while using his pump and his compression garments. He follows with [facility], Occupational Therapy. He would like to continue to pursue options. Minimal improvement with elevation. He thinks it is getting worse. He has not yet had a bout of cellulitis, but is concerned about this. Current Encounter (DATE OF SURGERY H&P UPDATE): I saw and examined the patient this morning in pre-operative holding. We discussed risks and benefits of today's surgery and they would like to proceed. NO CHANGE in health history since last seen and evaluated. Ready to proceed with lymphogram [facility] Medical History History of neuropathy History of thyroid disease History of gastroesophageal reflux (GERD) History of osteoarthritis History of high cholesterol History of hypertension History of hearing problem History of glaucoma History of arthritis Infectious colitis Prerenal azotemia Lymphedema of left upper extremity Left upper extremity swelling CLL (chronic lymphocytic leukemia) Abdominal pain Recurrent right inguinal hernia Inguinal hernia Bradycardia Encounter for education Swelling of left hand NHL (non-Hodgkin's lymphoma) Seroma after procedure CLL (chronic lymphocytic leukemia) Elevated LDH Night sweats Axillary adenopathy Stroke med port removal Hypothyroidism Hypertension Hyperlipidemia Glaucoma Seasonal allergies History of non-Hodgkin's lymphoma Home Medications ?Medication ?Instructions ?Recorded ?Last Taken ?Type latanoprost 0.005 % eye drops 1 drp EACH EYE QHS Check with 03/27/15 08/24/24 History primary doctor pravastatin 80 mg tablet 80 mg PO QHS Check with prim anthony 06/15/19 08/24/24 History doctor carisoprodol 350 mg tablet 350 mg PO 4X/DAY PRN PRN Mu scle 12/23/19 Unknown History Spasm mirtazapine 30 mg tablet 30 mg PO QHS Check with prim anthony 12/23/19 08/24/24 History doctor pantoprazole 40 mg tablet,delayed 40 mg PO DAILY reflu x 11/02/20 08/24/24 History release (Protonix) ferrous sulfate 140 mg (45 mg 140 mg PO DAILY 03/05/23 08/25/24 History iron) tablet,extended release levothyroxine 88 mcg tablet 112 mcg PO DAILY Check wit h 04/02/23 08/25/24 History primary doctor aspirin 81 mg chewable tablet 81 mg PO BID Check with primary 12/31/23 08/24/24 History doctor hydralazine 100 mg tablet 100 mg PO BID 04/17/2408/24 History liothyronine 5 mcg tablet 10 mcg PO DAILY 04/17/2405/10 History losartan 100 mg tablet 100 mg PO DAILY 04/17/2406/09 History venlafaxine 150 mg 150 mg PO DAILY 04/17/2405/10 History capsule,extended release 24 hr ibrutinib 420 mg tablet 420 mg PO QDAY 30 days #30 t abs 05/24/24 08/24/24 Rx Allergy/AdvReac Type Severity Reaction Status Date / Time No Known Allergies Allergy Verified 08/25/24 06:55 Family History Mother Arthritis Hypertension Heart disease Father Hypertension Hyperlipidemia Heart disease Arthritis Sister Colon cancer Uncle Diabetes Surgical History History of bilateral knee replacement Hx of right inguinal hernia repair History of surgical procedure on eye proper using laser s/p axillary lymph node biopsy History of bilateral inguinal hernia repair Status post glaucoma surgery S/P cardiac catheterization BILATERAL SHOULDER SURGERY Hx of tonsillectomy H/O cataract extraction History of back surgery Social History household members: spouse Smoking Status: Never smoker alcohol intake: current alcohol intake frequency: a few times a month substance use type: does not use additional social history: pt denies vaping, denies marijuana use denies edibles, denies blood clotting disorder uses aspirin daily uses ibuprofen as needed Vital Signs Vital Signs Vital Signs: 08/25/24 06:59 08/25/24 06:59 Temperature 97.8 F Temperature Source Temporal Pulse Rate 69 Respiratory Rate 17 Respiratory Pattern Normal Blood Pressure 150/80 H Blood Pressure Mean 103 Blood Pressure Source Monitor Blood Pressure Position Semi-Fowlers Blood Pressure Location Left Arm Pulse Ox 97 Oxygen Delivery Method Room Air Weight Weight: 198 lb 6.656 oz Body Mass Index (BMI) 26.9 Physical Exam Narrative Left upper extremity with bulky lymphedema, Campisi stage III. Lymphedema feels firm Well-healed left axillary scar. No palpable axillary lymphadenopathy. Assessment & Plan Assessment/Plan (1) Lymphedema of left upper extremity: PLAN: Discussed risks, benefits and alternatives to lymhogram. INTERVAL H&P PLAN, DATE OF SURGERY: We will proceed with LYMPHOGRAM today.
[2024-08-25] MEDS: Lidocaine 1% (30 ml sdv) 30 ML Vial (07:50)
--- NOTE | 2024-08-25 08:47 | PCM.OPRPT ---
Operative Report (Standard) Operative Information Date of Procedure: 08/25/24 Pre-Operative Diagnosis: Left upper extremity lymphedema Post-Operative Diagnosis: Same Surgery/Procedure Performed: Indocyanine green lymphography (ICGL) of LEFT UPPER EXTREMITY (CPT 43968) artificial glass eye maker: No Type of Anesthesia: Local (3 cc of 1% lidocaine ) RN Documented Start/Stop Times: Operation Date: 08/25/24 07:30 Case Time Into Pre-Op 08/25/24 06:45 Out of Pre-Op 08/25/24 07:39 Into Room 08/25/24 07:41 Procedure Start 08/25/24 07:50 Procedure End 08/25/24 08:10 Out of Room 08/25/24 08:16 Into Phase II Recovery 08/25/24 08:18 Out of Phase II 08/25/24 08:31 Procedure Start Time: 07:50 Procedure Stop Time: 08:10 Select all DRAINS/GRAFTS/IMPLANTS that apply: None Estimated Blood Loss: none Specimen collected: No Description of surgery: PROCEDURE: Indocyanine green lymphography (ICGL) of LEFT UPPER EXTREMITY (CPT 64626) Last ICGL date: ICGL niave ? 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 ICG lymphography was offered for definitive diagnosis and severity staging.?? The rational, alternatives, the risks and benefits of the proposed procedure were thoroughly discussed.? The patient expressed clearly understanding of what discussed.? A consent form was signed. ? TECHNIQUE: The patient was taken to the operating room and placed in supine position.? 0.25% indocyanine green solution was injected, 0.1 cc per injection site, with a total of 0.4 cc injected. ? Injections sites: LEFT Hand- webspaces (two) ?- Radial and ulnar side of wrist Scanning was performed with SPY machine. FINDINGS: Grading of [facility] Stage 4 with no obvious patent lymphatic vessels and extensive dermal backflow in the dorsal hand. There was extensive stardust patterns in the dorsal hand. In the radial and volar forearm, there was one area with reticular patterns. IMMEDIATE SCAN (3 minutes) Reach of ICG: To the middle of the forearm Number of linear channels: 0 obvious forearm channels at 3 min (small and poorly defined channels after 20 min seen, but limited) Orientation of the linear channels: N/A Any reticular (tortuous) channels: only on radial forearm after 20 min Any collaterals: No Dermal backflow: Yes, in the hand Improved as compared to the last scan?: N/A What improved?: N/A Surgical Findings: Hand after 3 min RADIAL FOREARM after 20 min (nothing in the forearm after 3 min) Complications Complications: No
== END 2024-08-25 08:30 | disposition home or self-care (01) ==
LOC: SDC 06:40 → AC 06:42
PROVIDERS: PCP Preventive Medicine Occupational Medicine; Referring Provider Surgery Plastic and Reconstructive Surgery; Visit Provider Surgery Plastic and Reconstructive Surgery
PROC: (CPT 38790; principal; 2024-08-25 07:20)
DX: I89.0 Lymphedema, not elsewhere classified (principal); C91.10 Chronic lymphocytic leukemia of B-cell type not having achieved remission; E78.00 Pure hypercholesterolemia, unspecified; K21.9 Gastro-esophageal reflux disease without esophagitis; I10 Essential (primary) hypertension; E03.9 Hypothyroidism, unspecified; Z80.0 Family history of malignant neoplasm of digestive organs; Z79.82 Long term (current) use of aspirin; Z79.899 Other long term (current) drug therapy
CPT/HCPCS: 38790; 75801

== ENCOUNTER 2024-09-26 05:36 | Emergency (ER) | payer MEDICARE, OTHER, SELFPAY ==
[2024-09-26 05:37] VITALS: BP 157/72; PULSE 78; RESP 16; TEMP 36.4; O2SAT 98; BMI 26.4
--- NOTE | 2024-09-26 05:39 | EKG12_ITS ---
Test Reason : CP Blood Pressure : */* mmHG Vent. Rate : 75 BPM Atrial Rate : 75 BPM P-R Int : 214 ms QRS Dur : 70 ms QT Int : 384 ms P-R-T Axes : 51 6 42 degrees QTcB Int : 428 ms Sinus rhythm with 1st degree A-V block Nonspecific T wave abnormality Abnormal ECG When compared with ECG of 17-Apr-2024 18:24, Nonspecific T wave abnormality, worse in Lateral leads Confirmed by Francis Burger ([id number]), copy editor BALA SANDERSON ([id number]) on 09/29/2024 10:05:48 AM Referred By: Confirmed By: Francis Burger
--- NOTE | 2024-09-26 05:39 | ED.VIS.CHEST ---
HPI History of Present Illness Chief Complaint: Chest Pain [facility] Medical History (Updated 09/26/24 @ 07:[address] Aung Dominique, DO) History of stress test Wears hearing aid Wears glasses Cancer Arthritis Anemia High cholesterol Easy bruising Excessive bleeding History of leukemia TIA (transient ischemic attack) Non-smoker Cardiology follow-up encounter History of rheumatic fever History of neuropathy History of thyroid disease History of gastroesophageal reflux (GERD) History of osteoarthritis History of high cholesterol History of hypertension History of hearing problem History of glaucoma History of arthritis Infectious colitis Prerenal azotemia Lymphedema of left upper extremity Left upper extremity swelling CLL (chronic lymphocytic leukemia) Abdominal pain Recurrent right inguinal hernia Inguinal hernia Bradycardia Encounter for education Swelling of left hand NHL (non-Hodgkin's lymphoma) Seroma after procedure CLL (chronic lymphocytic leukemia) Elevated LDH Night sweats Axillary adenopathy Stroke med port removal Hypothyroidism Hypertension Hyperlipidemia Glaucoma Seasonal allergies History of non-Hodgkin's lymphoma Home Medications ?Medication ?Instructions ?Recorded ?Last Taken ?Type latanoprost 0.005 % eye drops 1 drp EACH EYE QHS Check with 03/27/15 08/24/24 History primary doctor pravastatin 80 mg tablet 80 mg PO QHS Check with primary 06/15/19 08/24/24 History doctor carisoprodol 350 mg tablet 350 mg PO 4X/DAY PRN PRN Muscle 12/23/19 Unknown History Spasm mirtazapine 30 mg tablet 30 mg PO QHS Check with primary 12/23/19 08/24/24 History doctor pantoprazole 40 mg tablet,delayed 40 mg PO DAILY reflux 11/02/20 08/24/24 History release (Protonix) ferrous sulfate 140 mg (45 mg 140 mg PO DAILY 03/05/23 08/25/24 History iron) tablet,extended release aspirin 81 mg chewable tablet 81 mg PO DAILY Check with primary 12/31/23 09/22/24 History Held on 09/26/24. doctor Instructions: procedure hydralazine 100 mg tablet 100 mg PO BID 04/17/24 08/24/24 History liothyronine 5 mcg tablet 10 mcg PO DAILY 04/17/24 08/24/24 History losartan 100 mg tablet 100 mg PO DAILY 04/17/24 08/25/24 History venlafaxine 150 mg 150 mg PO DAILY 04/17/24 08/24/24 History capsule,extended release 24 hr ibrutinib 420 mg tablet 420 mg PO QDAY 30 days #30 tabs 05/24/24 09/22/24 Rx levothyroxine 100 mcg tablet 100 mcg PO DAILY 09/26/24 Unknown History sucralfate 1 gram tablet (Carafate) 1 g PO BID PRN reflux #14 tabs 09/26/24 Unknown Rx Allergy/AdvReac Type Severity Reaction Status Date / Time No Known Allergies Allergy Verified 09/26/24 05:37 Family History Mother Arthritis Hypertension Heart disease Father Hypertension Hyperlipidemia Heart disease Arthritis Sister Colon cancer Uncle Diabetes Surgical History (Updated 09/22/24 @ 08:23 by Ysabel Molina) History of cardiac catheterization Hx of hernia repair History of bilateral knee replacement Hx of right inguinal hernia repair History of surgical procedure on eye proper using laser s/p axillary lymph node biopsy History of bilateral inguinal hernia repair Status post glaucoma surgery S/P cardiac catheterization BILATERAL SHOULDER SURGERY Hx of tonsillectomy H/O cataract extraction History of back surgery Social History household members: spouse Smoking Status: Never smoker alcohol intake: current alcohol intake frequency: a few times a month substance use type: does not use additional social history: pt denies vaping, denies marijuana use denies edibles, denies blood clotting disorder uses aspirin daily uses ibuprofen as needed EXAM Physical Exam Const Vital Signs: 09/26/24 05:37 09/26/24 05:37 09/26/24 06:37 Temperature 97.5 F L Temperature Source Oral Pulse Rate 78 73 Respiratory Rate 16 19 H Respiratory Effort Short of Breath Blood Pressure 157/72 H 156/75 H Blood Pressure Mean 100 102 Pulse Ox 98 95 Oxygen Delivery Method Room Air Room Air 09/26/24 07:00 Temperature Temperature Source Pulse Rate 71 Respiratory Rate 18 Respiratory Effort Blood Pressure 156/80 H Blood Pressure Mean 105 Pulse Ox 96 Oxygen Delivery Method Room Air MDM MDM MDM Narrative Medical decision making narrative: HISTORY OF PRESENT ILLNESS: Chief complaint: 79-year-old male history of CLL, non-Hodgkin's lymphoma, hypertension, GERD, hyperlipidemia, anemia, inguinal hernia cardiac catheterization, presents with abdominal pain. Notes this began yesterday. Describes as burning. Notes radiates to the chest and back. Notes difficult for him to take a deep breath. States he cannot sleep secondary not be able to take a deep breath. Notes history of cancer and currently on oral chemotherapy otherwise denies any VTE risk factors. Denies any bleeding diathesis. Denies family presence of connective tissue diseases. The pain is not described as ripping or tearing. He denies any focal neurologic deficits. REVIEW OF SYSTEMS: Pertinent positives: Abdominal pain, shortness of breath, chest pain and back pain Pertinent negatives: Syncope, focal weakness PHYSICAL EXAM: Nursing triage notes reviewed, Vital signs reviewed Constitutional: please see [facility] HENT: MMM Eyes: Pupils equal round and reactive to light, Extraocular muscles intact Neck: No stridor, no JVD, full neck ROM Lungs: Clear to auscultation, No wheezing or rales. No increased work of breathing, no conversational dyspnea, no accessory muscle use, no nasal flaring. No respiratory distress noted Heart: Regular rate and rhythm, No murmurs, No rubs and No gallops, 2+ distal pulses (radial, femoral, posterior tibial) in all extremities Abdomen: Soft, there is no tenderness, rigidity, rebound or guarding, no obvious peritoneal signs, no palpable pulsatile abdominal masses, no auscultated abdominal bruit : No CVAT Extremities: Chronic lymphedema noted in left upper extremity. Neuro: No new focal neurological deficits, no lateralizing signs, cranial nerves II through XII intact, 5/5 strength in all present extremities. Intact sensation to light touch in all present extremities, 2+ reflexes bilateral patella tendons. Skin: No rash or lesions noted MEDICAL DECISION MAKING: Chief Complaint: please see [facility] External records reviewed: Reviewed prior imaging studies: Reviewed CT scan abdomen pelvis from April 2024 IMPRESSION: No acute findings in the abdomen or pelvis. Overall progression of retroperitoneal, mesenteric and pelvic adenopathy consistent with lymphoproliferative disorder. Factors affecting care: as per HPI Social determinants of health: none History obtained from others: none Consults: none [facility] Narrative: Patient was initially hemodynamically stable (slightly hypertensive with a blood pressure 157/72), afebrile and nontoxic-appearing. Exam grossly unremarkable. Heart lungs are clear. No wheezing. No increased work of breathing. No murmurs. No JVD. No pulse deficits. No focal neurologic deficits. Abdomen is soft and nontender. I considered the following differential diagnosis: Aortic dissection, ACS, arrhythmia, anemia, acute pancreatitis, acute surgical intra-abdominal abnormality, worsening metastatic burden I obtained a broad lab and imaging workup to further elucidate etiology of the patient's complaints. The patient was initially treated with IV Pepcid, Carafate and GI cocktail as the burning nature of his pain was reminiscent of a GI etiology ALL IMAGES (IF OBTAINED) HAVE BEEN PERSONALLY REVIEWED AND INTERPRETED BY MYSELF. EKG with normal sinus rhythm, rate 75, normal axis, prolonged interval, prescribed block, no obvious STEMI CBC with leukocytosis suggestive of systemic inflammation, no anemia or thrombocytopenia noted Initial troponin negative will send delta CMP without evidence of acute kidney injury, significant electrolyte abnormality, anion gap to suggest end organ hypo-perfusion, no evidence of metabolic acidosis with a normal bicarbonate, no evidence of hepatobiliary obstructive pathology. Lipase is wnl indicating no pancreatic inflammation. Walking pulse ox stayed stable at 95%. On reevaluation patient's vital signs remained stable. Noted some symptomatic relief after GI targeted therapies. Currently awaiting labs delta troponin Currently awaiting final read CT of the chest/abdomen/pelvis Signed out to a.m. physician pending labs images and final disposition The patient and/or family, caregivers express understanding. The patient and/or family, caregivers agrees with the plan. Shared decision making: I will have a discussion with the patient and or visitors regarding risk/benefits of further testing or admission. They will be made aware of of the risk/benefits inherent in this decision they will be given the opportunity to voice understanding. Total critical care time today provided was at least 0 minutes. This excludes separately billable procedures. Critical care time (if documented) is secondary to the patient having high probability of clinically significant/life threatening deterioration in the patient's condition which required my urgent intervention. Impression: 1. Chest pain 2. Abdominal pain 3. Shortness of breath 4. History of CLL 5. History of non-Hodgkin's lymphoma Dispo: Signed out to a.m. physician pending labs and imaging studies This note was generated with [employer] dictation software. It may contain incorrect words, spelling, and punctuation that were not noted in review of the chart prior to signing. Lab Data Labs: Laboratory Results - last 24 hr 09/26/24 05:44 WBC 17.9 H RBC 4.72 Hgb 13.7 Hct 41.2 MCV 87.3 MCH 29.0 MCHC 33.3 RDW Std Deviation 51.4 H RDW Coeff of Deborah 15.9 H Plt Count 143 L MPV 11.8 Sodium 138 Potassium 3.8 Chloride 101 Carbon Dioxide 22.0 Anion Gap 15 BUN 14 Creatinine 1.13 Estim Creat Clear Calc 59.13 Est GFR (MDRD) Non-Af 67 BUN/Creatinine Ratio 12.2 Glucose 125 H Calcium 9.9 Total Bilirubin 1.24 AST 29 ALT 14 Alkaline Phosphatase 93 Troponin T High Sens 50 H Total Protein 6.1 Albumin 4.2 Globulin 1.9 L Albumin/Globulin Ratio 2.2 Lipase 10 L Discharge Plan Triage Chief Complaint: Chest Pain Other Complaint: Abd Pain ED Provider: Aung Dominique Dx/Rx/DC Orders Clinical Impression: Chest pain, GERD (gastroesophageal reflux disease) Instructions: ED Dyspnea, ED GERD (Adult) Prescriptions: New sucralfate [Carafate] 1 gram tablet 1 g PO BID PRN (Reason: reflux) Qty: 14 0RF No Action pantoprazole [Protonix] 40 mg tablet,delayed release (DR/EC) 40 mg PO DAILY aspirin 81 mg tablet,chewable 81 mg PO DAILY Patient Comments: HOLD 2 WEEKS PRIOR TO PROCEDURE ferrous sulfate 140 mg (45 mg iron) tablet extended release 140 mg PO DAILY Rx Instructions: 45mg oral tablet (elemental iron) latanoprost 2.5 ML drops 1 drp EACH EYE QHS Patient Comments: EACH EYE carisoprodol 350 MG tablet 350 mg PO 4X/DAY PRN PRN (Reason: Muscle Spasm) mirtazapine 30 MG tablet 30 mg PO QHS pravastatin 80 MG tablet 80 mg PO QHS hydralazine 100 mg tablet 100 mg PO BID liothyronine 5 mcg tablet 10 mcg PO DAILY venlafaxine 150 mg capsule,extended release 24hr 150 mg PO DAILY losartan 100 mg tablet 100 mg PO DAILY levothyroxine 100 mcg tablet 100 mcg PO DAILY ibrutinib 420 mg tablet 420 mg PO QDAY 30 Days Qty: 30 11RF Patient Comments: STOP 2 WEEKS PRIOR TO SURGERY Primary Care Provider: Baldo Lanier Referrals: Friend,DO Keith [Med Staff - Active Staff] - Activity Restrictions/Additional Instructions: Thank you for trusting us with your care today! Your labs and images are reassuring. Your presentation is likely secondary to inflammation of your GI tract. Please continue take pantoprazole. Please take Carafate as needed for additional relief. Please take Tylenol (2 pills, 650 mg), every 6 hours as needed for pain and fever control. Please return to the emergency department if your symptoms change or worsen. Please follow with Gastroenterology (Dr. Aguirre) for further outpatient evaluation and management. Print Language: Maori Disposition Disposition: Home, Self Care
[2024-09-26] MEDS: Lidocaine 2% Viscous15 ML UDC 15 ML PO (05:57)
[2024-09-26] MEDS: Mag Hydrox/Al Hydrox/Simeth 30 ML UDC PO (05:57)
[2024-09-26 06:02] LABS: Hematocrit 41.2 % (40-54); Hemoglobin 13.7 g/dL (13.0-16.5); Mean Corp Hgb Conc 33.3 g/dL (32-36); Mean Corpuscular Volume 87.3 fL (80-94); Mean Platelet Vol. 11.8 fl (6.2-12.0); Platelet Count 143 K/mm3 (150-450); RBC Distribution Width CV 15.9 % (11.6-14.6); RBC Distribution Width SD 51.4 fl (35.1-43.9); Red Blood Count 4.72 M/mm3 (4.6-6.2); White Blood Count 17.9 K/mm3 (4.4-11.0)
--- NOTE | 2024-09-26 06:04 | CT_ITS ---
PROCEDURE: CTA CHST, ABD, PEL W AND/OR WO 09/26/2024 REASON FOR EXAM: CHEST PAIN RADIATING TO THE BACK R/O DISSECTION TECHNIQUE: Chest abdomen and pelvis CT with intravenous contrast. Coronal and Sagittal reconstruction series were provided. One or more dose reduction techniques were used (e.g., Automated exposure control, adjustment of the mA and/or kV according to patient size, use of iterative reconstruction technique. PATIENT PREPARATION: Per protocol CONTRAST: Isovue 370 VOLUME: 100 ML RADIATION DOSE SUMMARY: CTDlvol: 25 mGy DLP: 119.2 mGycm FINDINGS: The trachea and central bronchial tree are patent. There is no pleural pericardial effusion. The heart is normal in size. There are coronary artery calcifications present. The pulmonary artery appears normal in size and caliber. There is no large filling defect to suggest pulmonary arterial embolism. Scattered atheromatous calcification seen within the aorta and its branches the aorta is normal in size and caliber. There is no evidence of aortic dissection and aneurysm. There is no pneumothorax. Irregular airspace opacity seen within the left upper lobe measuring up to 5 x 3.5 cm (image 87/272). There are streaky changes at the lung bases could represent scarring versus atelectasis. There is no free air within the abdomen and pelvis. The liver, gallbladder, spleen, adrenals are within normal limits. There is fatty infiltration of the pancreas. There are bilateral renal Extensive adenopathy is noted throughout the mediastinum and bilateral axillary regions. This adenopathy extends throughout the retroperitoneum abdomen and pelvis. These findings is consistent with diffuse metastatic disease. Within the mediastinum there are large lymph node measuring up to 4 cm just inferior and posterior to the inocente (image 76/272). A right supraclavicular lymph node measures up to 5.7 cm (image 22/272) a left axillary lymph node measures up to 3 cm (image 44/272. There are innumerable lymph nodes within the abdomen or retroperitoneum. Data Technical Lead lymph nodes seen within the right retroperitoneum measuring up to 6.3 cm on image 154/272 a renewals representative lymph node within the right pelvis measures up to 5.4 cm (image 226/272). This lymph node exerts mass effect on the urinary bladder. The prostate is borderline prominent. There are prostatic brachytherapy seeds present. There are bladder diverticulum anteriorly (image 213/272). Extensive sigmoid diverticulosis is present without CT evidence for acute diverticulitis. Moderate amount of stool is seen throughout the colon. There is no bowel obstruction. Tubular structure seen within the right lower quadrant likely to represent the appendix appeared normal (image 195/272). No abnormal free fluid is seen within the abdomen and pelvis. Extensive degenerative changes seen within the spine. This is worse at L1-2 and L2-3. No vertebral compression fracture is present. CT/CTA Chst, Abd, Pel W and/or WO IMPRESSION: Innumerable lymph nodes seen throughout the chest, abdomen and pelvis. These l ymph nodes represent diffuse metastatic disease. These lymph nodes measure greater than 4 cm in the chest and greater than 6 cm in the abdomen/pelvis. Further metastatic workup and tissue sampling is recommended at this time. 5 cm irregular airspace opacity within the left upper lobe. This may be assess ed on follow-up PET imaging. No evidence of aortic dissection. No definite filling defect to suggest pulmon anthony arterial embolism. Reading Location: [id number]
[2024-09-26] MEDS: Famotidine 200 MG/20 ML MDV 20 MG in 0.9% Normal Saline (Pres. free 8 ML 300 MG IV (06:23)
[2024-09-26] MEDS: Sucralfate 1 GM Tablet PO (06:23)
[2024-09-26 06:37] VITALS: BP 156/75; PULSE 73; RESP 19; O2SAT 95
[2024-09-26 06:45] VITALS: O2SAT 95
[2024-09-26 06:54] LABS: Troponin T High Sensitivity 50 ng/L (<=22)
[2024-09-26 06:55] LABS: ALB/GLOB Ratio 2.2 RATIO (0.9-2.4); AST(SGOT) 29 U/L (<=37); Alanine Aminotransfer ALT/SGPT 14 U/L (<=46); Albumin, Serum 4.2 g/dL (3.4-4.8); Alkaline Phosphatase 93 U/L (40-129); Anion Gap 15 (5-15); BUN 14 mg/dL (4-19); BUN/Creat Ratio 12.2 RATIO (10-20); Calcium,Total 9.9 mg/dL (7.6-11.0); Chloride 101 mmol/L (98-108); Creatinine, Serum 1.13 mg/dL (0.70-1.20); EST Glomerular Filtration Rate 67 (>60); Estimated Creatinine Clearance 59.13 ml/min (50-250); Globulin 1.9 g/dL (2.2-4.2); Glucose 125 mg/dL (70-99); Lipase 10 U/L (13-75); Potassium 3.8 mmol/L (3.3-5.1); Protein, Total 6.1 g/dL (5.9-8.4); Sodium Level 138 mmol/L (133-145); Total Bilirubin 1.24 mg/dL (0.00-1.30)
[2024-09-26 07:00] VITALS: BP 156/80; PULSE 71; RESP 18; O2SAT 96
[2024-09-26 08:00] VITALS: BP 154/76; PULSE 74; RESP 18; O2SAT 96
[2024-09-26 08:21] LABS: Troponin T High Sens 2 HR 43 ng/L (<=22)
[2024-09-26 08:53] VITALS: BP 154/76; PULSE 71; RESP 14; TEMP 36.6; O2SAT 95
== END 2024-09-26 08:54 | disposition home or self-care (01) ==
PROVIDERS: Emergency Provider Emergency Medicine; PCP Preventive Medicine Occupational Medicine; Visit Provider Emergency Medicine
DX: R07.9 Chest pain, unspecified (principal); K21.9 Gastro-esophageal reflux disease without esophagitis; R10.9 Unspecified abdominal pain; Z79.82 Long term (current) use of aspirin; Z79.899 Other long term (current) drug therapy; Z86.73 Personal history of transient ischemic attack (TIA), and cerebral infarction without residual deficits
CPT/HCPCS: 71275; 74174; 80053; 83690; 84484; 85027; 93005; Q9967; A4216

== ENCOUNTER 2024-09-26 15:21 | Inpatient (IN) | payer MEDICARE, OTHER, SELFPAY ==
[2024-09-26] VITALS (7 sets, daily range): BP systolic 150–184; BP diastolic 80–98; PULSE 70–78; RESP 15–18; TEMP 36.2–36.4; O2SAT 95–98; BMI 27.2
[2024-09-26 15:57] LABS: Hematocrit 41.1 % (40-54); Hemoglobin 13.9 g/dL (13.0-16.5); Mean Corp Hgb Conc 33.8 g/dL (32-36); Mean Corpuscular Hgb 29.1 pg (27.0-32.0); Mean Corpuscular Volume 86.2 fL (80-94); Mean Platelet Vol. 11.3 fl (6.2-12.0); POSITIVE COUNT YES; POSITIVE DIFFERENTIAL YES; POSITIVE MORPHOLOGY YES; Platelet Count 132 K/mm3 (150-450); RBC Distribution Width SD 50.2 fl (35.1-43.9); Red Blood Count 4.77 M/mm3 (4.6-6.2); White Blood Count 18.7 K/mm3 (4.4-11.0)
[2024-09-26] MEDS: 0.9% Normal Saline (1000mL) 1,000 ML 999 ML IV (15:58)
[2024-09-26] MEDS: Morphine 4 MG/ML Syringe IV ×2 (15:58→17:51)
[2024-09-26] MEDS: Ondansetron 4 MG/2 ML Vial IV (15:58)
[2024-09-26 15:59] LABS: Mucous, Urine 0 SEEN /hpf (<or=2+)
--- NOTE | 2024-09-26 16:01 | EX.ED.DYSGE1 ---
HPI History of Present Illness Chief Complaint: Abd Pain Narrative Narrative: Chief complaint and HPI: 79-year-old male with history of CLL, non-Hodgkin's lymphoma, HTN, GERD, HLD, anemia, history of hernia repairs presents for evaluation of lower abdominal pain. Onset of symptoms was yesterday around 10 AM. Patient describes the pain as burning and constant. He was seen in our emergency department early this morning for same complaint. At that time he states that it radiated into his chest and back with associated shortness of breath. He states these symptoms have since resolved and it has remained in his lower abdomen. He takes oral chemotherapy however has been off of it since Friday due to a planned surgery for his lymphedema of his left upper extremity. He denies any fever, chills, URI symptoms, cough, emesis, diarrhea, constipation, dysuria. States he does have nausea. Patient was prescribed Carafate in which he took this earlier today without improvement. He presents stating that the pain has not improved. Review of systems: See HPI Medications: As listed on the chart Allergies: As listed on the chart PFSH: Per chart Vital signs: As listed on the chart. Reviewed. Physical exam: Gen: A&O x3, NAD Head: Normocephalic, atraumatic Eyes: No sclera icterus, conjunctiva clear ENT: Moist mucous membranes Neck: Trachea midline, No JVD CV: RRR, no murmurs, no peripheral edema Resp: Lungs CTA BL, no w/r/c GI: Abd soft, non-distended, non-tender, no r/r/g, no pulsatile mass : No CVA tenderness. Circumcised penis. No penile tenderness or discharge. No penile or testicular swelling. Normal lie and position of the testicles. No testicular tenderness, masses, or skin changes. No rashes. Musc: Full ROM, no deformity Skin: Warm, dry Neuro: Alert, oriented, grossly intact, sensation intact Psych: Cooperative, appropriate mood and affect [facility] Medical History (Updated 09/26/24 @ 17:[address] Parbhakar Soria, ) Abdominal pain History of stress test Wears hearing aid Wears glasses Cancer Arthritis Anemia High cholesterol Easy bruising Excessive bleeding History of leukemia TIA (transient ischemic attack) Non-smoker Cardiology follow-up encounter History of rheumatic fever History of neuropathy History of thyroid disease History of gastroesophageal reflux (GERD) History of osteoarthritis History of high cholesterol History of hypertension History of hearing problem History of glaucoma History of arthritis Infectious colitis Prerenal azotemia Lymphedema of left upper extremity Left upper extremity swelling CLL (chronic lymphocytic leukemia) Recurrent right inguinal hernia Inguinal hernia Bradycardia Encounter for education Swelling of left hand NHL (non-Hodgkin's lymphoma) Seroma after procedure CLL (chronic lymphocytic leukemia) Elevated LDH Night sweats Axillary adenopathy Stroke med port removal Hypothyroidism Hypertension Hyperlipidemia Glaucoma Seasonal allergies History of non-Hodgkin's lymphoma Home Medications ?Medication ?Instructions ?Recorded ?Last Taken ?Type latanoprost 0.005 % eye drops 1 drp EACH EYE QHS Check with 03/27/15 09/25/24 History primary doctor pravastatin 80 mg tablet 80 mg PO QHS Check with primary 06/15/19 09/24/24 History doctor carisoprodol 350 mg tablet 350 mg PO 4X/DAY PRN Muscle Spasm 12/23/19 Unknown History mirtazapine 30 mg tablet 30 mg PO QHS Check with primary 12/23/19 09/24/24 History doctor pantoprazole 40 mg tablet,delayed 40 mg PO DAILY reflux 11/02/20 09/25/24 History release (Protonix) ferrous sulfate 140 mg (45 mg 140 mg PO DAILY 03/05/23 09/24/24 History iron) tablet,extended release aspirin 81 mg chewable tablet 81 mg PO DAILY Check with primary 12/31/23 09/22/24 History Held on 09/26/24. doctor Instructions: procedure hydralazine 100 mg tablet 100 mg PO BID 04/17/24 09/24/24 History liothyronine 5 mcg tablet 10 mcg PO DAILY 04/17/24 09/25/24 History losartan 100 mg tablet 100 mg PO DAILY 04/17/24 09/24/24 History venlafaxine 150 mg 150 mg PO DAILY 04/17/24 09/24/24 History capsule,extended release 24 hr ibrutinib 420 mg tablet 420 mg PO QDAY 30 days #30 tabs 05/24/24 09/22/24 Rx Held on 09/26/24. Instructions: Ordered ammonium lactate 12 % lotion 1 applic topical BID 09/26/24 09/24/24 History levothyroxine 100 mcg tablet 100 mcg PO DAILY 09/26/24 09/25/24 History sucralfate 1 gram tablet (Carafate) 1 g PO BID PRN reflux #14 tabs 09/26/24 Unknown Rx Allergy/AdvReac Type Severity Reaction Status Date / Time No Known Allergies Allergy Verified 09/26/24 15:26 Family History Mother Arthritis Hypertension Heart disease Father Hypertension Hyperlipidemia Heart disease Arthritis Sister Colon cancer Uncle Diabetes Surgical History History of cardiac catheterization Hx of hernia repair History of bilateral knee replacement Hx of right inguinal hernia repair History of surgical procedure on eye proper using laser s/p axillary lymph node biopsy History of bilateral inguinal hernia repair Status post glaucoma surgery S/P cardiac catheterization BILATERAL SHOULDER SURGERY Hx of tonsillectomy H/O cataract extraction History of back surgery Social History (Updated 09/26/24 @ 15:26 by Nicolasa Conner) household members: spouse housing: house Smoking Status: Never smoker alcohol intake: current alcohol intake frequency: a few times a month substance use type: does not use additional social history: pt denies vaping, denies marijuana use denies edibles, denies blood clotting disorder uses aspirin daily uses ibuprofen as needed EXAM Physical Exam Const Vital Signs: 09/26/24 15:22 09/26/24 17:13 09/26/24 17:14 Temperature 97.6 F L 97.6 F L 97.6 F L Temperature Source Oral Oral Pulse Rate 78 78 78 Respiratory Rate 16 16 16 Blood Pressure 177/83 H 177/83 H 184/89 H Blood Pressure Mean 114 114 120 Pulse Ox 98 98 98 Oxygen Delivery Method Room Air Room Air MDM MDM MDM Narrative Medical decision making narrative: 79-year-old male with history of CLL, non-Hodgkin's lymphoma, HTN, GERD, HLD, anemia, history of hernia repairs presents for evaluation of lower abdominal pain. Onset of symptoms was yesterday around 10 AM. He was seen in our emergency department early this morning for same complaint. At that time he states that it radiated into his chest and back with associated shortness of breath. He states these symptoms have since resolved and it has remained in his lower abdomen. Patient had CTA chest, abdomen, pelvis performed that showed innumerable lymph nodes seen throughout the chest, abdomen, pelvis represents diffuse metastatic disease. There is a 5 cm irregular airspace opacity within the left upper lobe. Recommended follow-up with PET scan. No evidence of aortic dissection. Laboratory workup was reviewed. Patient did not have a urine obtained. Differential diagnosis includes but is not limited to symptomatic lymphoma, UTI, electrolyte abnormality, gastroenteritis. Given patient just had a CT chest, abdomen, pelvis performed earlier this morning I do not think any imaging is needed. NS bolus, Zofran, morphine ordered. Laboratory workup ordered including urine. CBC shows leukocytosis of 18.7. This is uptrending from 17.9. No anemia. Patient has baseline thrombocytopenia. CMP unremarkable except for mild dehydration without KATINA. Lipase unremarkable. UA positive for UTI. Urine culture obtained. Rocephin ordered. On reevaluation, patient still endorsing intractable abdominal pain. Morphine ordered. Given patient's leukocytosis, intractable abdominal pain, and history of lymphoma I do feel that patient would benefit from admission. Patient was discussed with the hospitalist service who accepted admission. They did speak with oncology who feels that the symptoms may be secondary to his lymph nodes being off of chemotherapy. This may be also the cause of his white count. Impression: 1. Intractable abdominal pain 2. Cystitis 3. History of CLL and non-Hodgkin's lymphoma Lab Data Labs: Laboratory Results - last 24 hr 09/26/24 09/26/24 15:32 15:54 WBC 18.7 H RBC 4.77 Hgb 13.9 Hct 41.1 MCV 86.2 MCH 29.1 MCHC 33.8 RDW Std Deviation 50.2 H RDW Coeff of Deborah 16.0 H Plt Count 132 L MPV 11.3 Neut % (Auto) Not Reportable Absolute Neuts (auto) 11.6 H Absolute Lymphs (auto) 1.12 Total Counted 100 Neutrophils % (Manual) 60 Band Neutrophils % 2 Lymphocytes % (Manual) 6 L Monocytes % (Manual) 30 H Metamyelocytes % 1 Myelocytes % 1 H Differential Comment SEE COMMENT Diff Path Review May foll Platelet Estimate SLT DEC RBC Morphology N CHROM Anisocytosis RARE Macrocytosis RARE Ovalocytes RARE Sodium 136 Potassium 3.8 Chloride 100 Carbon Dioxide 20.7 L Anion Gap 16 H BUN 14 Creatinine 1.15 Est GFR (MDRD) Non-Af 65 BUN/Creatinine Ratio 12.2 Glucose 135 H Calcium 9.6 Total Bilirubin 1.08 AST 32 ALT 13 Alkaline Phosphatase 94 Total Protein 6.1 Albumin 4.1 Globulin 1.9 L Albumin/Globulin Ratio 2.1 Lipase 10 L Urine Color Yellow Urine Clarity Cloudy Urine pH 6.5 Ur Specific [place] 1.010 Urine Protein 100 H Urine Glucose (UA) Normal Urine Ketones 5 H Urine Occult Blood 250 H Urine Nitrite Positive H Urine Bilirubin 1 H Urine Urobilinogen 1 H Ur Leukocyte Esterase 25 H Urine RBC > 100 SEEN Urine WBC 5-10 SEEN Ur Squamous Epith Cells 0-5 SEEN Amorphous Sediment 1+ URATE Urine Bacteria 1+ Urine Mucus 0 SEEN Discharge Plan Disposition Disposition: Acute Care Hospital [facility] Discharge Date/Time: 09/26/24 18:25
[2024-09-26 16:03] LABS: Color, Urine Yellow (Yellow); Glucose, Dipstick Normal (Normal); Ketone-Dipstick 5 mg/dl (Negative); Leukocyte Esterase-Dipstick 25 /ul (Negative); Nitrite-Dipstick Positive (Negative); Occult Blood-Urine 250 /ul (Negative); Protein-Dipstick 100 mg/dl (Negative); Urine Clarity Cloudy (Clear); Urine Urobilinogen 1 mg/dl (Normal); Urine pH 6.5 (5.0 - 8.0)
[2024-09-26 16:10] LABS: Urine Bilirubin Dipstick 1 mg/dL (Negative)
[2024-09-26 16:11] LABS: Red Blood Cells-Urine > 100 SEEN /hpf (0-5); Squamous Epithelial Cells - UA 0-5 SEEN /hpf (0-5); White Blood Cells 5-10 SEEN /hpf (0-5)
[2024-09-26 16:12] LABS: Amorphous Sediment 1+ URATE; Bacteria 1+ /hpf (None Seen)
[2024-09-26 16:16] LABS: Differential Indicated MANUAL DIFF
[2024-09-26 16:34] LABS: ALB/GLOB Ratio 2.1 RATIO (0.9-2.4); AST(SGOT) 32 U/L (<=37); Alanine Aminotransfer ALT/SGPT 13 U/L (<=46); Albumin, Serum 4.1 g/dL (3.4-4.8); Alkaline Phosphatase 94 U/L (40-129); Anion Gap 16 (5-15); BUN 14 mg/dL (4-19); BUN/Creat Ratio 12.2 RATIO (10-20); Calcium,Total 9.6 mg/dL (7.6-11.0); Carbon Dioxide 20.7 mmol/L (21.0-32.0); Chloride 100 mmol/L (98-108); Creatinine, Serum 1.15 mg/dL (0.70-1.20); EST Glomerular Filtration Rate 65 (>60); Globulin 1.9 g/dL (2.2-4.2); Glucose 135 mg/dL (70-99); Lipase 10 U/L (13-75); Potassium 3.8 mmol/L (3.3-5.1); Protein, Total 6.1 g/dL (5.9-8.4); Sodium Level 136 mmol/L (133-145); Total Bilirubin 1.08 mg/dL (0.00-1.30)
[2024-09-26 16:49] LABS: Lymphocyte 6 % (19-41); Metamyelocyte 1 % (0-1); Monocyte 30 % (0-10); Myelocyte 1 % (0-0); Neutrophil-Band 2 % (0-5); Neutrophil-Segmented 60 % (47-70); Total Cells Counted 100 (MANUAL DIFF)
[2024-09-26 16:52] LABS: Absolute Lymphocyte Count 1.12 X10^3/uL (0.83-4.51); Absolute Neutrophil Count 11.6 X10^3/uL (2.0-7.7)
[2024-09-26 16:53] LABS: Anisocytosis RARE; Macrocytosis RARE; Ovalocyte RARE; Pathologist Review May foll; Platelet Estimate SLT DEC (ADEQ); Red Cell Morphology N CHROM NORMAL (NORM C&C)
[2024-09-26] MEDS: 0.9% Normal Saline (1000mL) 1,000 ML 1000 ML IV (17:06)
[2024-09-26] MEDS: Ceftriaxone 1 GM/50 ML BAG IV (17:07)
--- NOTE | 2024-09-26 17:46 | HP.PCM.HOS_ITS ---
HPI - General General Date of Admission: 09/26/24 Date of Service: 09/26/24 Chief Complaint: Mid lower abdominal pain x 24 hours HPI Narrative LUCIEN BASS, is a 79 M who presents to the emergency room at [facility] with complaints of mid lower abdominal pain that is unrelated to urination. Patient denies any frequency or urgency, he describes the pain as burning in nature and constant. Patient has a history of CLL and has been off his oral chemotherapy medication for approximately a week due to planned surgery on his left arm for lymphedema. Patient denies any fevers or chills at home. Workup in the emergency room included a CBC which showed an elevated white blood cell count at 18.7, hemoglobin was 13.9, platelet count was 132,000. Chemistry profile was essentially unremarkable except for a glucose of 135. UA showed positive nitrites, over 100 RBCs, 5-10 WBCs, and +1 bacteria. CTA of the chest abdomen and pelvis was obtained, there were innumerable lymph nodes seen throughout the chest abdomen and pelvis indicating diffuse metastatic disease, there was a 5 cm irregular airspace opacity in the left upper lobe. I contacted the patient's oncologist (Dr. Roca) and he states that the fact the patient has been off his oral chemo medication for CLL could cause an increase in abdominal pain. There is also question the patient may have an acute cystitis-the ER physician administered IV Rocephin and I will continue this medication in the hospital. Dr. Roca recommended placing the patient on corticosteroids-he said this may help the patient's abdominal pain. Patient will be admitted to [place] [id number] for uncontrolled abdominal pain secondary to acute cystitis and CLL. [facility] Medical History (Updated 09/26/24 @ 17:[address] Prabhakar Soria, DO) Abdominal pain History of stress test Wears hearing aid Wears glasses Cancer Arthritis Anemia High cholesterol Easy bruising Excessive bleeding History of leukemia TIA (transient ischemic attack) Non-smoker Cardiology follow-up encounter History of rheumatic fever History of neuropathy History of thyroid disease History of gastroesophageal reflux (GERD) History of osteoarthritis History of high cholesterol History of hypertension History of hearing problem History of glaucoma History of arthritis Infectious colitis Prerenal azotemia Lymphedema of left upper extremity Left upper extremity swelling CLL (chronic lymphocytic leukemia) Recurrent right inguinal hernia Inguinal hernia Bradycardia Encounter for education Swelling of left hand NHL (non-Hodgkin's lymphoma) Seroma after procedure CLL (chronic lymphocytic leukemia) Elevated LDH Night sweats Axillary adenopathy Stroke med port removal Hypothyroidism Hypertension Hyperlipidemia Glaucoma Seasonal allergies History of non-Hodgkin's lymphoma Home Medications ?Medication ?Instructions ?Recorded ?Last Taken ?Type latanoprost 0.005 % eye drops 1 drp EACH EYE QHS Check with 03/27/15 09/25/24 History primary doctor pravastatin 80 mg tablet 80 mg PO QHS Check with prim anthony 06/15/19 09/24/24 History doctor carisoprodol 350 mg tablet 350 mg PO 4X/DAY PRN Muscle Spasm 12/23/19 Unknown History mirtazapine 30 mg tablet 30 mg PO QHS Check with prim anthony 12/23/19 09/24/24 History doctor pantoprazole 40 mg tablet,delayed 40 mg PO DAILY reflu x 11/02/20 09/25/24 History release (Protonix) ferrous sulfate 140 mg (45 mg 140 mg PO DAILY 03/05/23 09/24/24 History iron) tablet,extended release aspirin 81 mg chewable tablet 81 mg PO DAILY Check wit h primary 12/31/23 09/22/24 History Held on 09/26/24. doctor Instructions: procedure hydralazine 100 mg tablet 100 mg PO BID 04/17/2409/24 History liothyronine 5 mcg tablet 10 mcg PO DAILY 04/17/2406/09 History losartan 100 mg tablet 100 mg PO DAILY 04/17/2405/10 History venlafaxine 150 mg 150 mg PO DAILY 04/17/2405/10 History capsule,extended release 24 hr ibrutinib 420 mg tablet 420 mg PO QDAY 30 days #30 t abs 05/24/24 09/22/24 Rx Held on 09/26/24. Instructions: Ordered ammonium lactate 12 % lotion 1 applic topical BID 09/1409/24/24 History levothyroxine 100 mcg tablet 100 mcg PO DAILY 09/26/24 09/25/24 History sucralfate 1 gram tablet (Carafate) 1 g PO BID PRN ref lux #14 tabs 09/26/24 Unknown Rx Allergy/AdvReac Type Severity Reaction Status Date / Time No Known Allergies Allergy Verified 09/26/24 15:26 Family History Mother Arthritis Hypertension Heart disease Father Hypertension Hyperlipidemia Heart disease Arthritis Sister Colon cancer Uncle Diabetes Surgical History History of cardiac catheterization Hx of hernia repair History of bilateral knee replacement Hx of right inguinal hernia repair History of surgical procedure on eye proper using laser s/p axillary lymph node biopsy History of bilateral inguinal hernia repair Status post glaucoma surgery S/P cardiac catheterization BILATERAL SHOULDER SURGERY Hx of tonsillectomy H/O cataract extraction History of back surgery Social History (Updated 09/26/24 @ 15:26 by Nicolasa Conner) household members: spouse housing: house Smoking Status: Never smoker alcohol intake: current alcohol intake frequency: a few times a month substance use type: does not use additional social history: pt denies vaping, denies marijuana use denies edibles, denies blood clotting disorder uses aspirin daily uses ibuprofen as needed ROS Constitutional Constitutional: Denies anorexia, change in weight, chills, fatigue, fever(s), night sweats or weakness Eyes Eyes: Denies blurry vision, change in vision, discharge from eye(s) or eye pain Cardiovascular Cardiovascular: Reports chest pain; Denies claudication, edema or palpitations Respiratory/Chest Respiratory/Chest: Denies cough, dyspnea, hemoptysis, productive cough, shortness of breath at rest or shortness of breath with exertion Gastrointestinal Gastrointestinal: Reports abdominal pain and constipation; Denies diarrhea, hematemesis, hematochezia, melena, nausea or vomiting Genitourinary Genitourinary: Denies burning urination, difficulty urinating, dysuria, hematuria, nocturia, urinary frequency, urinary hesitancy, urinary incontinence or urinary urgency Musculoskeletal Musculoskeletal: Denies back pain, joint pain, joint stiffness, joint swelling, myalgias or neck pain Neurologic Neurologic: Denies abnormal gait, abnormal speech, dizziness, focal weakness, headache(s), loss of vision, numbness, other visual disturbances, paresthesias, syncope or tingling Psychiatric Psychiatric: Denies anxiety, cognitive impairment, depression, irritability, mood swings or suicidal ideation Endocrine Endocrinology: Denies change in body appearance, cold intolerance, excessive sweating, heat intolerance, polydipsia or polyuria Hematologic/Lymphatic Hematologic/Lymphatic: Denies none, anemia, easy bleeding, easy bruising or lymphadenopathy Allergic/Immunologic Allergic/Immunologic: Denies rhinitis, urticaria, eczemia or asthma Vital Signs Vital Signs Vital Signs: 09/26/24 15:22 09/26/24 17:13 09/26/24 17:14 Temperature 97.6 F L 97.6 F L 97.6 F L Temperature Source Oral Oral Pulse Rate 78 78 78 Respiratory Rate 16 16 16 Blood Pressure 177/83 H 177/83 H 184/89 H Blood Pressure Mean 114 114 120 Pulse Ox 98 98 98 Oxygen Delivery Method Room Air Room Air Physical Exam Const alert, oriented x3 and no apparent distress General Appearance: cooperative, well kempt and well developed Orientation / Consciousness: awake, oriented to person, oriented to place and oriented to time HEENT normocephalic, head/scalp atraumatic, hearing grossly normal bilaterally and moist oral mucous membranes Eyes PERRL, EOMs intact bilaterally and conjunctivae normal Neck supple, no JVD, thyroid normal and no carotid bruits General: trachea midline Resp normal respiratory effort, no retractions, no use of accessory muscles and clear to auscultation bilaterally Auscultation: Negative for rales, rhonchi or wheezes Cardio regular rate, regular rhythm, S1 normal heart sound, S2 normal heart sound, no murmurs, no rub and no gallops GI normal to inspection, nondistended, normoactive bowel sounds, soft to palpation, non-tender and non-distended Extremity Extremity Narrative: Patient has severe lymphedema of his left arm Skin no rashes or lesions noted General Skin Exam: no breakdown Neuro oriented x3, CN's II-XII intact bilaterally, moves all extremities, no focal motor deficits and no sensory deficits noted Sensorium / Orientation: awake and alert Speech: speech normal Psych affect normal Results Lab / Micro Data 09/26/24 15:32 09/26/24 15:32 Labs: Laboratory Results - last 24 hr 09/26/24 15:32: WBC 18.7 H, RBC 4.77, Hgb 13.9, Hct 41.1, MCV 86.2, MCH 29.1, MCHC 33.8, RDW Std Deviation 50.2 H, RDW Coeff of Deborah 16.0 H, Plt Count 132 L, MPV 11.3, Neut % (Auto) Not Reportable, Absolute Neuts (auto) 11.6 H, Absolute Lymphs (auto) 1.12, Total Counted 100, Neutrophils % (Manual) 60, Band Neutrophils % 2, Lymphocytes % (Manual) 6 L, Monocytes % (Manual) 30 H, Metamyelocytes % 1, Myelocytes % 1 H, Differential Comment SEE COMMENT, Diff Path Review May [place], Platelet Estimate SLT DEC, RBC Morphology N CHROM, Anisocytosis RARE, Macrocytosis RARE, Ovalocytes RARE, Sodium 136, Potassium 3.8, Chloride 100, Carbon Dioxide 20.7 L, Anion Gap 16 H, BUN 14, Creatinine 1.15, Est GFR (MDRD) Non-Af 65, BUN/Creatinine Ratio 12.2, Glucose 135 H, Calcium 9.6, Total Bilirubin 1.08, AST 32, ALT 13, Alkaline Phosphatase 94, Total Protein 6.1, Albumin 4.1, Globulin 1.9 L, Albumin/Globulin Ratio 2.1, L ipase 10 L 09/26/24 15:54: Urine Color Yellow, Urine Clarity Cloudy, Urine pH 6.5, Ur Specific [place] 1.010, Urine Protein 100 H, Urine Glucose (UA) Normal, Urine Ketones 5 H, Urine Occult Blood 250 H, Urine Nitrite Positive H, Urine Bilirubin 1 H, Urine Urobilinogen 1 H, Ur Leukocyte Esterase 25 H, Urine RBC > 100 SEEN, Urine WBC 5-10 SEEN, Ur Squamous Epith Cells 0-5 SEEN, Amorphous Sediment 1+ URATE, Urine Bacteria 1+, Urine Mucus 0 SEEN Assessment & Plan Assessment/Plan (1) Abdominal pain: QUALIFIERS: Abdominal location: right lower quadrant Qualified Code(s): R10.31 - Right lower quadrant pain PLAN: Plan 1. 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 #2 CLL-complicates care, management, recovery, and prognosis #3 acute cystitis-patient will be kept on IV Rocephin #4 severe lymphedema of the left arm-complicates care, management, recovery, and prognosis #5 essential hypertension-patient will be kept on his home medication #6 hypothyroidism-patient is on Synthroid #7 history of GERD-patient will be kept on Protonix #8 hyperlipidemia-patient is on pravastatin Total clinical time spent by myself addressing the patient's medical issues, reviewing his data, and collaborating with patient's care team: 75 minutes Charges/Coding Visit Charges Inpatient E&M: 26264 Init Hosp L3
[2024-09-26] MEDS: Bisacodyl 5 MG Tablet 10 MG PO (21:34)
[2024-09-26] MEDS: hydrALAZINE 50 MG Tablet 100 MG PO (21:35)
[2024-09-26] MEDS: Pantoprazole Sodium 40 MG Tablet PO (21:37)
[2024-09-26] MEDS: Pravastatin 80 MG Tablet PO (21:37)
[2024-09-26] MEDS: Mirtazapine 30 MG Tablet PO (21:38)
[2024-09-26] MEDS: Latanoprost 0.005% 1 Bottle 1 DRP EACH EYE (21:38)
[2024-09-26] MEDS: oxyCODONE 5 MG Tablet 10 MG PO (22:24)
[2024-09-27] MEDS: dexAMETHasone 4 MG/ML Vial IV ×4 (00:29→17:52)
[2024-09-27 04:00] VITALS: BP 165/81; PULSE 80; RESP 15; TEMP 36.6; O2SAT 95
[2024-09-27 06:16] LABS: Hematocrit 39.1 % (40-54); Mean Corp Hgb Conc 33.2 g/dL (32-36); Mean Corpuscular Hgb 28.6 pg (27.0-32.0); Mean Corpuscular Volume 85.9 fL (80-94); Mean Platelet Vol. 10.9 fl (6.2-12.0); POSITIVE COUNT YES; POSITIVE DIFFERENTIAL YES; POSITIVE MORPHOLOGY YES; Platelet Count 131 K/mm3 (150-450); RBC Distribution Width CV 16.1 % (11.6-14.6); RBC Distribution Width SD 50.8 fl (35.1-43.9); Red Blood Count 4.55 M/mm3 (4.6-6.2); White Blood Count 18.5 K/mm3 (4.4-11.0)
[2024-09-27] MEDS: Liothyronine 5 MCG Tablet 10 MCG PO (06:16)
[2024-09-27 06:17] LABS: Differential Indicated MANUAL DIFF
[2024-09-27] MEDS: Levothyroxine 100 MCG Tablet PO (06:17)
[2024-09-27 06:41] LABS: ALB/GLOB Ratio 2.1 RATIO (0.9-2.4); AST(SGOT) 31 U/L (<=37); Alanine Aminotransfer ALT/SGPT 12 U/L (<=46); Albumin, Serum 3.7 g/dL (3.4-4.8); Alkaline Phosphatase 79 U/L (40-129); Anion Gap 12 (5-15); BUN 17 mg/dL (4-19); BUN/Creat Ratio 14.7 RATIO (10-20); Calcium,Total 8.7 mg/dL (7.6-11.0); Carbon Dioxide 20.4 mmol/L (21.0-32.0); Chloride 103 mmol/L (98-108); Creatinine, Serum 1.13 mg/dL (0.70-1.20); EST Glomerular Filtration Rate 67 (>60); Estimated Creatinine Clearance 59.13 ml/min (50-250); Globulin 1.7 g/dL (2.2-4.2); Glucose 145 mg/dL (70-99); Lymphocyte 15 % (19-41); Metamyelocyte 1 % (0-1); Monocyte 10 % (0-10); Neutrophil-Band 4 % (0-5); Neutrophil-Segmented 70 % (47-70); Potassium 3.8 mmol/L (3.3-5.1); Protein, Total 5.4 g/dL (5.9-8.4); Sodium Level 135 mmol/L (133-145); Total Bilirubin 0.61 mg/dL (0.00-1.30); Total Cells Counted 100 (MANUAL DIFF)
[2024-09-27 06:42] LABS: Absolute Neutrophil Count 13.7 X10^3/uL (2.0-7.7)
[2024-09-27 06:43] LABS: Absolute Lymphocyte Count 2.78 X10^3/uL (0.83-4.51); Platelet Estimate SLT DEC (ADEQ); Reactive Lymphocyte 1+; Red Cell Morphology NORM C+C NORMAL (NORM C&C)
--- NOTE | 2024-09-27 07:14 | PCM.PN.HOSP ---
Reason for Visit Reason for Visit: Diagnoses Right lower quadrant pain (09/26/24) Subjective Subjective Patient is a 79-year-old gentleman with history of CLL who presented with abdominal pain. Patient was also found to have abnormal urinalysis consistent with cystitis admitted to regular nursing floor for further management Objective Data Objective Data Vital Signs: Vital Signs Temp Pulse Resp BP Pulse Ox O2 Del Method 97.8 F 80 15 165/81 H 95 Nasal Cannula 09/27/24 04:00 09/27/24 04:00 09/27/24 04:00 09/27/24 04:00 09/27/24 04:00 09/27/24 05:54 Oxygen Delivery Method Nasal Cannula Weight: 91.172 kg Body Mass Index (BMI) 27.2 Intake & Output: Intake and Output for Last 24 Hours 09/25/24 09/26/24 09/27/24 23:59 23:59 23:59 Intake Total 0 / 2250 200 / 200 Balance 0 / 2250 200 / 200 Lab / Micro Data 09/27/24 05:58 09/27/24 05:58 Labs: Laboratory Results - last 24 hr 09/26/24 15:32: WBC 18.7 H, RBC 4.77, Hgb 13.9, Hct 41.1, MCV 86.2, MCH 29.1, MCHC 33.8, RDW Std Deviation 50.2 H, RDW Coeff of Deborah 16.0 H, Plt Count 132 L, MPV 11.3, Neut % (Auto) Not Reportable, Absolute Neuts (auto) 11.6 H, Absolute Lymphs (auto) 1.12, Total Counted 100, Neutrophils % (Manual) 60, Band Neutrophils % 2, Lymphocytes % (Manual) 6 L, Monocytes % (Manual) 30 H, Metamyelocytes % 1, Myelocytes % 1 H, Differential Comment SEE COMMENT, Diff Path Review May foll, Platelet Estimate SLT DEC, RBC Morphology N CHROM, Anisocytosis RARE, Macrocytosis RARE, Ovalocytes RARE, Sodium 136, Potassium 3.8, Chloride 100, Carbon Dioxide 20.7 L, Anion Gap 16 H, BUN 14, Creatinine 1.15, Est GFR (MDRD) Non-Af 65, BUN/Creatinine Ratio 12.2, Glucose 135 H, Calcium 9.6, Total Bilirubin 1.08, AST 32, ALT 13, Alkaline Phosphatase 94, Total Protein 6.1, Albumin 4.1, Globulin 1.9 L, Albumin/Globulin Ratio 2.1, Lipase 10 L 09/26/24 15:54: Urine Color Yellow, Urine Clarity Cloudy, Urine pH 6.5, Ur Specific [place] 1.010, Urine Protein 100 H, Urine Glucose (UA) Normal, Urine Ketones 5 H, Urine Occult Blood 250 H, Urine Nitrite Positive H, Urine Bilirubin 1 H, Urine Urobilinogen 1 H, Ur Leukocyte Esterase 25 H, Urine RBC > 100 SEEN, Urine WBC 5-10 SEEN, Ur Squamous Epith Cells 0-5 SEEN, Amorphous Sediment 1+ URATE, Urine Bacteria 1+, Urine Mucus 0 SEEN 09/27/24 05:58: WBC 18.5 H, RBC 4.55 L, Hgb 13.0, Hct 39.1 L, MCV 85.9, MCH 28.6, MCHC 33.2, RDW Std Deviation 50.8 H, RDW Coeff of Deborah 16.1 H, Plt Count 131 L, MPV 10.9, Neut % (Auto) Not Reportable, Absolute Neuts (auto) 13.7 H, Absolute Lymphs (auto) 2.78, Total Counted 100, Neutrophils % (Manual) 70, Band Neutrophils % 4, Lymphocytes % (Manual) 15 L, Monocytes % (Manual) 10, Metamyelocytes % 1, Diff Path Review May foll, Reactive Lymphocytes 1+, Platelet Estimate SLT DEC, RBC Morphology NORM C+C, Sodium 135, Potassium 3.8, Chloride 103, Carbon Dioxide 20.4 L, Anion Gap 12, BUN 17, Creatinine 1.13, Estim Creat Clear Calc 59.13, Est GFR (MDRD) Non-Af 67, BUN/Creatinine Ratio 14.7, Glucose 145 H, Calcium 8.7, Total Bilirubin 0.61, AST 31, ALT 12, Alkaline Phosphatase 79, Total Protein 5.4 L, Albumin 3.7, Globulin 1.7 L, Albumin/Globulin Ratio 2.1 Physical Exam Narrative GENERAL: cooperative HEENT: Atraumatic; normocephalic EYES; Anicteric, Normal Conjunctiva NECK; supple, normal thyroid, RESPIRATORY: Diminished to auscultation CARDIOVASCULAR: Regular S1 S2, GI: soft, normoactive bowel sounds, : No Renal angle tenderness; EXTREMITIES: Lymphedema involving the left upper extremity MUSCULOSKELETAL: no muscle wasting NEURO: Awake; no lateralizing signs. SKIN: No Rash PSYCH; Flat affect Assessment & Plan Assessment/Plan (1) Abdominal pain: QUALIFIERS: Abdominal location: right lower quadrant Qualified Code(s): R10.31 - Right lower quadrant pain PLAN: Plan Patient is a 79-year-old gentleman with history of CLL who presented with abdominal pain. Patient was also found to have abnormal urinalysis consistent with cystitis admitted to regular nursing floor for further management 1. Abdominal pain [place] to be secondary to patient's CLL with severe lymphadenopathy after patient was placed of his oral chemotherapy for a week in anticipation of left upper surgery for lymphedema. Patient admitted to regular nursing floor for symptom management 2. Acute cystitis ? Patient was started on ceftriaxone urine culture sent 3. Severe lymphedema involving the left upper extremity ? Patient is scheduled to undergo surgical intervention by Dr. Gray as outpatient 4. Hypothyroidism ? Patient is on levothyroxine home dose continued 5. Hypertension ? Blood pressure controlled, home medications continued with dose adjustment as needed 6. Dyslipidemia ?Patient is on statin therapy, continued at home dose 7. GERD ? On PPI 8. Depression with anxiety ? Patient is over nafoxidine continue 9.DVT prophylaxis ? Subcu heparin Time spent in the patient's overall evaluation,decision-making process, review of diagnostic data, adjustment of management, discussion with other providers, nursing nursing and ancillary staff involved in patient's care documentation, 38 Minutes Charges/Coding Visit Charges Inpatient E&M: 83971 Subs Hosp L2
[2024-09-27 09:57] VITALS: BP 170/88; PULSE 80; RESP 18; TEMP 36.7; O2SAT 96
[2024-09-27 10:03] VITALS: PULSE 80
[2024-09-27] MEDS: Venlafaxine XR 150 MG Capsule PO (10:03)
[2024-09-27] MEDS: Pantoprazole Sodium 40 MG Tablet PO ×2 (10:03→20:36)
[2024-09-27] MEDS: Losartan Potassium 100 MG Tablet PO (10:03)
[2024-09-27] MEDS: hydrALAZINE 50 MG Tablet 100 MG PO ×2 (10:03→20:35)
[2024-09-27] MEDS: Ceftriaxone 1 GM/50 ML BAG IV (10:26)
[2024-09-27] MEDS: 0.9% Saline Lock 10 ML Syringe IV ×2 (11:51→17:53)
[2024-09-27] MEDS: 0.9% Normal Saline (100mL Bag) 100 ML 15 ML IV (11:51)
[2024-09-27] MEDS: Ferrous Sulfate 325 MG Tablet PO (11:52)
--- NOTE | 2024-09-27 12:52 | CASEMGMT ---
DUANE ALEJO Assessment Face to Face with patient for initial transition planning/care coordination assessment. DUANE ALEJO introduced self and role at [facility], pt voices understanding. Pt is A&Ox4 and is resting comfortably in bed and is calm. Care providers, pharmacy, and demographics verified. Admitting dx: Abdominal Pain, Cystitis LACE Strata: PCP: Baldo Lanier Specialists: Chanelle (Oncology for CLL), Dewey (Urology), Tomy (Dermatology), Mae (GI), Zi (Cardio) Preferred Pharmacy: [facility] Insurance: [employer] A/B, [employer] [facility] Prescription Benefit: Yes LNOK: Arabella (W) Living Arrangements: Pt lives with his in a single story home with a flat entrance ADLs/IADLs: Ind Transportation: Self, DME: Raised toilet seat, cane, FWW, and grab bars from a previous procedure. Pt also has a BP machine HHC/SNF: Denies Hx or needs Pt?s goal: Home Plan: Home with pt once medically ready. Pt denies HHC or OP Tx needs. Pt has a history of CLL and was scheduled for surgery on the . Pt was taking an oral chemo med but was placed on hold in anticipation for this procedure. At this time, the pt is waiting for Dr. Roca to see him to help solidify the plan moving forward. Pt denies further questions or concerns at this time. Report given to NICHOLE ZEPEDA CM. Asha Tenorio RN, CM
[2024-09-27 15:18] VITALS: BP 173/88; PULSE 86; RESP 18; TEMP 37.2; O2SAT 96
[2024-09-27 20:35] VITALS: PULSE 86
[2024-09-27] MEDS: Polyethylene Glycol 3350 17 GM PACKET PO (20:36)
[2024-09-27] MEDS: Pravastatin 80 MG Tablet PO (20:37)
[2024-09-27] MEDS: Latanoprost 0.005% 1 Bottle 1 DRP EACH EYE (20:37)
[2024-09-27] MEDS: Mirtazapine 30 MG Tablet PO (20:37)
[2024-09-27 20:47] VITALS: BP 160/76; PULSE 86; RESP 16; TEMP 37.1; O2SAT 95
[2024-09-28] MEDS: dexAMETHasone 4 MG/ML Vial IV ×2 (00:03→06:12)
[2024-09-28] MEDS: 0.9% Saline Lock 10 ML Syringe IV ×3 (00:03→10:02)
[2024-09-28] MEDS: Levothyroxine 100 MCG Tablet PO (06:12)
[2024-09-28] MEDS: Liothyronine 5 MCG Tablet 10 MCG PO (06:12)
[2024-09-28 07:03] LABS: Hematocrit 38.2 % (40-54); Hemoglobin 12.9 g/dL (13.0-16.5); Mean Corp Hgb Conc 33.8 g/dL (32-36); Mean Corpuscular Hgb 28.5 pg (27.0-32.0); Mean Corpuscular Volume 84.5 fL (80-94); Mean Platelet Vol. 11.7 fl (6.2-12.0); POSITIVE COUNT YES; POSITIVE DIFFERENTIAL YES; POSITIVE MORPHOLOGY YES; Platelet Count 166 K/mm3 (150-450); RBC Distribution Width CV 16.1 % (11.6-14.6); RBC Distribution Width SD 49.7 fl (35.1-43.9); Red Blood Count 4.52 M/mm3 (4.6-6.2); White Blood Count 25.3 K/mm3 (4.4-11.0)
[2024-09-28 07:06] LABS: Differential Indicated MANUAL DIFF
--- NOTE | 2024-09-28 07:31 | PCM.PN.HOSP ---
Reason for Visit Reason for Visit: Diagnoses Right lower quadrant pain (09/26/24) Subjective Subjective Patient urine cultures finalized nonsignificant growth. Patient will be assessed for discharge Objective Data Objective Data Vital Signs: Vital Signs Temp Pulse Resp BP Pulse Ox O2 Del Method 98.7 F 86 16 160/76 H 95 Room Air 09/27/24 20:47 09/27/24 20:47 09/27/24 20:47 09/27/24 20:47 09/27/24 20:47 09/27/24 20:47 Oxygen Delivery Method Room Air Weight: 91.2 kg Body Mass Index (BMI) 27.2 Intake & Output: Intake and Output for Last 24 Hours 09/26/24 09/27/24 09/28/24 23:59 23:59 23:59 Intake Total 2049 750 / 750 400 / 400 Balance 2049 750 / 750 400 / 400 Lab / Micro Data 09/28/24 06:10 09/28/24 06:10 Labs: Laboratory Results - last 24 hr 09/27/24 05:58: Diff Path Review N/A 09/28/24 06:10: WBC 25.3 H, RBC 4.52 L, Hgb 12.9 L, Hct 38.2 L, MCV 84.5, MCH 28.5, MCHC 33.8, RDW Std Deviation 49.7 H, RDW Coeff of Deborah 16.1 H, Plt Count 166, MPV 11.7, Neut % (Auto) Not Reportable Physical Exam Narrative GENERAL: cooperative HEENT: Atraumatic; normocephalic EYES; Anicteric, Normal Conjunctiva NECK; supple, normal thyroid, RESPIRATORY: Diminished to auscultation CARDIOVASCULAR: Regular S1 S2, GI: soft, normoactive bowel sounds, : No Renal angle tenderness; EXTREMITIES: Lymphedema involving the left upper extremity MUSCULOSKELETAL: no muscle wasting NEURO: Awake; no lateralizing signs. SKIN: No Rash PSYCH; Flat affect Assessment & Plan Assessment/Plan (1) Abdominal pain: QUALIFIERS: Abdominal location: right lower quadrant Qualified Code(s): R10.31 - Right lower quadrant pain PLAN: Plan Patient is a 79-year-old gentleman with history of CLL who presented with abdominal pain. Patient was also found to have abnormal urinalysis consistent with cystitis admitted to regular nursing floor for further management 1. Abdominal pain [place] to be secondary to patient's CLL with severe lymphadenopathy after patient was placed of his oral chemotherapy for a week in anticipation of left upper surgery for lymphedema. Patient admitted to regular nursing floor for symptom management ? 09/28/2024; symptoms improved. 2. Acute cystitis ? Patient was started on ceftriaxone urine culture sent ? 09/28/2024; patient urine cultures finalized no significant growth. Will discontinue antibiotics 3. Severe lymphedema involving the left upper extremity ? Patient is scheduled to undergo surgical intervention by Dr. Gomez as outpatient 4. Hypothyroidism ? Patient is on levothyroxine home dose continued 5. Hypertension ? Blood pressure controlled, home medications continued with dose adjustment as needed 6. Dyslipidemia ?Patient is on statin therapy, continued at home dose 7. GERD ? On PPI 8. Depression with anxiety ? Patient is over nafoxidine continue 9.DVT prophylaxis ? Subcu heparin Time spent in the patient's overall evaluation,decision-making process, review of diagnostic data, adjustment of management, discussion with other providers, nursing nursing and ancillary staff involved in patient's care documentation, 36 Minutes
[2024-09-28 07:44] LABS: Anion Gap 13 (5-15); BUN 21 mg/dL (4-19); BUN/Creat Ratio 19.3 RATIO (10-20); Calcium,Total 8.8 mg/dL (7.6-11.0); Carbon Dioxide 21.5 mmol/L (21.0-32.0); Chloride 102 mmol/L (98-108); EST Glomerular Filtration Rate 69 (>60); Estimated Creatinine Clearance 60.75 ml/min (50-250); Glucose 124 mg/dL (70-99); Potassium 3.6 mmol/L (3.3-5.1); Sodium Level 136 mmol/L (133-145)
--- NOTE | 2024-09-28 09:17 | DS.PCM_ITS ---
Providers Date of Admission: 09/26/24 Date of Discharge: 09/28/24 Primary Care Physician: Dr. Baldo Lanier, DO Consultations 09/26/24 18:58 Consult: Oncology/Hematology Routine Consulting Provider: [facility] Reason for Consult: Patient of Dr. Roca, history of CLL, intractable abdominal pain EMERGENT Consult: No MD Notified: Yes Date Notified: 09/26/24 Time Notified: 18:04 Method of Notification: Verbal Reason For Visit: UNCONTROLLED ABDOMINAL PAIN CYSTITIS Diagnosis Discharge Diagnosis (1) Abdominal pain: Status: Acute Code(s): R10.9 - Unspecified abdominal pain Qualifiers: Abdominal location: right lower quadrant Qualified Code(s): R10.31 - Right lower quadrant pain Plan Patient is a 79-year-old gentleman with history of CLL who presented with abdominal pain. Patient was also found to have abnormal urinalysis consistent with cystitis admitted to regular nursing floor for further management 1. Abdominal pain [place] to be secondary to patient's CLL with severe lymphadenopathy after patient was placed of his oral chemotherapy for a week in anticipation of left upper surgery for lymphedema. Patient admitted to regular nursing floor for symptom management ? 09/28/2024; symptoms improved. 2. Acute cystitis ? Patient was started on ceftriaxone urine culture sent ? 09/28/2024; patient urine cultures finalized no significant growth. Will discontinue antibiotics 3. Severe lymphedema involving the left upper extremity ? Patient is scheduled to undergo surgical intervention by Dr. Gomez as outpatient 4. Hypothyroidism ? Patient is on levothyroxine home dose continued 5. Hypertension ? Blood pressure controlled, home medications continued with dose adjustment as needed 6. Dyslipidemia ?Patient is on statin therapy, continued at home dose 7. GERD ? On PPI 8. Depression with anxiety ? Patient is over nafoxidine continue 9.DVT prophylaxis ? Subcu heparin Time spent in the patient's overall evaluation,decision-making process, review of diagnostic data, adjustment of management, discussion with other providers, nursing nursing and ancillary staff involved in patient's care documentation, 36 Minutes Medications at Discharge Home Medications latanoprost 0.005 % eye drops 1 drp EACH EYE QHS Check with primary doctor 03/27/15 pravastatin 80 mg tablet 80 mg PO QHS Check with primary doctor 06/15/19 carisoprodol 350 mg tablet 350 mg PO 4X/DAY PRN Muscle Spasm 12/23/19 mirtazapine 30 mg tablet 30 mg PO QHS Check with primary doctor 12/23/19 pantoprazole 40 mg tablet,delayed release (Protonix) 40 mg PO DAILY reflux 11/02/20 ferrous sulfate 140 mg (45 mg iron) tablet,extended release 140 mg PO DAILY 03/05/23 aspirin 81 mg chewable tablet 81 mg PO DAILY Check with primary doctor 12/31/23 hydralazine 100 mg tablet 100 mg PO BID 04/17/24 liothyronine 5 mcg tablet 10 mcg PO DAILY 04/17/24 losartan 100 mg tablet 100 mg PO DAILY 04/17/24 venlafaxine 150 mg capsule,extended release 24 hr 150 mg PO DAILY 04/17/24 ibrutinib 420 mg tablet 420 mg PO QDAY 30 days #30 tabs 05/24/24 ammonium lactate 12 % lotion 1 applic topical BID 09/26/24 levothyroxine 100 mcg tablet 100 mcg PO DAILY 09/26/24 sucralfate 1 gram tablet (Carafate) 1 g PO BID PRN reflux #14 tabs 09/26/24 Physical Exam Narrative GENERAL: cooperative HEENT: Atraumatic; normocephalic EYES; Anicteric, Normal Conjunctiva NECK; supple, normal thyroid, RESPIRATORY: Diminished to auscultation CARDIOVASCULAR: Regular S1 S2, GI: soft, normoactive bowel sounds, : No Renal angle tenderness; EXTREMITIES: Lymphedema involving the left upper extremity MUSCULOSKELETAL: no muscle wasting NEURO: Awake; no lateralizing signs. SKIN: No Rash PSYCH; Flat affect Weight / BMI Weight Weight: 91.2 kg Body Mass Index (BMI) 27.2 ABG / Lab / Microbiology Data 09/28/24 06:10 09/28/24 06:10 Laboratory: Laboratory Results - last 24 hr 09/27/24 05:58: Diff Path Review N/A 09/28/24 06:10: WBC 25.3 H, RBC 4.52 L, Hgb 12.9 L, Hct 38.2 L, MCV 84.5, MCH 28.5, MCHC 33.8, RDW Std Deviation 49.7 H, RDW Coeff of Deborah 16.1 H, Plt Count 166, MPV 11.7, Neut % (Auto) Not Reportable, Sodium 136, Potassium 3.6, Chloride 102, Carbon Dioxide 21.5, Anion Gap 13, BUN 21 H, Creatinine 1.10, Estim Creat Clear Calc 60.75, Est GFR (MDRD) Non-Af 69, BUN/Creatinine Ratio 19.3, Glucose 124 H, Calcium 8.8, Phosphorus 2.0 L, Magnesium 2.0 Microbiology: Microbiology 09/26/24 15:54 Urine, Clean Catch Urine Culture - Preliminary Mixed Gram Positive Organisms D/C Instructions Discharge Diet: No restrictions Discharge Activity: Return to Normal Activity Call your doctor if you observe: Fever of 101 or Higher, Shortness of breath, Fainting spells and Chest pain DC O2, CPAP, BIPAP Needs Home O2 Discharge instructions: No Meaningful Use Info Meaningful Use Meaningful Use Diagnoses (Choose all that apply): None applicable Ischemic Stroke Statin Dosing Therapy Reference: STATIN DOSE THERAPY REFERENCE: * Patients > 75 years receive moderate or high dose statin therapy. * Patients 75 years or YOUNGER should receive HIGH intensity statin dose unless contraindicated. You will be required to document reason for non-treatment if statin daily dose does not meet guidelines. HIGH DOSE STATIN THERAPY DAILY Atorvastatin > than or = to 40 mg Rosuvastatin > than or = to 20 mg Amlodipine + Atorvastatin > than or = to 2.5/40 mg Ezetimibe + Simvastatin 10/80 mg Simvastatin 80mg Discharge Plan Admission Admit Date/Time: 09/26/24 17:59 Attending Provider: Ok Nava Primary Care Provider: Baldo Lanier Consulting Providers: Carlo Gallardo; Jordan Serna; Lizz Mckeon; Cooper Alcantara; Kirsty Alston; Luis Harrison; Alden Powell; Prabhakar Soria Discharge Orders/Prescriptions Prescriptions: Continued pantoprazole [Protonix] 40 mg tablet,delayed release (DR/EC) 40 mg PO DAILY aspirin 81 mg tablet,chewable 81 mg PO DAILY Patient Comments: HOLD 2 WEEKS PRIOR TO PROCEDURE ferrous sulfate 140 mg (45 mg iron) tablet extended release 140 mg PO DAILY Rx Instructions: 45mg oral tablet (elemental iron) latanoprost 2.5 ML drops 1 drp EACH EYE QHS Patient Comments: EACH EYE carisoprodol 350 MG tablet 350 mg PO 4X/DAY PRN (Reason: Muscle Spasm) mirtazapine 30 MG tablet 30 mg PO QHS pravastatin 80 MG tablet 80 mg PO QHS hydralazine 100 mg tablet 100 mg PO BID liothyronine 5 mcg tablet 10 mcg PO DAILY venlafaxine 150 mg capsule,extended release 24hr 150 mg PO DAILY Patient Comments: PT TAKES AT BEDTIME. losartan 100 mg tablet 100 mg PO DAILY Patient Comments: PT TAKES AT BEDTIME levothyroxine 100 mcg tablet 100 mcg PO DAILY sucralfate [Carafate] 1 gram tablet 1 g PO BID PRN (Reason: reflux) Qty: 14 0RF Patient Comments: PT NOT 100% SURE IF HE TAKES THIS MEDICATION. ammonium lactate 12 % lotion 1 applic topical BID ibrutinib 420 mg tablet 420 mg PO QDAY 30 Days Qty: 30 11RF Patient Comments: STOP 2 WEEKS PRIOR TO SURGERY Referrals / Follow Up: Connor Roca MD [Med Staff - Active Staff] - In 1 Week Baldo Lanier DO [Primary Care Provider] - Within 1 Week Disposition Disposition (needs filled in before D/C Order can be placed): Home, Self Care Charges/Coding Visit Charges Inpatient E&M: 65166 Disch Hosp >30min
[2024-09-28 09:52] VITALS: BP 140/84; PULSE 94; RESP 16; TEMP 36.7; O2SAT 95
[2024-09-28] MEDS: Losartan Potassium 100 MG Tablet PO (09:55)
[2024-09-28] MEDS: Pantoprazole Sodium 40 MG Tablet PO (09:56)
[2024-09-28] MEDS: Venlafaxine XR 150 MG Capsule PO (09:56)
[2024-09-28] MEDS: Ceftriaxone 1 GM/50 ML BAG IV (10:02)
--- NOTE | 2024-09-28 10:04 | PHA.DC.MR.R ---
Pharmacy [place] Med Reconciliation Pharmacy Service has performed discharge medication reconciliation for this patient. The patient's discharge medication list was reviewed for discrepancies and discrepancies were resolved. Medications at Discharge Home Medications latanoprost 0.005 % eye drops 1 drp EACH EYE QHS Check with primary doctor 03/27/15 pravastatin 80 mg tablet 80 mg PO QHS Check with primary doctor 06/15/19 carisoprodol 350 mg tablet 350 mg PO 4X/DAY PRN Muscle Spasm 12/23/19 mirtazapine 30 mg tablet 30 mg PO QHS Check with primary doctor 12/23/19 pantoprazole 40 mg tablet,delayed release (Protonix) 40 mg PO DAILY reflux 11/02/20 ferrous sulfate 140 mg (45 mg iron) tablet,extended release 140 mg PO DAILY 03/05/23 aspirin 81 mg chewable tablet 81 mg PO DAILY Check with primary doctor 12/31/23 hydralazine 100 mg tablet 100 mg PO BID 04/17/24 liothyronine 5 mcg tablet 10 mcg PO DAILY 04/17/24 losartan 100 mg tablet 100 mg PO DAILY 04/17/24 venlafaxine 150 mg capsule,extended release 24 hr 150 mg PO DAILY 04/17/24 ibrutinib 420 mg tablet 420 mg PO QDAY 30 days #30 tabs 05/24/24 ammonium lactate 12 % lotion 1 applic topical BID 09/26/24 levothyroxine 100 mcg tablet 100 mcg PO DAILY 09/26/24 sucralfate 1 gram tablet (Carafate) 1 g PO BID PRN reflux #14 tabs 09/26/24
[2024-09-28 10:05] VITALS: BP 140/84; PULSE 94
[2024-09-28] MEDS: hydrALAZINE 50 MG Tablet 100 MG PO (10:05)
[2024-09-28 10:28] LABS: Blast 1 % (0-0); Lymphocyte 17 % (19-41); Metamyelocyte 2 % (0-1); Monocyte 10 % (0-10); Myelocyte 1 % (0-0); Neutrophil-Band 3 % (0-5); Neutrophil-Segmented 66 % (47-70); Total Cells Counted 100 (MANUAL DIFF)
[2024-09-28 10:29] LABS: Platelet Estimate A (ADEQ); Polychromasia 1+
[2024-09-28 10:32] LABS: Absolute Neutrophil Count 17.5 X10^3/uL (2.0-7.7)
== END 2024-09-28 11:06 | disposition home or self-care (01) | DRG 841 ==
LOC: ED 17:31 → MS3 18:23
PROVIDERS: Admitting Provider Internal Medicine; Emergency Provider Surgery; PCP Preventive Medicine Occupational Medicine; Visit Provider Internal Medicine
DX: C91.10 Chronic lymphocytic leukemia of B-cell type not having achieved remission (principal); N30.00 Acute cystitis without hematuria; E03.9 Hypothyroidism, unspecified; I10 Essential (primary) hypertension; E78.00 Pure hypercholesterolemia, unspecified; I89.0 Lymphedema, not elsewhere classified; Z79.82 Long term (current) use of aspirin; Z79.899 Other long term (current) drug therapy; Z86.73 Personal history of transient ischemic attack (TIA), and cerebral infarction without residual deficits
CPT/HCPCS: 36415; 71275; 74174; 80048; 80053; 81001; 83690; 83735; 84100; 84484; 85025; 85027; 87086; 87088; 93005; 97802; 99284; 99285; Q9967; A4216; J2405

== ENCOUNTER 2024-10-06 07:50 | Observation (INO) | payer MEDICARE, OTHER, SELFPAY ==
--- NOTE | 2024-09-22 11:59 | PAT.ANESEVAL ---
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 When Was Last Pacemaker Check QUESTION #4 FULL TEXT: You/Your Family Experience fever (hyperthermia) with Anesthesia Last Oral Intake Last Oral intake: Last Oral Intake NPO since Meds taken in AM with sips of water? Meds patient instructed to take am of surgery PONV PONV - graduate school dean: PONV - graduate school dean Female Yes 09/22/24 08:23 HX of Motion Sickness No 09/22/24 08:23 HX of N/V After Surgery No 09/22/24 08:23 Non-Smoker Yes 09/22/24 08:23 Duration of Surgery greater No 09/22/24 08:23 than 60 minutes Number of Risk Factors 2 09/22/24 08:23 PONV Score Moderate Risk 09/22/24 08:23 Height & Weight Height & Weight: Anesthesia: Height & Weight Height 6 ft 08/25/24 06:59 Respiratory Assessment Respiratory Assessment - graduate school dean: Respiratory Tract Infection Hx - graduate school dean Hx Respiratory Tract Infection No 09/22/24 08:23 STOP Sleep Apnea STOP Sleep Apnea - graduate school dean: STOP Sleep Apnea - graduate school dean Hx Hypertension Yes: CONTROLLED ON MED 09/22/24 08:23 Hx Sleep Apnea No 09/22/24 08:23 CPAP No 09/22/24 08:23 BIPAP No 09/22/24 08:23 Do you snore loudly (louder No 09/22/24 08:23 than talking or can be heard Do you often feel tired/ No 09/22/24 08:23 fatigued/ sleepy during daytime? Has anyone observed you stop No 09/22/24 08:23 breathing during sleep? STOP Results Negative 04/09/25 08:23 QUESTION #5 FULL TEXT : Do you snore loudly (louder than talking or can be heard through closed doors)? Tobacco Use History Tobacco Use History - graduate school dean: Tobacco Use History - graduate school dean Tobacco Use Smoking Status Never smoker 09/22/24 08:23 Hx Tobacco Use No 09/22/24 08:23 Years Smoking Packs Smoked per Day Smoking Cessation Date was within the last 15 years Hx Smoking Cessation Date Hx Smoking Cessation Counseling Hematologic Medial History Hematologic Hx - graduate school dean: Hematologic Medical Hx - writing tutor Hx of Blood Transfusion No 09/22/24 08:23 Hx of Transfusion in last 3 No 09/22/24 08:23 Months Date of Last Transfusion (if within last 3 months) Ever experience any problems No 09/22/24 08:23 with transfusion(s)? Specify any problems Hx of Preganancy in last 3 N/A 09/22/24 08:23 Months Nurse Filling Out Transfusion VCHRISTIN 09/22/24 08:23 & Questions: Date: 09/22/24 09/22/24 08:23 Time: 09/22/24 08:23 Patient unable to answer at this time (ie. confused, unrespo /Reproduction History /Reproductive History - graduate school dean: /Reproductive Hx- graduate school dean Hx Now Gestational Age (in weeks): EDC: Hx Hx Para Hx Section SAB PFSH Medical History (Updated 09/22/24 @ 10:22 by Ysabel Molina) History of stress test Wears hearing aid Wears glasses Cancer Arthritis Anemia High cholesterol Easy bruising Excessive bleeding History of leukemia TIA (transient ischemic attack) Non-smoker Cardiology follow-up encounter History of rheumatic fever History of neuropathy History of thyroid disease History of gastroesophageal reflux (GERD) History of osteoarthritis History of high cholesterol History of hypertension History of hearing problem History of glaucoma History of arthritis Infectious colitis Prerenal azotemia Lymphedema of left upper extremity Left upper extremity swelling CLL (chronic lymphocytic leukemia) Abdominal pain Recurrent right inguinal hernia Inguinal hernia Bradycardia Encounter for education Swelling of left hand NHL (non-Hodgkin's lymphoma) Seroma after procedure CLL (chronic lymphocytic leukemia) Elevated LDH Night sweats Axillary adenopathy Stroke med port removal Hypothyroidism Hypertension Hyperlipidemia Glaucoma Seasonal allergies History of non-Hodgkin's lymphoma Home Medications ?Medication ?Instructions ?Recorded ?Last Taken ?Type latanoprost 0.005 % eye drops 1 drp EACH EYE QHS Check with 03/27/15 08/24/24 History primary doctor pravastatin 80 mg tablet 80 mg PO QHS Check with primary 06/15/19 08/24/24 History doctor carisoprodol 350 mg tablet 350 mg PO 4X/DAY PRN PRN Muscle 12/23/19 Unknown History Spasm mirtazapine 30 mg tablet 30 mg PO QHS Check with primary 12/23/19 08/24/24 History doctor pantoprazole 40 mg tablet,delayed 40 mg PO DAILY reflux 11/02/20 08/24/24 History release (Protonix) ferrous sulfate 140 mg (45 mg 140 mg PO DAILY 03/05/23 08/25/24 History iron) tablet,extended release levothyroxine 88 mcg tablet 112 mcg PO DAILY Check with 04/02/23 08/25/24 History primary doctor aspirin 81 mg chewable tablet 81 mg PO DAILY Check with primary 12/31/23 09/22/24 History doctor hydralazine 100 mg tablet 100 mg PO BID 04/17/24 08/24/24 History liothyronine 5 mcg tablet 10 mcg PO DAILY 04/17/24 08/24/24 History losartan 100 mg tablet 100 mg PO DAILY 04/17/24 08/25/24 History venlafaxine 150 mg 150 mg PO DAILY 04/17/24 08/24/24 History capsule,extended release 24 hr ibrutinib 420 mg tablet 420 mg PO QDAY 30 days #30 tabs 05/24/24 09/22/24 Rx Allergy/AdvReac Type Severity Reaction Status Date / Time No Known Allergies Allergy Verified 09/22/24 08:09 Family History Mother Arthritis Hypertension Heart disease Father Hypertension Hyperlipidemia Heart disease Arthritis Sister Colon cancer Uncle Diabetes Surgical History (Updated 09/22/24 @ 08:23 by Ysabel Molina) History of cardiac catheterization Hx of hernia repair History of bilateral knee replacement Hx of right inguinal hernia repair History of surgical procedure on eye proper using laser s/p axillary lymph node biopsy History of bilateral inguinal hernia repair Status post glaucoma surgery S/P cardiac catheterization BILATERAL SHOULDER SURGERY Hx of tonsillectomy H/O cataract extraction History of back surgery Social History household members: spouse Smoking Status: Never smoker alcohol intake: current alcohol intake frequency: a few times a month substance use type: does not use additional social history: pt denies vaping, denies marijuana use denies edibles, denies blood clotting disorder uses aspirin daily uses ibuprofen as needed Audit: Pertinent Findings Pertinent Findings EKG Perinent findings: 04/17/2024. Normal sinus rhythm 66 bpm. Septal infarct, age undetermined. Echo (EF%) pertinent findings: 06/22/2015. EF 65%. Right ventricular pressure 33 mmHg Recommendation Anesthesia Recommendation Anesthesia recommendation: OPTIMIZED for anesthesia
[2024-10-06] VITALS (11 sets, daily range): BP systolic 95–141; BP diastolic 47–67; PULSE 65–98; RESP 2–18; TEMP 36.3–36.9; O2SAT 92–98; BMI 26.4
[2024-10-06] MEDS: Lactated Ringers 1,000 ML 15 ML IV (06:46)
--- NOTE | 2024-10-06 06:50 | PRE.ANES_ITS ---
ASA Classification* ASA Classification ASA Classification: 3 Assessment & Plan Anesthesia* Anesthesia Assessment Anesthesia Assessment: Discussed sedation and/or anesthesia options, risks, benefits, and alternatives with patient/parents/legal guardian/POA. Questions invited. The patient/parents/legal guardian/POA seems to understand and agrees to proceed with anesthesia plan. Reviewed the physical assessment, medical history, allergy history and patient home medications list prior to surgery/procedure/anesthetic and documented any changes. Performed airway and anesthesia risk assessments. Anesthesia Type Anesthesia Type: General Anesthesia Focused Assessment* Temperature: 97.9 F Pulse Rate: 78 Blood Pressure: 125/58 Respiratory Rate: 16 Pulse Ox: 96 Airway Assessment Mouth opens: >3 cm Mallampati Score: II Focused Labs Anesthesia Preop lab: CBC WBC 25.3 K/mm3 (4.4-11.0) H 09/28/24 06:10 5 RBC 4.52 M/mm3 (4.6-6.2) L 09/28/24 06:10 09/28/24 Hgb 12.9 g/dL (13.0-16.5) L 09/28/24 06:10 5 Hct 38.2 % (40-54) L 09/28/24 06:10 09/28/24 Plt Count 166 K/mm3 (150-450) 09/28/24 06:10 09/28/24 CHEMISTRY Potassium 3.6 mmol/L (3.3-5.1) 09/28/24 06:10 09/28/24 Sodium 136 mmol/L (133-145) 09/28/24 06:10 09/28/24 Magnesium 2.0 mg/dL (1.5-2.2) 09/28/24 06:10 09/28/24 Phosphorus 2.0 mg/dL (2.7-4.5) L 09/28/24 06:10 09/28/24 BUN 21 mg/dL (4-19) H 09/28/24 06:10 09/28/24 Creatinine 1.10 mg/dL (0.70-1.20) 09/28/24 06:10 09/28/24 Glucose 124 mg/dL (70-99) H 09/28/24 06:10 09/28/24 TSH 14.000 uIU/mL (0.300-4.200) H 08/18/24 12:55 0 08/18/24 COAG PT 12.7 SECONDS (11.7-14.9) 10/28/19 09:29 Pre-Assessment Diagnosis/Proposed Procedure Planned Operative Procedure(s): (L) Liposuction left upper extremity Anesthesia History Anesthesia History - direct support worker: Anesthesia History - direct support worker Hx Hospitalization Yes: [facility] 09/22/24 08:23 IN 2023 Any Problems With Anesthesia No 09/22/24 08:23 Cholinesterase deficiency No 09/22/24 08:23 You/Your Family Experience No 09/22/24 08:23 fever (hyperthermia) with Relationship Recent Exposure to Contagious No 10/06/24 06:38 Disease Does patient have nerve No 09/22/24 08:23 stimulator Patient instructed to have device shut off --Does patient have Pacemaker No 10/06/24 06:38 or ICD? When Was Last Pacemaker Check QUESTION #4 FULL TEXT: You/Your Family Experience fever (hyperthermia) with Anesthesia Last Oral Intake Last Oral intake: Last Oral Intake NPO since 20:00 10/06/24 06:38 Meds taken in AM with sips of Yes 10/06/24 06:38 water? Meds patient instructed to take am of surgery PONV PONV - direct support worker: PONV - direct support worker Female Yes 09/22/24 08:23 HX of Motion Sickness No 09/22/24 08:23 HX of N/V After Surgery No 09/22/24 08:23 Non-Smoker Yes 09/22/24 08:23 Duration of Surgery greater No 09/22/24 08:23 than 60 minutes Number of Risk Factors 2 09/22/24 08:23 PONV Score Moderate Risk 09/22/24 08:23 Height & Weight Height & Weight: Anesthesia: Height & Weight Height 6 ft 10/06/24 06:38 Weight: 88.3 kg 10/06/24 06:38 Body Mass Index (BMI) 26.4 10/06/24 06:38 Respiratory Assessment Respiratory Assessment - direct support worker: Respiratory Tract Infection Hx - direct support worker Hx Respiratory Tract Infection No 09/22/24 08:23 STOP Sleep Apnea STOP Sleep Apnea - direct support worker: STOP Sleep Apnea - direct support worker Hx Hypertension Yes: CONTROLLED ON MED 09/26/24 18:45 Hx Sleep Apnea No 09/26/24 18:45 CPAP No 09/26/24 18:45 BIPAP No 09/26/24 18:45 Do you snore loudly (louder No 09/22/24 08:23 than talking or can be heard Do you often feel tired/ No 09/22/24 08:23 fatigued/ sleepy during daytime? Has anyone observed you stop No 09/22/24 08:23 breathing during sleep? STOP Results Negative 09/22/24 08:23 QUESTION #5 FULL TEXT : Do you snore loudly (louder than talking or can be heard through closed doors)? Tobacco Use History Tobacco Use History - direct support worker: Tobacco Use History - direct support worker Tobacco Use Smoking Status Never smoker 09/26/24 18:45 Hx Tobacco Use No 09/26/24 18:45 Years Smoking Packs Smoked per Day Smoking Cessation Date was within the last 15 years Hx Smoking Cessation Date Hx Smoking Cessation Counseling Hematologic Medial History Hematologic Hx - direct support worker: Hematologic Medical Hx - documentation designer Hx of Blood Transfusion No 09/22/24 08:23 Hx of Transfusion in last 3 No 09/22/24 08:23 Months Date of Last Transfusion (if within last 3 months) Ever experience any problems No 09/22/24 08:23 with transfusion(s)? Specify any problems Hx of Preganancy in last 3 N/A 09/22/24 08:23 Months Nurse Filling Out Transfusion VCHRISTIN 09/22/24 08:23 & Questions: Date: 09/22/24 09/22/24 08:23 Time: 09/22/24 08:23 Patient unable to answer at this time (ie. confused, unrespo /Reproduction History /Reproductive History - direct support worker: /Reproductive Hx- direct support worker Hx Now Gestational Age (in weeks): EDC: Hx Hx Para Hx Section SAB Active Medications Active Medications: Current Medications Generic Name Dose Route Start Last Admin Trade Name Freq PRN Reason Stop Dose Admin Cefazolin Sodium 2 gm/ N/A 20 mls @ 400 mls/hr 10/06/24 07:30 IV 10/06/24 07:32 INTRAOP ONE Lactated Ringer's 1,000 mls @ 15 mls/hr 10/06/24 06:15 IV .Q48H KARON PFSH Medical History Abdominal pain History of stress test Wears hearing aid Wears glasses Cancer Arthritis Anemia High cholesterol Easy bruising Excessive bleeding History of leukemia TIA (transient ischemic attack) Non-smoker Cardiology follow-up encounter History of rheumatic fever History of neuropathy History of thyroid disease History of gastroesophageal reflux (GERD) History of osteoarthritis History of high cholesterol History of hypertension History of hearing problem History of glaucoma History of arthritis Infectious colitis Prerenal azotemia Lymphedema of left upper extremity Left upper extremity swelling CLL (chronic lymphocytic leukemia) Recurrent right inguinal hernia Inguinal hernia Bradycardia Encounter for education Swelling of left hand NHL (non-Hodgkin's lymphoma) Seroma after procedure CLL (chronic lymphocytic leukemia) Elevated LDH Night sweats Axillary adenopathy Stroke med port removal Hypothyroidism Hypertension Hyperlipidemia Glaucoma Seasonal allergies History of non-Hodgkin's lymphoma Home Medications ?Medication ?Instructions ?Recorded ?Last Taken ?Type latanoprost 0.005 % eye drops 1 drp EACH EYE QHS Check with 03/27/15 09/25/24 History primary doctor pravastatin 80 mg tablet 80 mg PO QHS Check with prim anthony 06/15/19 09/24/24 History doctor carisoprodol 350 mg tablet 350 mg PO 4X/DAY PRN Muscle Spasm 12/23/19 Unknown History mirtazapine 30 mg tablet 30 mg PO QHS Check with prim anthony 12/23/19 09/24/24 History doctor pantoprazole 40 mg tablet,delayed 40 mg PO DAILY reflu x 11/02/20 10/05/24 History release (Protonix) ferrous sulfate 140 mg (45 mg 140 mg PO DAILY 03/05/23 09/24/24 History iron) tablet,extended release aspirin 81 mg chewable tablet 81 mg PO DAILY Check wit h primary 12/31/23 09/22/24 History doctor hydralazine 100 mg tablet 100 mg PO BID 04/17/2410/06 History liothyronine 5 mcg tablet 10 mcg PO DAILY 04/17/24 History losartan 100 mg tablet 100 mg PO DAILY 04/17/24 History venlafaxine 150 mg 150 mg PO DAILY 04/17/2405/10 History capsule,extended release 24 hr ibrutinib 420 mg tablet 420 mg PO QDAY 30 days #30 t abs 05/24/24 09/22/24 Rx ammonium lactate 12 % lotion 1 applic topical BID 09/1409/24/24 History levothyroxine 100 mcg tablet 100 mcg PO DAILY 09/26/24 10/06/24 History sucralfate 1 gram tablet (Carafate) 1 g PO BID PRN ref lux #14 tabs 09/26/24 Unknown Rx Allergy/AdvReac Type Severity Reaction Status Date / Time No Known Allergies Allergy Verified 10/06/24 06:35 Family History Mother Arthritis Hypertension Heart disease Father Hypertension Hyperlipidemia Heart disease Arthritis Sister Colon cancer Uncle Diabetes Surgical History History of cardiac catheterization Hx of hernia repair History of bilateral knee replacement Hx of right inguinal hernia repair History of surgical procedure on eye proper using laser s/p axillary lymph node biopsy History of bilateral inguinal hernia repair Status post glaucoma surgery S/P cardiac catheterization BILATERAL SHOULDER SURGERY Hx of tonsillectomy H/O cataract extraction History of back surgery Social History household members: spouse housing: house Smoking Status: Never smoker alcohol intake: current alcohol intake frequency: a few times a month substance use type: does not use additional social history: pt denies vaping, denies marijuana use denies edibles, denies blood clotting disorder uses aspirin daily uses ibuprofen as needed Review of Systems (Anesthesia) ROS Narrative System reviewed and no additional complaints, except as documented.
--- NOTE | 2024-10-06 07:29 | HP.PCM.SX_ITS ---
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 Roca for chronic suppression of the disease) who presents today for left upper extremity lymphedema evaluation. Patient reports that he developed lymphedema several months after the completion axillary dissection, but that it went away, and then returned a couple of years ago and got persistently worse. He reports for the past year or so and no longer comes and goes, but his left upper extremity is persistently swollen from the hand, wrist, and distal arm. He has been working with our physical therapy team for years and has pumps and lymphedema wear, which helps but does not alleviate the problem. He has not yet had any bouts of cellulitis. Patient follows with Dr. Godfrey, and is getting a left knee replacement this month. He has been off of his CLL medication in anticipation of the surgery. Patient does not smoke. He does not have a history personally or within his family of bleeding or clotting problems. He has never had problems with anesthesia. 23 July 2024: Patient doing well overall after his left knee replacement with Dr. Godfrey. Patient was dealing with these orthopedic issues, but is now ready to work on the lymphedema. He has been off of his CLL medicine and is following up with Dr. Roca. He reports persistent left upper extremity lymphedema, that is not improving while using his pump and his compression garments. He follows with [facility], Occupational Therapy. He would like to continue to pursue options. Minimal improvement with elevation. He thinks it is getting worse. He has not yet had a bout of cellulitis, but is concerned about this. Date of Procedure: 08/25/24 Procedure Performed: Indocyanine green lymphography (ICGL) of LEFT UPPER EXTREMITY (CPT 88720) FINDINGS: Grading of [facility] Stage 4 with no obvious patent lymphatic vessels and extensive dermal backflow in the dorsal hand. There was extensive stardust patterns in the dorsal hand. In the radial and volar forearm, there was one area with reticular patterns. IMMEDIATE SCAN (3 minutes) Reach of ICG: To the middle of the forearm Number of linear channels: 0 obvious forearm channels at 3 min (small and poorly defined channels after 20 min seen, but limited) Orientation of the linear channels: N/A Any reticular (tortuous) channels: only on radial forearm after 20 min Any collaterals: No Dermal backflow: Yes, in the hand 02 September 2024: Discussed the lymphogram from 25 August 2024. There were minimal linear channels and sluggish flow from the hand to the forearm. Patient with persistent bulky disease and feeling of heaviness in the LUE. He does not feel like any of his lymphedema garments are working anymore or his pumps. Swelling is all of the time. 01 October 2024: Here for preoperative evaluation to discuss postoperative protocol and expectations, as well as risk benefits and alternatives to the procedure. His case is scheduled for this coming Friday. Current Encounter (DATE OF SURGERY H&P UPDATE): I saw and examined the patient this morning in pre-operative holding. We discussed risks and benefits of today's surgery and they would like to proceed. NO CHANGE in health history since last seen and evaluated. Ready to proceed with surgery. COUNT INCLUDES THE [facility] Medical History Abdominal pain History of stress test Wears hearing aid Wears glasses Cancer Arthritis Anemia High cholesterol Easy bruising Excessive bleeding History of leukemia TIA (transient ischemic attack) Non-smoker Cardiology follow-up encounter History of rheumatic fever History of neuropathy History of thyroid disease History of gastroesophageal reflux (GERD) History of osteoarthritis History of high cholesterol History of hypertension History of hearing problem History of glaucoma History of arthritis Infectious colitis Prerenal azotemia Lymphedema of left upper extremity Left upper extremity swelling CLL (chronic lymphocytic leukemia) Recurrent right inguinal hernia Inguinal hernia Bradycardia Encounter for education Swelling of left hand NHL (non-Hodgkin's lymphoma) Seroma after procedure CLL (chronic lymphocytic leukemia) Elevated LDH Night sweats Axillary adenopathy Stroke med port removal Hypothyroidism Hypertension Hyperlipidemia Glaucoma Seasonal allergies History of non-Hodgkin's lymphoma Home Medications ?Medication ?Instructions ?Recorded ?Last Taken ?Type latanoprost 0.005 % eye drops 1 drp EACH EYE QHS Check with 03/27/15 09/25/24 History primary doctor pravastatin 80 mg tablet 80 mg PO QHS Check with prim anthony 06/15/19 09/24/24 History doctor carisoprodol 350 mg tablet 350 mg PO 4X/DAY PRN Muscle Spasm 12/23/19 Unknown History mirtazapine 30 mg tablet 30 mg PO QHS Check with prim anthony 12/23/19 09/24/24 History doctor pantoprazole 40 mg tablet,delayed 40 mg PO DAILY reflu x 11/02/20 10/05/24 History release (Protonix) ferrous sulfate 140 mg (45 mg 140 mg PO DAILY 03/05/23 09/24/24 History iron) tablet,extended release aspirin 81 mg chewable tablet 81 mg PO DAILY Check wit h primary 12/31/23 5 History doctor hydralazine 100 mg tablet 100 mg PO BID 04/17/2410/06 History liothyronine 5 mcg tablet 10 mcg PO DAILY 04/17/24 History losartan 100 mg tablet 100 mg PO DAILY 04/17/24 History venlafaxine 150 mg 150 mg PO DAILY 04/17/2405/10 History capsule,extended release 24 hr ibrutinib 420 mg tablet 420 mg PO QDAY 30 days #30 t abs 05/24/24 09/22/24 Rx ammonium lactate 12 % lotion 1 applic topical BID 09/1409/24/24 History levothyroxine 100 mcg tablet 100 mcg PO DAILY 09/26/24 10/06/24 History sucralfate 1 gram tablet (Carafate) 1 g PO BID PRN ref lux #14 tabs 09/26/24 Unknown Rx Allergy/AdvReac Type Severity Reaction Status Date / Time No Known Allergies Allergy Verified 10/06/24 06:35 Family History Mother Arthritis Hypertension Heart disease Father Hypertension Hyperlipidemia Heart disease Arthritis Sister Colon cancer Uncle Diabetes Surgical History History of cardiac catheterization Hx of hernia repair History of bilateral knee replacement Hx of right inguinal hernia repair History of surgical procedure on eye proper using laser s/p axillary lymph node biopsy History of bilateral inguinal hernia repair Status post glaucoma surgery S/P cardiac catheterization BILATERAL SHOULDER SURGERY Hx of tonsillectomy H/O cataract extraction History of back surgery Social History household members: spouse housing: house Smoking Status: Never smoker alcohol intake: current alcohol intake frequency: a few times a month substance use type: does not use additional social history: pt denies vaping, denies marijuana use denies edibles, denies blood clotting disorder uses aspirin daily uses ibuprofen as needed Vital Signs Vital Signs Vital Signs: 10/06/24 06:38 10/06/24 06:38 10/06/24 06:51 Temperature 97.9 F 97.9 F Temperature Source Temporal Pulse Rate 78 78 Respiratory Rate 16 16 Respiratory Pattern Normal Blood Pressure 125/58 H 125/58 H Blood Pressure Mean 80 Blood Pressure Source Monitor Blood Pressure Position Semi-Fowlers Blood Pressure Location Right Arm Pulse Ox 96 96 Oxygen Delivery Method Room Air Weight Weight: 194 lb 10.691 oz Body Mass Index (BMI) 26.4 Physical Exam Narrative Persistent left upper extremity with bulky lymphedema, Campisi stage III. Lymphedema feels firm. No improvement with elevation. Well-healed left axillary scar. No palpable axillary lymphadenopathy. Assessment & Plan Assessment/Plan (1) Lymphedema of left upper extremity: PLAN: Patient would benefit from a staging lymphagram to better examine the physiology of his lymphedema and obtain a baseline. I talked the patient about debulking procedures including liposuction, and we talked about the risks of bleeding and wound healing problems, as well as damage to nerves. I also talked to him about physiologic procedures that could also be done, including bypass procedures. We will schedule lymphogram for later this fall. CPT codes for insurance prior authorization are as follows: [id number] Plan from 23 July 2024: Patient has worsening disease since I saw him several months ago. He reports that his pump and his compression are not working, and he is not using them consistently because they do not work. He would like to pursue liposuction. We talked about using the pumps and compressions as an adjuvant. I think the first step is to do a lymphogram to better characterize his disease. Patient happy with the plan. I talked to him briefly about the risks, benefits, and alternatives to liposuction and lymphovenous bypass. We talked about particularly liposuction and wound healing problems, as well as damage to surrounding structures and nerves, as well as muscle fascia and possible compartment syndrome. We talked about the need for reconstruction if there are wound problems, requiring multiple surgeries and potentially reconstructions with flaps or grafts. Plan for lymphogram We will also order a left upper extremity ultrasound to make sure no cl otting/chronic DVT PLAN FROM 02 SEPTEMBER 2024: Discussed results of lymphogram today as well as the MICHAELE US (no DVT) Campisi stage III lymphedema left upper extremity We talked about risks, benefits, and alternatives to left upper extremity liposuction for treatment of his bulky lymphedema. This would be to improve size and feelings of heaviness. I talked him extensively about the risks of w ound healing complications (he has thin skin), damage to surrounding structures (nerves, arteries, and lymphatics, as well as tendons and muscles), nerve pain , hematoma /bleeding, infection, worsening of swelling, DVT/PE, and other complications of anesthesia such as stroke and . I do not think a physiologic procedure such as a lymphovenous anastomoses at this point, with the severe damage to the lymphatic pathways and severe bulky disease (difficult to find lymphatics), would be of much benefit, and we should start with liposuction at this point. Given the high risk of wound complications, I talked to the patient about starting with one area on the forearm and planning to stage the left upper extremity liposuction in multiple successive treatments. He was in agreement with this plan and would like to proceed. Plan for left upper extremity liposuction, focusing first on the forearm. CPT codes for insurance prior authorization are as follows: [id number] Plan from 01 October 2024: I talked the patient extensively about the risk of wound healing complications including skin necrosis need for debridement and coverage of soft tissue defects with flaps or skin grafts. He understands that he has thin skin that may not tolerate liposuction well. He also understands there may be some residual contour abnormalities or some residual excess skin. He would like to proceed with the surgery. I talked further about damage to surrounding structures, risk of compartment syndrome, risk of nerve pain, risk of infection, risk of failure to obtain the desired result. Again discussed need for multiple treatments. We talked about postoperative compression protocols. Patient happy with the plan and will likely proceed. Plan for left upper extremity liposuction with sedation and tumescent anesthesia. INTERVAL H&P PLAN, DATE OF SURGERY: We will proceed with surgery today. One change is that we will do general anesthesia. Patient understands risks/benefits of this and would like to proceed with general anesthesia.
[2024-10-06] MEDS: Cefazolin 2 GM in Syringe IV (07:40)
[2024-10-06] MEDS: Lidocaine 1% /Epi 1:100 (20ml) 20 ML Vial (08:06)
[2024-10-06] MEDS: Bupiv/Epi 0.25% 30 ML Vial (08:06)
[2024-10-06] MEDS: TAS 0.05% 1000 mls w/ LR OPERA.SITE (08:07)
--- NOTE | 2024-10-06 09:23 | PCM.POST.ANE ---
Anesthesia: Postop Eval I Current Vital Signs Temperature: 98.3 F Pulse Rate: 98 Blood Pressure: 133/60 Respiratory Rate: 2 Pulse Ox: 97 Oxygen Delivery Method: Room Air Assessment Airway patent: Yes Spontaneous unlabored respirations: Yes Mental status: Awake and Calm nausea: No Vomiting: No Anesthesia Complication: No Fluid Hydration Crystalloid volume administer (ml): 1,600 Total IV fluid infused: 1,600 Progress Note Anesthesia document: Postop Eval 1 completed: Yes
--- NOTE | 2024-10-06 09:34 | PCM.OPRPT ---
Operative Report (Standard) Operative Information Date of Procedure: 10/06/24 Pre-Operative Diagnosis: Left upper extremity lymphedema, Stage III (bulky disease) Post-Operative Diagnosis: Same Surgery/Procedure Performed: 1) left upper extremity lymphedema liposuction, CPT 37822 compensation programs manager: Yes Electric Distribution Engineer: Thea Colvin Tasks completed by rn first assistant: Other (Holding the limb) Additional automotive service assistant?: No Type of Anesthesia: General/Supplemental (1 L of tumescent solution (1 mg epinephrine, 50 cc of 1% lidocaine, and 1 L of lactated Ringer's) . Also 5 cc of 1% lidocaine with epinephrine) RN Documented Start/Stop Times: Operation Date: 10/06/24 07:30 Case Time Into Pre-Op 10/06/24 06:13 Anesthesia Start 10/06/24 07:30 Into Room 10/06/24 07:30 Out of Pre-Op 10/06/24 07:30 Procedure Start 10/06/24 08:07 Procedure End 10/06/24 09:13 Anesthesia End 10/06/24 09:17 Out of Room 10/06/24 09:17 Into Recovery 10/06/24 09:20 Procedure Start Time: 08:07 Procedure Stop Time: 09:13 Select all DRAINS/GRAFTS/IMPLANTS that apply: None Estimated Blood Loss: 50 cc Specimen collected: No Description of surgery: Indications: Luther Roque is a delightful 79-year-old male with left 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 He has bulky stage III disease that does not change with position or with decompressive therapy (does not change much). He underwent a lympha gram with me and he did not have any pain channels for any physiologic interventions. I therefore talked to him about debulking his disease with liposuction. We talked about the risks, benefits, and alternatives to this procedure, especially the risks of bleeding and wound healing problems with skin necrosis/fluid collections. He elected to proceed. Procedure details: Patient was correct identified in preoperative holding and his left upper extremity was marked. He was taken back to the operating room where he was a prepped and draped in sterile fashion. All proper timeouts were performed. 5 cc of 1% lidocaine with epinephrine was used to inject the planned stab incisions along the left upper extremity. 11 blade scalpel was used to make the stab incisions. The left forearm was injected with 300 cc of tumescent solution. It was given 20 minutes to take effect. Without using an Esmarch, an arm tourniquet was then inflated to 250 mmHg. We began using a 4 mm Tamica cannula for liposuction and were able to remove 200 cc of Lipo aspirate from the forearm and the dorsum of the hand. We then wrapped the left forearm with Kerlix and an Franklin wrap for compression, and let down the tourniquet. Attention was then turned to the arm where an additional 700 cc of tumescent solution was injected and given 20 minutes to take effect. Liposuction was then performed with a 4 mm Tamica cannula on the arm for additional removal of 550 cc of Lipo aspirate. The total Lipo aspirate removed with 750 cc. The left forearm was then unwrapped and examined. There were no signs of hematoma. The left upper extremity was then rewrapped with Kerlix and Franklin wrap's for some compression from the fingers to the upper arm. The incisions were intentionally left open for draining. The patient tolerated the procedure well. He was awakened and taken to the PACU in stable condition. Tumescent injected: 1 L Lipo aspirate: 750 cc Postoperative plan: Patient will be admitted to the floor and I will remove the dressings this afternoon to examine the left upper extremity and rewrap them. Plan for 24 hours of IV antibiotics followed by 1 week of Keflex to prevent cellulitis. Patient happy with the plan. Surgical Findings: We were able to debulk the forearm and arm with the liposuction (there is a clear reduction in heaviness in size) Complications Complications: No Admit VTE Documentation VTE Mechan Device Prophylaxis: SCD's
--- NOTE | 2024-10-06 10:23 | POSTOPAN2_ITS ---
Anesthesia Postop Eval I Sum Postop Eval Completion status Anesthesia document: Postop Eval 1 completed: Yes Anesthesia Postop Eval I Summary Anesthesia Postop Eval I Summary: Anesthesia Postop Eval I: Assessment Summary Airway patent Yes 10/06/24 09:24 PERSONNEL [email or web address] Spontaneous unlabored Yes 10/06/24 09:24 PERSONNEL [email or web address] respirations Mental status Awake,Calm 10/06/24 09:24 PERSONNEL [email or web address] nausea No 10/06/24 09:24 PERSONNEL [email or web address] Vomiting No 10/06/24 09:24 PERSONNEL [email or web address] Anesthesia Postop Eval I: Fluid Summary Crystalloid volume administer 1,600 10/06/24 09:24 PERSONNEL [email or web address] (ml) Colloids volume administered ( ml) Blood Product volume administered (ml) Total IV fluid infused 1,600 10/06/24 09:24 PERSONNEL [email or web address] Anesthesia Postop Eval I: Summary Notes Anesthesia Complication No 10/06/24 09:24 PERSONNEL [email or web address] Anesthesia Complication Comment: Post-operative progress note Anesthesia: Postop Eval II Evaluation Mental status: Awake Pain Level: 0 nausea: No Vomiting: No
--- NOTE | 2024-10-06 10:23 | PCM.POSTANE2 ---
Anesthesia Postop Eval I Sum Postop Eval Completion status Anesthesia document: Postop Eval 1 completed: Yes Anesthesia Postop Eval I Summary Anesthesia Postop Eval I Summary: Anesthesia Postop Eval I: Assessment Summary Airway patent Yes 10/06/24 09:24 [email or web address] Spontaneous unlabored Yes 10/06/24 09:24 [email or web address] respirations Mental status Awake,Calm 10/06/24 09:24 [email or web address] nausea No 10/06/24 09:24 [email or web address] Vomiting No 10/06/24 09:24 [email or web address] Anesthesia Postop Eval I: Fluid Summary Crystalloid volume administer 1,600 10/06/24 09:24 [email or web address] (ml) Colloids volume administered ( ml) Blood Product volume administered (ml) Total IV fluid infused 1,600 10/06/24 09:24 [email or web address] Anesthesia Postop Eval I: Summary Notes Anesthesia Complication No 10/06/24 09:24 [email or web address] Anesthesia Complication Comment: Post-operative progress note Anesthesia: Postop Eval II Evaluation Mental status: Awake Pain Level: 0 nausea: No Vomiting: No
[2024-10-06] MEDS: oxyCODONE 5 MG Tablet PO (11:05)
[2024-10-06] MEDS: Acetaminophen 325 MG Tablet 650 MG PO (11:05)
[2024-10-06] MEDS: Pantoprazole Sodium 40 MG Tablet PO (11:05)
--- NOTE | 2024-10-06 14:17 | PCM.PN.SRG ---
Subjective Subjective Pain controlled. Voided. Ate post op. Doing well. Objective Data Objective Data Vital Signs: Vital Signs Temp Pulse Resp BP Pulse Ox O2 Del Method O2 Flow Rate 97.4 F L 80 14 115/64 98 Nasal Cannula 2 10/06/24 13:30 10/06/24 13:30 10/06/24 13:30 10/06/24 13:30 10/06/24 13:30 10/06/24 13:30 10/06/24 13:30 Oxygen Flow Rate (L/min) 2 Oxygen Delivery Method Nasal Cannula Weight: 194 lb 10.691 oz Body Mass Index (BMI) 26.4 Intake & Output: Intake and Output for Last 24 Hours 10/04/24 10/05/24 10/06/24 23:59 23:59 23:59 Output Total 600 / 600 Balance -600 / -600 Physical Exam Narrative LUE: Wrap taken down. No hematoma. 5/5 inspector welded parts strength. Sensation to light touch intact throughout LUE. Compartments all soft. Assessment & Plan Assessment/Plan (1) Lymphedema of left upper extremity: PLAN: POD 0 LUE liposuction. Expected course. Re-wrapped with compression. Plan for rest and elevation of LUE tonight. Anticipate DC in the AM
[2024-10-06] MEDS: CLARIFY ORDER NOTE (16:41)
[2024-10-06] MEDS: Cefazolin 2 GM in Syringe 10 ML IV (22:15)
[2024-10-07 00:33] VITALS: BP 138/53; PULSE 75; RESP 16; TEMP 36.8; O2SAT 95
[2024-10-07 00:37] VITALS: PULSE 75
[2024-10-07] MEDS: hydrALAZINE 50 MG Tablet 100 MG PO (00:37)
[2024-10-07] MEDS: Venlafaxine XR 150 MG Capsule PO (00:37)
[2024-10-07] MEDS: Pravastatin 80 MG Tablet PO (00:37)
[2024-10-07] MEDS: Losartan Potassium 100 MG Tablet PO (00:38)
[2024-10-07] MEDS: Mirtazapine 30 MG Tablet PO (00:39)
[2024-10-07] MEDS: Latanoprost 0.005% 1 Bottle 1 DRP EACH EYE (00:43)
[2024-10-07] MEDS: Cefazolin 2 GM in Syringe 10 ML IV (05:21)
[2024-10-07] MEDS: 0.9% Saline Lock 10 ML Syringe IV (05:21)
[2024-10-07] MEDS: Liothyronine 5 MCG Tablet 10 MCG PO (05:26)
[2024-10-07] MEDS: Levothyroxine 100 MCG Tablet PO (05:26)
[2024-10-07 06:30] VITALS: BP 134/55; PULSE 75; RESP 16; TEMP 36.4; O2SAT 95
--- NOTE | 2024-10-07 08:41 | WOUNDNOTE ---
Dr Marsh in to reassess the left arm. removed the JACQUE wrap and dressings. there was a small amount of drainage noted. applied new dry dressings, wrapped with kerlix followed by JACQUE wraps from the hand to the shoulder. pt tolerated well. plan is for discharge home today with follow up in the lymphedema clinic tomorrow with Flores Davison. pt has been elevating arm on the foam arm elevator as ordered. pt aware to take this home with him as well.
[2024-10-07 09:05] VITALS: BP 92/44; PULSE 80; RESP 18; TEMP 36.8; O2SAT 94
[2024-10-07] MEDS: Heparin Injection (Vial) 5,000 UNIT/ML VIAL 5000 UNIT SC (09:11)
[2024-10-07] MEDS: Pantoprazole Sodium 40 MG Tablet PO (09:11)
--- NOTE | 2024-10-07 09:16 | PCM.PN.SRG ---
Subjective Subjective Doing well. Not much pain. Feeling well overall. No numbness or tingling. Objective Data Objective Data Vital Signs: Vital Signs Temp Pulse Resp BP Pulse Ox O2 Del Method O2 Flow Rate 98.3 F 80 18 92/44 L 94 Room Air 2 10/07/24 09:05 10/07/24 09:05 10/07/24 09:05 10/07/24 09:05 10/07/24 09:05 10/07/24 09:05 10/06/24 15:28 Oxygen Flow Rate (L/min) 2 Oxygen Delivery Method Room Air Weight: 194 lb 10.691 oz Body Mass Index (BMI) 26.4 Intake & Output: Intake and Output for Last 24 Hours 10/05/24 10/06/24 10/07/24 23:59 23:59 23:59 Intake Total 154.75 / 154.75 270 / 270 Output Total 600 / 600 1000 / 1000 Balance -445.25 / -445.25 -730 / -730 Physical Exam Narrative LUE: Wrap taken down. No hematoma. 5/5 thermometer production worker strength. Sensation to light touch intact throughout LUE. Compartments all soft. Skin viable. No signs of severe skin damage/wounds. Assessment & Plan Assessment/Plan (1) Lymphedema of left upper extremity: PLAN: POD 1 LUE liposuction. Expected course. Re-wrapped with compression. Admitted for observation and may be discharged now. Re-wrapped. Will see OT tomorrow for compression garment/therapy F/u in 1 week in our office. Plan for rest and elevation of LUE tonight. Charges/Coding Procedures Integumentary [id number]: 78036 Global Visit
--- NOTE | 2024-10-07 09:22 | CASEMGMT ---
Met with patient to complete MCGEE form. MCGEE form explained to patient who voiced understanding and signed form. Original form placed in pt?s chart and copy provided to patient. Milena Romo, Discharge Planning Asst
--- NOTE | 2024-10-07 10:15 | CASEMGMT ---
DUANE CM into pt room, pt sitting up on eob with at bedside. Pt states he is set up for OT tomorrow at [facility]. Pt denies any further homegoing needs. He states his is able to help him at home should he need it. Pt is up indep without device. Pt has dc order in and is dressed ready to go home.
--- NOTE | 2024-10-07 10:18 | PHA.DC_ITS ---
Pharmacy [facility] has performed discharge medication reconciliation and counseling for this patient. 1. CEPHALEXIN 500MG PO Q8 X 7 DAYS 2. OXYCODONE 5MG PO Q6H PRN PAIN The patient's discharge medication list was reviewed for discrepancies and discrepancies were resolved. The patient was counseled on the following discharge medications and changes in medications for homegoing were reviewed. The Reason for Use, instructions for use, and potential side effects were reviewed for all new medications. The patient's questions regarding all of their medications were answered. The patient was able to verbally demonstrate an understanding of their discharge medications. Patient counseled by pharmacy picking technician, Fabio. Medications at Discharge Home Medications latanoprost 0.005 % eye drops 1 drp EACH EYE QHS Check with primary doctor 03/27/15 pravastatin 80 mg tablet 80 mg PO QHS Check with primary doctor 06/15/19 carisoprodol 350 mg tablet 350 mg PO 4X/DAY PRN Muscle Spasm 12/23/19 mirtazapine 30 mg tablet 30 mg PO QHS Check with primary doctor 12/23/19 pantoprazole 40 mg tablet,delayed release (Protonix) 40 mg PO DAILY reflux 11/02/20 ferrous sulfate 140 mg (45 mg iron) tablet,extended release 140 mg PO DAILY 03/05/23 aspirin 81 mg chewable tablet 81 mg PO DAILY Check with primary doctor 12/31/23 hydralazine 100 mg tablet 100 mg PO BID 04/17/24 liothyronine 5 mcg tablet 10 mcg PO DAILY 04/17/24 losartan 100 mg tablet 100 mg PO DAILY 04/17/24 venlafaxine 150 mg capsule,extended release 24 hr 150 mg PO DAILY 04/17/24 ibrutinib 420 mg tablet 420 mg PO QDAY 30 days #30 tabs 05/24/24 ammonium lactate 12 % lotion 1 applic topical BID 09/26/24 levothyroxine 100 mcg tablet 100 mcg PO DAILY 09/26/24 sucralfate 1 gram tablet (Carafate) 1 g PO BID PRN reflux #14 tabs 09/26/24 cephalexin 500 mg capsule 500 mg PO Q8H 7 days #21 caps 10/06/24 oxycodone 5 mg tablet 5 mg PO Q6H PRN pain 5 days #14 tabs 10/06/24
[2024-10-07 10:30] VITALS: BP 109/61; PULSE 76; RESP 17; TEMP 36.8; O2SAT 95
== END 2024-10-07 11:00 | disposition home or self-care (01) ==
LOC: SDC 14:22 → MS3 14:22
PROVIDERS: Admitting Provider Surgery Plastic and Reconstructive Surgery; PCP Preventive Medicine Occupational Medicine; Referring Provider Surgery Plastic and Reconstructive Surgery; Visit Provider Surgery Plastic and Reconstructive Surgery
PROC: (CPT 15878; principal; 2024-10-06 07:15)
DX: I97.89 Other postprocedural complications and disorders of the circulatory system, not elsewhere classified (principal); C91.10 Chronic lymphocytic leukemia of B-cell type not having achieved remission; I89.0 Lymphedema, not elsewhere classified; I10 Essential (primary) hypertension; E78.00 Pure hypercholesterolemia, unspecified; E03.9 Hypothyroidism, unspecified; K21.9 Gastro-esophageal reflux disease without esophagitis; Z79.82 Long term (current) use of aspirin; Z79.890 Hormone replacement therapy; Z79.899 Other long term (current) drug therapy; Z86.73 Personal history of transient ischemic attack (TIA), and cerebral infarction without residual deficits
CPT/HCPCS: 15878; 00400; 94668; 96365; 96372; 96376; 99221; A4216; G0378; J2405

== ENCOUNTER → 2024-10-25 | Outpatient (CLI) | payer MEDICARE, OTHER, SELFPAY ==
[2024-10-25 12:49] LABS: PSA,Total- Diagnostic 0.63 ng/mL (0.00-4.00)
== END | disposition home or self-care (01) ==
LOC: PAVLAB 11:46
PROVIDERS: PCP Preventive Medicine Occupational Medicine; Referring Provider Urology; Visit Provider Urology
DX: N40.1 Benign prostatic hyperplasia with lower urinary tract symptoms (principal)
CPT/HCPCS: 36415; 84153

== ENCOUNTER 2024-12-13 10:00 | Outpatient (RCR) | payer MEDICARE, OTHER, SELFPAY ==
--- NOTE | 2024-10-08 12:09 | HP.OTEVAL_ITS ---
Patient's Visit Information Visit Information Visit Information: LUCIEN BASS is a 79 year old M, referred to Occupational Therapy by Dr. Baldo Marsh MD, with a diagnosis of lymphedema. Date of Evaluation: 10/08/24 Occupational Therapist: Vika Davison, ANTIONETTER/Khalif, CHT Subjective Subjective: This 79-year-old male was seen for OT eval with dx of stage III lymphedema 2 dates s/p from liposuction for his bulky lymphedema - pt states he spent the night in the hospital. States Dr. Marsh wrapped his arm prior to leaving the hospital but he took it off when he got home because he felt the elton wrap was too tight. Pt arrives with his without arm being wrapped. pt has home vas pneumatic pump to support circulation has been told he can use it on light setting only. Pain left UE: Current Pain Intensity: 2 Pain Intensity Range: 0 and 3 Lymphedema (Circumferential Measure) MCP: left 24cm Wrist: left 22cm Lower forearm: left 25cm Largest forearm: left 31cm Elbow: left 31.5cm Largest humerus: left 29.5cm Axcillary: left 30cm Upper Exremity Comments: pt demo with slight seeping from incision Goals Goal: Patient will demonstrate a 20% reduction in edema by discharge: Yes Goal: Patient will demonstrate adequate knowledge of self-bandaging by the end of the first week.: Yes Goal: Patient will demonstrate adequate knowledge of self-massage by the end of the second week.: Yes Goal: Patient will demonstrate adequate knowledge of skin care and precautions by the end of the first week.: Yes Goal: Patient will demonstrate adequate knowledge of therapeutic exercises by discharge.: Yes Goal: Patient will select an appropriate compression garment and demonstrate adequate knowledge of correct donning technique, care and wearing schedule by discharge.: Yes Goal: Patient will voice understanding of need to replace compression garment every four to six months by discharge.: Yes Rehabilitation General Assessment: pt arrives 2 days s/p from initial stage of multistage liposuction for his bulky lymphedema stage III. Pt in need of skilled OT services 2-3x week for 4-6 weeks to assist pt in mtg of left UE lymphedema. Today therapist ed. pt and pts of short stretch wrap of left UE for lymphedema- pt and were ed. we will wrap and take measurements Friday to see if arm edema resolves followed with measurements for compression sleeve 30- 40mmHg and glove. pt instructed in use of compression wrap 23 hrs. allowing for removal for shower only and re-wrapped withing 45 -60 min of shower.pt instructed in AROM to shoulder-elbow- digits to improve circulation - pt and pts demo understanding and agree to POC. Rehabilitation Potential: Good Anticipated Interventions Anticipated Interventions: A/AAROM/PROM, Edema Control, Education re Self- Bandaging Techniques, Education re Skin Care and Precautions, Education re Self Massage Techniques, Education re Correct Donning Tech,Care&Wearing Sched Comp Garments, Caregiver Training and Home Program Visit Plan Frequency: 2-3x /Week Duration: 4 Weeks General Plan: improve pts edema with short stretch wrapping and fit from compression sleeve 30-40mmHg TEXT: Thank you for the opportunity to evaluate your patient. For Medicare and Medicare HMO plans, please review the plan of care and approve it. It will need to be FAXED BACK to us at [phone] for Medicare purposes. Please let me know if there are questions or concerns regarding this plan of care. Physician Signature: Date:
--- NOTE | 2025-03-08 12:04 | HP.OTDCNRP_ITS ---
Patient Information Patient Information: LUCIEN BASS was seen in my office for initial evaluation on 10/08/24. The following Plan of Care was established for this patient: POC Established Initial Frequency: 2-3x /Week Initial Duration: 4 Weeks Plan: see pt in 4 weeks to check on his limb size Anticipated Interventions Anticipated Interventions: A/AAROM/PROM, Edema Control, Education re Self- Bandaging Techniques, Education re Skin Care and Precautions, Education re Self Massage Techniques, Education re Correct Donning Tech,Care&Wearing Sched Comp Garments, Caregiver Training and Home Program Last Seen Last Seen: This patient was last seen in our office 12/13/24. Pertinent comments regarding their Occupational therapy will appear below: no further apts have been scheduled and due to time lapse in services pt is d/c at this time. At this point I will be discontinuing this patient from occupational therapy. I would be happy to see this patient again in the future if found appropriate by the physician. Thank you! Vika Davison, OTR/L, CHT
== END 2024-12-13 19:00 | disposition home or self-care (01) ==
LOC: OT 10:00
PROVIDERS: PCP Preventive Medicine Occupational Medicine; Referring Provider Surgery Plastic and Reconstructive Surgery; Visit Provider Surgery Plastic and Reconstructive Surgery
DX: I89.0 Lymphedema, not elsewhere classified (principal)
CPT/HCPCS: 97166; 97530

== ENCOUNTER → 2025-04-13 | Outpatient (CLI) | payer MEDICARE, OTHER, SELFPAY ==
--- NOTE | 2025-04-13 14:55 | CT_ITS ---
PROCEDURE: SOFT TISSUE NECK WITH CONTRAST 04/13/2025 REASON FOR EXAM: CLL TECHNIQUE: Procedure Code: CTNEW Modality: CT Procedure: SOFT TISSUE NECK WITH CONTRAST CONTRAST: Isovue 370 VOLUME: 97 mL One or more dose reduction techniques were used (e.g., Automated exposure control, adjustment of the mA and/or kV according to patient size, use of iterative reconstruction technique). RADIATION DOSE SUMMARY: CTDlvol: 11.86 mGy DLP: 4064.0 mGycm COMPARISON: None. FINDINGS: Airway: Midline and patent. Salivary glands: Unremarkable. Lymph nodes: Multiple mildly enlarged lymph nodes in the neck. For example right level IIB lymph node measures 2.3 x 1.4 x 3.9 cm. Thyroid: Unremarkable. Vasculature: Unremarkable. Orbits: Unremarkable as visualized. Paranasal sinuses and mastoids: Clear. Lung apices: Clear Upper mediastinum: Unremarkable. Bones: No acute bony abnormalities. CT/Soft Tissue Neck WITH Contrast IMPRESSION: Multiple enlarged lymph nodes in the neck. For example right level IIB lymph no de measures 2.3 x 1.4 x 3.9 cm. Reading Location: REPLACED BY [facility]
--- NOTE | 2025-04-13 14:55 | CT_ITS ---
PROCEDURE: CT CHEST, ABD, PEL W/CONTRAST 04/13/2025 REASON FOR EXAM: CLL-IV ONLY TECHNIQUE: Chest, abdomen and pelvis CT with intravenous contrast. Coronal and Sagittal reconstruction series were provided. One or more dose reduction techniques were used (e.g., Automated exposure control, adjustment of the mA and/or kV according to patient size, use of iterative reconstruction technique. PATIENT PREPARATION: Per protocol ORAL CONTRAST TYPE: None. CONTRAST: Isovue 370 VOLUME: 100mL RADIATION DOSE SUMMARY: CTDlvol: 13 mGy DLP: 1464.00 mGycm COMPARISON: Prior study dated September 26, 2024. FINDINGS: CT CHEST: Hardware: None Lymph nodes: Stable small mediastinal lymph nodes. Slight decrease in size of the previously seen bilateral axillary lymphadenopathy more prominent on the left side. Heart and Vasculature: The heart is nonenlarged. Coronary artery calcification. Atherosclerotic calcifications of the thoracic aorta. Pulmonary arteries are unremarkable. Lungs and Airways: Stable mild increased linear markings at the lung bases suggestive of scarring. Stable scarring in the left upper lobe. The previously seen heterogeneous infiltrate in the anterior aspect of the lingula segment of the left upper lobe is not seen at this time. Pleura: No pleural effusion. Bones: Degenerative changes of the thoracic spine. CT ABDOMEN/PELVIS: Liver: Normal size. No mass. Gallbladder: The gallbladder is unremarkable. Spleen: Normal size. Pancreas: Diffuse fatty atrophy. Adrenals: Unremarkable. Kidneys: 6.4 cm by 3.9 cm lobulated cyst in the lower pole of the left kidney. Small cyst in the inferior pole of the right kidney. Bladder: Mild degree of bladder wall thickening. Prosthetic enlargement with indentation of the bladder base. Radiation seeds are seen within the prostate. Bowel: Colonic diverticulosis without diverticulitis. Appendix: The appendix is not identified. There is no inflammatory process identified in the right lower quadrant to suggest appendicitis. Lymph nodes: There is evidence of retroperitoneal and pelvic lymphadenopathy. This has decreased in size and number as compared to prior study. Residual changes persist. Vasculature: Mild diffuse atherosclerotic calcifications are noted. Bones: Degenerative changes of the spine. CT/CT Chest, Abd, Pel w/Contrast IMPRESSION: Persistent bilateral axillary and retroperitoneal lymphadenopathy although ther e has been improvement as compared to prior study. Prostatic enlargement with indentation of the bladder base. Radiation seeds ar e seen within the prostate. Stable bilateral renal cysts more prominent on the left side. Reading Location: [id number]
== END | disposition home or self-care (01) ==
LOC: CT 14:51
PROVIDERS: PCP Student in an Organized Health Care Education/Training Program; Referring Provider Internal Medicine Medical Oncology; Visit Provider Internal Medicine Medical Oncology
DX: C91.12 Chronic lymphocytic leukemia of B-cell type in relapse (principal)
CPT/HCPCS: 70491; 71260; 74177; Q9967

== ENCOUNTER → 2025-05-23 | Outpatient (CLI) | payer MEDICARE, OTHER, SELFPAY ==
--- NOTE | 2025-05-23 09:57 | VDLE_ITS ---
Reason For Study Reason For Study: Bilateral leg swelling RIGHT LEFT GSV is normal. GSV is normal. CFV is compressible, spontaneous, phasic, competent CFV is compressible, spontaneous, phasic, competent, and demonstrates normal augmentation. and demonstrates normal augmentation. FV is compressible, spontaneous, phasic, competent FV is compressible, spontaneous, phasic, competent and demonstrates normal augmentation. and demonstrates normal augmentation. POP V is compressible, spontaneous, phasic, competent POP V is compressible, spontaneous, phasic, competent and demonstrates normal augmentation. and demonstrates normal augmentation. T/P Trunk is compressible. T/P Trunk is compressible. PTV is compressible. PTV is compressible. RT PerV is compressible. LT PerV is compressible. Multiple enlarged vascularized lymph nodes noted in Multiple enlarged vascularized lymph nodes noted in the right groin. the left groin. Procedure This is a venous duplex using B-mode, color flow and spectral Doppler. Exam performed in department. A preliminary report was called and/or faxed to [facility]. VL/Venous Duplex US - Hcepe Extrem Interpretation Summary Deep veins of the bilateral lower extremities are patent and compressible segme ntally. There is no evidence of bilateral lower extremity deep vein thrombosis. The bilateral great saphenous veins appea r patent and compressible segmentally. Prominent inguinal lymph nodes bilateral. Ordering Physician: Connor Roca Referring Physician: Kristina Sandhu Performed By: Gillian Haines RVT
== END | disposition home or self-care (01) ==
LOC: CVS 09:57
PROVIDERS: PCP Student in an Organized Health Care Education/Training Program; Referring Provider Internal Medicine Medical Oncology; Visit Provider Internal Medicine Medical Oncology
DX: M79.89 Other specified soft tissue disorders (principal); C91.12 Chronic lymphocytic leukemia of B-cell type in relapse
CPT/HCPCS: 93970